=== PATIENT | female | born 2005 | race Caucasian/White ===

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

== ENCOUNTER 2023-09-15 21:55 | Outpatient (CLI) | payer OTHER, SELFPAY ==
--- OUTSIDE RECORDS SUMMARY | 2023-09-15 22:15 | XMS RPT_ITS | CCD ---
Author Name Unknown Address [address] [place] [address] Organization [facility] Care Team Providers Care Sap Portal Developer Name Role Phone CHRISTIAN QUIJANO Admitting Unavailable CHRISTIAN QUIJANO Attending Unavailable CHRISTIAN QUIJANO Primary Care Unavailable BART, DR CHRIS Hopper Attending Unavaila manuel ARRIAGA, DR CHRIS Hopper Primary Care Unavaila manuel ARRIAGA, DR CHRIS Hopper Admitting Unavaila EDWIGE Cueto MD Attending Unavail able PHYSICIAN, NONE Primary Care Unavailable Unavailable Primary Care Provider UnavailKRYSTA Martinez Referring Unavailable KRYSTA RIVAS Attending Unavailable ROBBI SIMMONS Attending Unavailable KRYSTA RIVAS Referring Unavailable KRYSTA RIVAS Referring Unavailable MARIA ISABEL BENAVIDEZ Attending Unavailable Medications Current Medications Medication Drug Class(es) Dates Sig (Normalized) Sig (Original) azithromycin 500 mg oral tablet (1 source) Macrolide Antimicrobial Start: 09-13-2023 End: 09-13-2023 take 2 tablets by mouth once azithromycin (ZITHROMAX) 500 mg tablet Take 2 tablets by mouth one time only for 1 dose. 2 tablet 0 09/13/2023 09/13/2023 Active Completed/Discontinued Medications Medication Drug Class(es) Dates Sig (Normalized) Sig (Original) vit/iron fum/folic ac (-FOLIC ACID ORAL) (5 sources) take 1 tablet by hakeem th once daily before mealtime vit/iron fum/folic ac (-FOLIC ACID ORAL) Take 1 tablet by mouth once daily. 0 Active Problems Problem Classification Problem Date Documented Da te Episodic/Chronic Anxiety disorders (6 sources) Anxiety; Translations: [Anxiety disorder, unspecified] Onset: 07-20-2023 08-14-2023 Chronic Other complications of (6 sources) Maternal obesity complicating , childbirth and the puerperium, antepartum; Translations: [Obesity complicating , second trimester] Onset: 07-20-2023 08-14-2023 Chronic Other complications of (1 source) Obesity complicating , second trimester; Translations: [Obesity affecting in second trimester, unspecified obesity type] Onset: 07-20-2023 Chronic Other complications of (7 sources) Late entry into care; Translations: [Supervision of with insufficient care, second trimester] Onset: 07-20-2023 08-14-2023 Episodic Other complications of (6 sources) Nausea and vomiting; Translations: [Vomiting of , unspecified] Onset: 07-20-2023 08-14-2023 Episodic Other complications of (6 sources) Vaginal discharge; Translations: [Other specified related conditions, second trimester] Onset: 07-20-2023 07-20-2023 Episodic Other complications of (5 sources) Infectious disease in mother complicating , childbirth AND/OR puerperium; Translations: [Other maternal infectious and parasitic diseases complicating , first trimester] Onset: 07-21-2023 07-21-2023 Episodic Other hematologic conditions (3 sources) Microcytosis; Translations: [Other abnormality of red blood cells] Onset: 08-16-2023 08-16-2023 Episodic Other non-traumatic joint disorders (5 sources) Hip pain; Translations: [Pain in right hip] Onset: 07-20-2023 07-20-2023 Episodic Other and delivery including normal (9 sources) with uncertain dates; Translations: [Encounter for supervision of normal , unspecified, first trimester] Onset: 07-20-2023 07-20-2023 Episodic Other screening for suspected conditions (not mental disorders or infectious disease) (1 source) Patient encounter status; Translations: [Encounter for other screening follow-up] 08-30-2023 Episodic Other skin disorders (5 sources) Hidradenitis suppurativa; Translations: [Hidradenitis suppurativa] Onset: 07-20-2023 07-20-2023 Episodic Residual codes; unclassified (2 sources) Gestation period, 18 weeks; Translations: [18 weeks gestation of ] 08-14-2023 Episodic Residual codes; unclassified (5 sources) Gestation period, 15 weeks; Translations: [15 weeks gestation of ] Onset: 07-20-2023 07-20-2023 Episodic Residual codes; unclassified (5 sources) FH: Chromosomal anomaly; Translations: [Family history of other congenital malformations, deformations and chromosomal abnormalities] Onset: 07-20-2023 07-20-2023 Episodic Residual codes; unclassified (5 sources) Insomnia; Translations: [Insomnia, unspecified] Onset: 07-20-2023 07-20-2023 Episodic Residual codes; unclassified (1 source) Gestation period, 21 weeks; Translations: [21 weeks gestation of ] 08-31-2023 Episodic Residual codes; unclassified (1 source) Gestation period, 22 weeks; Translations: [22 weeks gestation of ] 09-11-2023 Episodic Residual codes; unclassified (1 source) 18 weeks gestation of ; Translations: [18 weeks gestation of ] Onset: 08-30-2023 Episodic Residual codes; unclassified (1 source) 15 weeks gestation of ; Translations: [15 weeks gestation of ] Onset: 07-20-2023 Episodic Screening and history of mental health and substance abuse codes (5 sources) History of post-traumatic stress disorder; Translations: [Personal history of other mental and behavioral disorders] Onset: 07-20-2023 07-20-2023 Episodic Results Test Name Value Interpretation Reference Range Facil ity Vital Signs Date Time Vital Sign Value Performing Clinician Lubna mayers 09-11-2023 14:31-0500 Body weight 123.29 kg Robbi Simmons MD Work Phone: [facility] 09-11-2023 14:31-0500 Diastolic blood pressure 70 mm[Hg] Robbi Simmons MD Work Phone: [facility] 09-11-2023 14:31-0500 Systolic blood pressure 120 mm[Hg] Robbi Simmons MD Work Phone: [facility] 08-14-2023 14:34-0500 Body weight 121.11 kg Maria Isabel Benavidez APRN.BASSEM Work Phone: [facility] 08-14-2023 14:34-0500 Diastolic blood pressure 60 mm[Hg] Maria Isabel Benavidez APRN.CNM Work Phone: [facility] 08-14-2023 14:34-0500 Systolic blood pressure 106 mm[Hg] Maria Isabel Benavidez APRN.CNM Work Phone: [facility] Encounters Encounter Date Encounter Type Care Provider Facility Start: 09-13-2023 Telephone encounter Maria Isabel melchor COMMUNICATIONS PROGRAMMER.CNM Work Phone: OB/Gynecology Procedures Date Procedure Procedure Detail Performing Clinician Start: 08-30-2023 Us preg uterus after 1st trimest 07/10 gestation Krysta Rivas COMMUNICATIONS PROGRAMMER.TUGBOAT OPERATOR Work Phone: Start: 08-14-2023 Antibody screen KRYSTA H ABRAM Plan of Treatment Date Care Activity Detail Author Start: 02-19-2025 Urine microalbumin profile DTaP,Tdap,Td Vaccine (7 - Td or Tdap) [facility] Start: 09-10-2024 GC (Gonorrhea) Screening (18-24) GC (Gonorrhea) Screening (18-24) [facility] Start: 09-10-2024 Screening for Chlamydia trachomatis Chlamydia Screening (18-24) [facility] Start: 07-20-2024 GC (Gonorrhea) Screening (18-24) GC (Gonorrhea) Screening (18-24) [facility] Start: 07-20-2024 Screening for Chlamydia trachomatis Chlamydia Screening (18-24) [facility] Start: 10-12-2023 End: 01-11-2024 CBC W Auto Differential panel - Blood CBC + DIFF Lab Routine 22 weeks gestation of Late care affecting in second trimester Encounter for supervision of normal first in second trimester Expected: 10/12/2023 (Approximate), Expires: 01/11/2024 [facility] Work Phone: Immunizations Immunization Date Immunization Notes Care Provider Amando orourke 04-03-2017 influenza virus vacc ine, unspecified formulation Maria Isabel Benavidez APRN.CNM Work Phone: [facility] Payers Date Payer Category Payer Medicaid [id number] 2023 Medicaid [id number] 2023 Unknown [id number] 2022 Unknown 2022 Unknown [id number] 2003 Unknown [id number] 1980 Unknown [id number] 1980 Unknown [id number] Unknown [id number] Social History Date Type Detail Facility Start: 07-20-2023 Tobacco smoking stat [facility] Never smoked tobacco [facility] Start: 07-20-2023 Tobacco use and exposure Smokeless tobacco non-user [facility] Start: 08-14-2023 End: 09-11-2023 Alcohol intake Ex-drinker (finding) [facility] Start: 07-20-2023 End: 08-14-2023 History of Social function [facility] Start: 07-20-2023 End: 08-14-2023 Tobacco use panel [facility] National Score (1-10 0), lower number is lower risk [address] [facility] Start: 07-20-2023 Alcohol Comment occasionally p rior to [facility] Start: 04-20-[address] [facility] Start: 2005 Sex Assigned At Not on file [facility] Goals Date Patient Goal Desired Activity /State Personal health goal Clinical Notes 06-26-2023 to 09-13-2023 Addendum Note - Maria Isabel Benavidez APRN.CNM - 09/13/2023 10:29 AM ESTTelephone Encounter - Maria Isabel Benavidez APRN.CNM - 09/13/2023 10:29 AM ESTPatient InstructionsPatient Instructions Note Date & Type Note Facility 09-13-2023 Miscellaneous Notes Addended by: MARIA ISABEL BENAVIDEZ on: 09/13/2023 10:29 AM Modules accepted: Orders Rx sent. Maria Isabel Benavidez APRN.CNM Addended by: JACQUELINE SOLORIO on: 09/13/2023 09:21 AM Modules accepted: Orders Patient notified and voiced understanding. Health department form filled out and faxed. Patient testing also positive for BV. Discussed results with patient. Please order medication for BV. Thank you. Jacqueline Solorio RN Rx sent for Azithromycin 1000 mg PO X1 dose. This is recommended treatment in . Patient's partner will need treated. Maria Isabel Benavidez APRN.CNM Patient 22w6d, positive for Chlamydia. Please review and order medication in SW's absence. Jacqueline Solorio RN documented in this encounter [facility] 09-11-2023 Miscellaneous Notes Formattin g of this note might be different from the original. SW- Pt doing well. No pain, vb, lof. No FM yet. PE: Gen- NAD, well appearing Abd- Soft, gravid, NT Ext- No edema - White-lugo vaginal discharge present See flowsheet A/p 22 wk gestation - DHRUV for chlamydia completed today - She feels mood stable and declines counseling - 28 wk labs ordered - BV, yeast for discharge - RTO 2 wks Robbi Simmons DO documented in this encounter [facility] 09-11-2023 Instructions Raquel Newman MA - 09/11/2023 2:30 PM EST SEQUENTIAL SCREENINGS The [facility] offers sequential screenings for women who are interested in screenings for chromosomal abnormalities and certain defects during a . The sequential screen combines ultrasound and blood tests to determine the risk of chromosomal abnormalities, including Down's Syndrome (Trisomy 21) and Trisomy 18, as well as open neural tube defects including spina bifida. Ultrasound examination is performed between 11 weeks and 13 weeks gestational age. Blood tests are drawn after the ultrasound and again later in the between 15 and 21 weeks gestational age. Please let your physician know if you are interested in this testing. It will require an appointment with our medical instrument technician. This is not an ultrasound performed by a physician in our office during a routine visit. SIGNS AND SYMPTOMS OF LABOR 1. Contractions every 10 minutes or more often 2. Clear, pink, or brownish fluid (water) leaking from vagina 3. Feeling that baby is pushing down, pressure 4. Low, dull backache 5. Cramps that feel like a period 6. Cramps with or without diarrhea If you notice any of the above symptoms, contact our office at [phone] and ask to speak with a nurse. After hours, you can call doctors registry at [phone] OR call [facility] at [phone] and ask to have the doctor infusion therapy nurse paged. If you consider this an emergency, dial 9-1-6 or go to your nearest emergency department. NEED HELP? Are you dealing with a violent or abusive relationship? Are you a victim of rape or sexual assult? Call [facility] ([place]) 24 hour Crisis Hotline: 373.776.1342 or 493-831-9355. MANUAL Your Guide to a Healthy manual is now on-line. Visit [email or web address] to download your free copy documented in this encounter [facility] 08-14-2023 Miscellaneous Notes Formattin g of this note might be different from the original. Wahandat message sent regarding suboptimal views of anatomy and need of follow up. Krysta Rivas APRN.RAN documented in this encounter [facility] 08-14-2023 Miscellaneous Notes Formattin g of this note might be different from the original. S: Adilene Thurman is a 17 year old female who presents at 18.4 weeks gestation for a routine visit. Just completed anatomy US - needs repeat views in 2 weeks. Thinks she may have started feeling flutters. Continues to have random emesis. Denies any acid reflux. Denies headache, visual changes, chest pain, shortness of breath, vaginal bleeding, leakage of fluid, or dysuria. Feeling well, no complaints. O: See flow sheet Gen: No apparent distress Abd: Gravid, non tender ASSESSMENT/PLAN: 1. 18 weeks gestation of - ICD9: V22.2, ICD10: Z3A.18 (primary diagnosis) 2. Obesity affecting in second trimester, unspecified obesity type - ICD9: 649.13, ICD10: O99.212 3. Late care affecting in second trimester - ICD9: V23.7, ICD10: O09.3 4. Nausea/vomiting in - ICD9: 643.90, ICD10: O21.9 5. Anxiety - ICD9: 300.00, ICD10: F41.9 - Chlamydia- needs DHRUV next visit - Reviewed if unable to keep food or liquids down >24 hours to notify office - RTO- 2 weeks for repeat anatomy and 4 weeks for LINDSEY Benavidez APRN.CNM documented in this encounter [facility] 08-14-2023 Instructions Vida Hill Ma - 08/14/2023 2:34 PM EST SEQUENTIAL SCREENINGS The [facility] offers sequential screenings for women who are interested in screenings for chromosomal abnormalities and certain defects during a . The sequential screen combines ultrasound and blood tests to determine the risk of chromosomal abnormalities, including Down's Syndrome (Trisomy 21) and Trisomy 18, as well as open neural tube defects including spina bifida. Ultrasound examination is performed between 11 weeks and 13 weeks gestational age. Blood tests are drawn after the ultrasound and again later in the between 15 and 21 weeks gestational age. Please let your physician know if you are interested in this testing. It will require an appointment with our medical instrument technician. This is not an ultrasound performed by a physician in our office during a routine visit. SIGNS AND SYMPTOMS OF LABOR 1. Contractions every 10 minutes or more often 2. Clear, pink, or brownish fluid (water) leaking from vagina 3. Feeling that baby is pushing down, pressure 4. Low, dull backache 5. Cramps that feel like a period 6. Cramps with or without diarrhea If you notice any of the above symptoms, contact our office at [phone] and ask to speak with a nurse. After hours, you can call doctors registry at [phone] OR call [facility] at [phone] and ask to have the doctor infusion therapy nurse paged. If you consider this an emergency, dial [phone] or go to your nearest emergency department. NEED HELP? Are you dealing with a violent or abusive relationship? Are you a victim of rape or sexual assult? Call [facility] ([place]) 24 hour Crisis Hotline: 261.411.9750 or 997-009-2218. MANUAL Your Guide to a Healthy manual is now on-line. Visit [email or web address] to download your free copy documented in this encounter [facility] 07-20-2023 Note HNO ID: [id number] Author: KRYSTA RIVAS APRN.TUGBOAT OPERATOR Service: ? Author Type: Nurse Practitioner Type: Progress Notes Filed: 07/20/2023 13:34 Note Text: INITIAL OB ASSESSMENT HPI: Adilene is a 17 year old No obstetric history on file. White here to establish Obstetrical Care. Patient's last menstrual period was 04/06/2023 (exact date). from OB Dating Form. Do you have regular periods/menstrual cycles? Yes was unplanned but accepted Complaints: No-vomiting every few days OB History T0 L0 SAB0 IAB0 Ectopic0 Multiple0 Live Births0 How many pregnancies have you had before? none Have you had a prior olivo between 20w and 36w6d? No Did you present in active spontaneous labor or have ruptured membranes, or advanced cervical dilation (greater than or equal to 4 cm) or effacement? No Did you have a previous baby with a GBS Infection? No Please select all that apply for any prior : N/A Did you have a partner with Herpes? No Prior : never History of 4th degree laceration: N/A Patient's Risk Screening for delivery: MEDICAL/PSYCHOSOCIAL HISTORY: History of hemorrhage or bleeding concerns: No Thyroid Disease: No History of chronic hypertension: No History of pre-existing diabetes: No BMI 45.13 kg/(m2) History of abnormal pap: No Prior treatment for cervical dysplasia: none. History of STDs: None Tobacco use: No E-Cigarette/Vaping Use: No Caffeine use: No Drug use: No Alcohol use: No Multivitamin with Folic acid: Yes Religion or heritage: No Would refuse blood transfusion if medically necessary: No No results found for: ABORHD Social Needs: How often does this describe you? I don't have enough money to pay my bills: Often Within the past 12 months, have you worried that your food would run out before you had money to buy more? Never In the past 12 months, has lack of reliable transportation kept you from going to medical appointments or work, or from getting things needed for daily living? Never In the past 12 months, have you had any concerns about having a place to live, or about the condition or quality of your housing? Never Would you like more information on any of the following (please check all that apply)? No Social History: Do you have any history of depression, anxiety, PTSD, or other mood problems? Yes -PTSD in 2020-feels it has resolved. Do you have a history of abuse or trauma that may impact your experience? No Are you currently employed? Yes Depression/Anxiety Screening: denies symptoms of depression. OB Depression and Anxiety Screening- This Encounter (since 07/19/2023) Over the past 2 weeks have you felt down, depressed, or hopeless? Negative Over the past two weeks, have you felt little interest or pleasure in doing things?? Negative Feeling nervous, anxious or on edge 3-Nearly every day Not being able to stop or control worrying 0-Not al all Anxiety Pre-Screening Total (If >/= 3 additional questions will be reviewed) 3 Worrying too much about different things 0-Not al all Trouble relaxing 0-Not al all Being so restless that it is hard to sit still 0-Not al all Becoming easily annoyed or irritable 1-Several days Feeling afraid, as if something awful might happen 0-Not al all Anxiety (LILY) Full Screening Total 4 ACOG Recommended Screening: Screening for early gestational diabetes testing: Criteria for early testing requires elevated BMI plus one other risk factor: BMI 45.13 kg/(m2) (risk factor if > than 25 or 23 in Americans) Additional risk factors: None She does meet ACOG criteria for early gestational DM screening. Screening for low dose aspirin use for the prevention of pre-eclampsia: Low dose aspirin should be considered if the patient has one high or two moderate risk factors: High risk factors: None Moderate risk ractors: Nulliparity and Obesity (body mass index greater than 30) She does meet criteria for low dose ASA Marital Status:Co-habitating Partner: Name: Doug Gamble Age: 24 Occupation: [employer] Gender: Male History of STDs: None History reviewed. No pertinent past medical history. History reviewed. No pertinent surgical history. Current Outpatient Medications Medication Sig Dispense Refill vit/iron fum/folic ac (-FOLIC ACID ORAL) Take 1 tablet by mouth once daily. No current facility-administered medications for this visit. Allergies As of Date: 07/20/2023 (No Known Allergies) Fully Assessed 07/20/2023 Does patient have penicillin allergy: No REVIEW OF SYSTEMS: GENERAL: Negative for: Fever or Chills HEENT: Negative for: Headache, Impaired Vision, Ringing in Ears, Nosebleeds NECK: Negative for: Swelling, Pain, Stiffness RESPIRATORY: Negative for: Shortness of breath, Wheezing + cough GASTROINTESTINAL: Negative for: Heartburn, Constipation, Diarrhea (more content not included)... [facility] 06-26-2023 Note HNO ID: [id number] Author: Isabel Marte APRN.TUGBOAT OPERATOR Service: ? Author Type: Nurse Practitioner Type: Progress Notes Filed: 06/26/2023 7:08 PM Note Text: Subjective The history is provided by the patient. No languages and literature instructor was used. HPI Adilene Thurman is a 17 year old female who presents today for CC of sore throat, fever for 4 days. She is also having cough, congestion and runny nose. She has used no treatment or medication. No known exposure to strep or covid. BP 126/82 Pulse 106 Temp 36.9 ?C (98.5 ?F) Resp 16 Wt 125.6 kg (277 lb) SpO2 97% No past medical history on file. I have confirmed and edited as necessary, the [facility] Review of Systems Constitutional: Positive for fever (ist day) and malaise/fatigue. Negative for chills. HENT: Positive for congestion, sinus pain and sore throat. Negative for ear pain. Respiratory: Positive for cough. Negative for sputum production, shortness of breath and wheezing. Cardiovascular: Negative for chest pain. Gastrointestinal: Negative for abdominal pain, diarrhea, nausea and vomiting. Musculoskeletal: Positive for myalgias. Neurological: Positive for headaches. Objective Physical Exam Vitals and nursing note reviewed. HENT: Head: Normocephalic and atraumatic. Right Ear: Tympanic membrane, ear canal and external ear normal. Left Ear: Tympanic membrane, ear canal and external ear normal. Nose: Mucosal edema, congestion and rhinorrhea present. Right Sinus: No maxillary sinus tenderness or frontal sinus tenderness. Left Sinus: No maxillary sinus tenderness or frontal sinus tenderness. Mouth/Throat: Pharynx: Uvula midline. Posterior oropharyngeal erythema present. No oropharyngeal exudate. Cardiovascular: Rate and Rhythm: Normal rate and regular rhythm. Heart sounds: Normal heart sounds. Pulmonary: Effort: Pulmonary effort is normal. Breath sounds: Normal breath sounds. Lymphadenopathy: Head: Right side of head: No submental, submandibular or tonsillar adenopathy. Left side of head: No submental, submandibular or tonsillar adenopathy. Cervical: No cervical adenopathy. Skin: General: Skin is warm and dry. Neurological: Mental Status: She is alert. Psychiatric: Mood and Affect: Affect normal. ASSESSMENT/PLAN: 1. Sore throat - ICD9: 462, ICD10: J02.9 (primary diagnosis) - suspect viral - Group A strep molecular testing negative - Discussed supportive care treatment with fluids, rest and analgesia. - The patient may also use warm salt water gargles, throat lozenges and/or OTC throat spray as needed. - The patient should follow up in one week if symptoms persist or worsen - Call back if drooling, increased temperature, symptoms of dehydration and/or still sick in one week 2. URI with cough and congestion - ICD9: 465.9, ICD10: J06.9 - Discussed viral etiology and rationale for treatment. - Symptomatic treatment with prn analgesia - Supportive care with fluids and rest Testing ordered Comfort measures discussed - see patient instructions. When to seek higher level of care Notified in 12-24 hours with results, available on mychart - COVID AND INFLUENZA A/B AND RSV NAAT, ROUTINE Diagnosis and treatment plan were discussed and questions were answered to the patient's satisfaction. Pt acknowledged understanding of concepts and follow up plan. Specific signs and symptoms that would indicate the need for higher level of care were discussed in detail warranting prompt ER evaluation. Isabel Marte APRN.CNP [facility] Diagnosis 18 weeks gestation of - Primary state, incidental [facility] Diagnosis Encounter for follow-up ultrasound of anatomy- Primary 21 weeks gestation of state, incidental [facility] Diagnosis 22 weeks gestation of - Primary state, incidental Late care affecting in second trimester Encounter for supervision of normal first in second trimester Supervision of normal first Vaginal discharge Leukorrhea, not specified as infective documented in this encounter [facility] for referral (narrative)* Diagnostic Procedure Only (Routine) - Pending Review Specialty Diagnoses / Procedures Referred By Miguelangel banks Referred To Contact [facility] Diagnoses 18 weeks gestation of Procedures OBSTETRIC ULTRASOUND WHI US PREG UTERUS AFTER 1ST TRIMEST GESTATION Krysta Rivas APRN.CNP [address] [place] [address] [address] Referral ID Status Reason Start Date Expiration Date Visits Requested Visits Authorized [id number] Pending Review Auto-Generat ed Referral 08/14/2023 08/13/2024 1 1 [facility] Summary Purpose Family History No Family History Records FoundNo Family History Records FoundNo Family History Records Found Advance Directives No Advanced Directives Records FoundNo Advanced Directives Records FoundNo Advanced Directives Records Found Health Concerns Problem Noted Date Diagnosed Date [facility] - [facility] 07/20/2023 [place] - [place] 07/20/2023 Problem Noted Date Diagnosed Date [facility] Education - [facility] 07/20/2023 Education - [place] 07/20/2023 Problem Noted Date Diagnosed Date [facility] Education - [facility] 07/20/2023 Education - [place] 07/20/2023 Problem Noted Date Diagnosed Date [facility] Education - [facility] 07/20/2023 Education - [place] 07/20/2023 Problem Noted Date Diagnosed Date [facility] Education - [facility] 07/20/2023 [place] - [place] 07/20/2023 Additional Source Comments INFORMATION SOURCE (unrecogn ized section and content) DATE CREATED AUTHOR AUTHOR'S ORGANIZ ATION 04/16/2023 [facility] ([place]) DATE CREATED AUTHOR AUTHOR'S ORGANIZ ATION 09/14/2023 [facility] Source Comments (unrecognize d section and content) In the event this informatio n is protected by the Federal Confidentiality of Alcohol and Drug Abuse Patient Records regulations: The Federal rules restrict any use of the information to criminally investigate or prosecute any alcohol or drug abuse patient.[facility] HospitalIn the event this information is protected by the Federal Confidentiality of Alcohol and Drug Abuse Patient Records regulations: The Federal rules restrict any use of the information to criminally investigate or prosecute any alcohol or drug abuse patient.[facility] HospitalIn the event this information is protected by the Federal Confidentiality of Alcohol and Drug Abuse Patient Records regulations: The Federal rules restrict any use of the information to criminally investigate or prosecute any alcohol or drug abuse patient.[facility] HospitalIn the event this information is protected by the Federal Confidentiality of Alcohol and Drug Abuse Patient Records regulations: The Federal rules restrict any use of the information to criminally investigate or prosecute any alcohol or drug abuse patient.[facility] HospitalIn the event this information is protected by the Federal Confidentiality of Alcohol and Drug Abuse Patient Records regulations: The Federal rules restrict any use of the information to criminally investigate or prosecute any alcohol or drug abuse patient.[facility] Reason for Visit (unrecogniz ed section and content) Reason Comments Results Orders Reason Comments US Specialty Diagnoses / Procedures Referred By Contac t Referred To Contact [facility] Diagnoses 18 weeks gestation of Procedures OBSTETRIC ULTRASOUND WHI US PREG UTERUS AFTER 1ST TRIMEST GESTATION Krysta Rivas, MAURILIO.TUGBOAT OPERATOR [address] [place] [address] [facility] [address] [place] [address] Referral ID Status Reason Start Date Expiration Date V isits Requested Visits Authorized [id number] Closed Auto-Generate d Referral 08/14/2023 08/13/2024 1 1 Reason Onset Date Comments Care 09/11/2023 Reason Comments STD FOR RECORDS PERTAINING TO PATIENTS WHO ARE OR HAVE BEEN ENROLLED IN A CHEMICAL DEPENDENCY/SUBSTANCEABUSE PROGRAM, SOME INFORMATION MAY BE OMITTED. This clinical summary was aggregated from multiple sources. Caution should be exercised in using it in the provision of clinical care. This summary normalizes information from multiple sources, and as a consequence, information in this document may materially change the coding, format and clinical context of patient data. In addition, data may be omitted in some cases. CLINICAL DECISIONS SHOULD BE BASED ON THE PRIMARY CLINICAL RECORDS. [facility] [employer] [facility]. provides no warranty or guarantee of the accuracy or completeness of information in this document.
[2023-09-15 22:17] VITALS: BMI 47.6
[2023-09-15 22:21] VITALS: BP 116/57; PULSE 110; RESP 16; TEMP 36.7
[2023-09-15 22:29] LABS: Color, Urine Yellow (Yellow); Glucose, Dipstick Normal (Normal); Ketone-Dipstick 5 mg/dl (Negative); Leukocyte Esterase-Dipstick 500 /ul (Negative); Nitrite-Dipstick Positive (Negative); Occult Blood-Urine 25 /ul (Negative); Protein-Dipstick 30 mg/dl (Negative); Specific Gravity, Urine 1.025 (1.002-1.030); Urine Bilirubin Dipstick Negative (Negative); Urine Clarity Sl. Cloudy (Clear); Urine Urobilinogen 1 mg/dl (Normal)
[2023-09-15] MEDS: Nitrofurantoin Macrocrystals 100 MG Capsule PO (23:01)
--- NOTE | 2023-09-16 11:53 | OB.TRI.NOTE ---
HPI - General General Date of Service: 09/15/23 HPI Narrative JOSE L VALENTE, is a 18 F who presents with pelvic cramping Maternal Data Information Final DELANEY: 01/11/24 Gestational age: 23&1 PFSH PFSH Allergy/AdvReac Type Severity Reaction Status Date / Time No Known Allergies Allergy Verified 09/15/23 22:41 Assessment & Plan (1) Urinary tract infection affecting care of mother in second trimester, antepartum: PLAN: Plan Macrobid given for UTI in
== END 2023-09-15 23:04 | disposition home or self-care (01) ==
LOC: WPOUT 22:00 → WP 22:01
PROVIDERS: Visit Provider Obstetrics & Gynecology
DX: O23.42 Unspecified infection of urinary tract in pregnancy, second trimester (principal); Z3A.23 23 weeks gestation of pregnancy
CPT/HCPCS: 59025; 59050; 81002; 87077; 87086; 87088; 87186; 99221; G0378

== ENCOUNTER 2023-09-21 19:46 | Outpatient (CLI) | payer OTHER, SELFPAY ==
[2023-09-21 20:02] VITALS: PULSE 127; O2SAT 96
[2023-09-21 20:07] VITALS: BP 120/63; PULSE 116; O2SAT 96
[2023-09-21 20:17] VITALS: BMI 47.5
--- NOTE | 2023-09-22 06:42 | OB.TRI.NOTE ---
HPI - General General Date of Admission: 09/21/23 Date of Service: 09/21/23 Chief Complaint: spotting HPI Narrative JOSE L VALENTE, is a 18 F who presents at 24 week gestation with 1 episode of spotting with wiping. No further bleeding and not having to wear a pad. Some cramping that she has had since being treated for UTI. Still on antibiotic for UTI. Just completed treatment for chlamydia and BV. No lof. No ctx's. Good FM. No abdominal pain other than cramping. PFSH PFSH Allergy/AdvReac Type Severity Reaction Status Date / Time No Known Allergies Allergy Verified 09/21/23 20:19 NST FHR Rate Baby A Baseline: 120 Variability:: Moderate NST Reactive:: Appropriate for gestational age Uterine Activity:: quiet Assessment & Plan (1) 24 weeks gestation of : (2) Spotting affecting : PLAN: Had 1 episode of spotting with wiping. Rh positive. Cervix c/t/h per RN. No ctx's on toco. To finish course of antibiotics for UTI. Will need DHRUV for chlamydia in office, and spotting could be secondary to cervicitis. Bleeding precautions.
== END 2023-09-21 21:20 | disposition home or self-care (01) ==
LOC: WPOUT 19:53 → WP 19:53
PROVIDERS: Visit Provider Obstetrics & Gynecology
DX: O26.852 Spotting complicating pregnancy, second trimester (principal); O26.92 Pregnancy related conditions, unspecified, second trimester; O23.42 Unspecified infection of urinary tract in pregnancy, second trimester; Z3A.24 24 weeks gestation of pregnancy
CPT/HCPCS: 59025; 59050; 99221; G0378

== ENCOUNTER 2023-11-16 16:50 | Outpatient (CLI) | payer OTHER, SELFPAY ==
[2023-11-16] VITALS (18 sets, daily range): BP systolic 102–136; BP diastolic 55–87; PULSE 85–191; RESP 14–18; TEMP 36.4–36.6; O2SAT 86–98; BMI 47.0
[2023-11-16] MEDS: Lactated Ringers 1,000 ML 125 ML IV (17:25)
[2023-11-16] MEDS: Ondansetron 4 MG/2 ML Vial IV (17:35)
--- NOTE | 2023-11-16 17:58 | OB.TRI.NOTE ---
HPI - General General Date of Service: 11/16/23 Chief Complaint: epigastric pain HPI Narrative JOSE L VALENTE, is a 18 F who presents with epigastric pain that radiates into RUQ. She states her pain started early this morning. She then went to work and her pain continued to worsen at work. She thought the pain was because she was hungry, so she ate a sandwich which did not change her pain. She presents to OB triage after her work shift given the pain. She has nausea and vomiting with the pain. No fevers or chills. She denies having RUQ or epigastric pain previously. She denies headache or vision changes. She denies ctx's, cramping, lower abdominal pain, vb, lof. Good FM. PFSH PFSH Allergy/AdvReac Type Severity Reaction Status Date / Time No Known Allergies Allergy Verified 09/21/23 20:19 Physical Exam Const alert and no apparent distress Constitutional Narrative: Upon entering the room the patient was in the restroom to give a urine sample. She walked back to the bed without difficulty and is comfortable appearing General Appearance: comfortable HEENT normocephalic Resp normal respiratory effort GI soft to palpation and non-distended GI Narrative: +Tenderness in epigastric and RUQ area. No rebounding, no guarding, no rigidity. No lower abdominal tenderness Extremity Extremity Narrative: No hyper reflexia on patellar reflexes NST FHR Rate Baby A Baseline: 130 Variability:: Moderate Accelerations:: None Decelerations:: None Uterine Activity:: None Assessment & Plan (1) 32 weeks gestation of : PLAN: CEFM with reassuring FHT at this time. She offers no obstetric complaints. (2) Epigastric pain: PLAN: Tenderness on exam in epigastric and RUQ areas with N/V: - She denies symptoms of pre e, no hyper reflexia on exam, BP's are normal. Check p/c ratio and labs as noted below. Low suspicion for pre eclampsia at this time - IVF hydration started and Zofran x 1 given for nausea - CBC with diff, CMP, amylase, lipase ordered - RUQ US ordered (3) RUQ pain:
[2023-11-16 18:02] LABS: Absolute Lymphocyte Count 1.99 X10^3/uL (0.83-4.51); Absolute Neutrophil Count 12.7 X10^3/uL (2.0-7.7); Basophil# 0.05 X10^3/uL; Basophil% 0.3 % (0-1); Eosinophil# 0.12 X10^3/uL; Eosinophils% 0.8 % (0-5); Hematocrit 35.1 % (37-47); Hemoglobin 11.3 g/dL (12.0-15.0); Lymphocyte # 1.99 X10^3/ul (0.83-4.51); Lymphocyte % 12.9 % (19-41); Mean Corp Hgb Conc 32.2 g/dL (32-36); Mean Corpuscular Hgb 25.8 pg (27.0-32.0); Mean Corpuscular Volume 80.1 fL (81-99); Mean Platelet Vol. 9.4 fl (6.2-12.0); Monocyte# 0.53 X10^3/uL; Monocyte% 3.4 % (0-10); NRBC Flagged by Analyzer 0 % (0-5); Neutrophil # 12.71 X10^3/uL (2.7-7.7); Neutrophil % 82.1 % (47-70); Platelet Count 311 K/mm3 (150-450); RBC Distribution Width CV 15.7 % (11.6-14.6); RBC Distribution Width SD 44.6 fl (35.1-43.9); Red Blood Count 4.38 M/mm3 (4.2-5.4); White Blood Count 15.5 K/mm3 (4.4-11.0)
--- NOTE | 2023-11-16 18:09 | US_ITS ---
INDICATION: RUQ pain EXAMINATION: Ultrasound US Abdomen Limited (quadrant) TECHNIQUE: Mujica scale and color doppler imaging was performed of the right upper quadrant. COMPARISON: No relevant prior comparison study available FINDINGS: LIVER: 1. The liver has normal configuration although is enlarged at 20.3 cm out. Mild fatty infiltration noted. No hepatic masses or ductal dilatation. Normal directional flow within the portal vein. 2. No focal hepatic lesion. There is no free fluid. GALLBLADDER AND BILIARY TREE: Gallbladder is mildly distended and contains a multiple dependent stones. Gallbladder wall estimated 2.1 mm. The proximal common bile duct measures 2.9 mm, which is within normal limits for the patient''s age. Sonographic Zhou''s sign: Negative. PANCREAS: No focal abnormality is demonstrated in the pancreas. No pancreatic ductal dilatation. Tail is suboptimally visualized obscured by bowel gas. RIGHT kidney: RIGHT kidney has normal configuration, no solid or cystic masses or hydronephrosis. RIGHT kidney dimension: 11.1 x 5.8 x 4.3 cm. US/Gallbladder IMPRESSION: 1. Cholelithiasis without evidence of biliary ductal dilatation, sonographic Zhou''s sign or pericholecystic fluid. 2. Hepatomegaly, mild hepatic steatosis without hepatic masses or ductal dilatation. 3. Normal appearance of the RIGHT kidney. Electronically Signed: Grady Feng MD at 20:42 EDT ,
[2023-11-16 18:13] LABS: Partial Thromboplast Time 28.3 Seconds (24.1-36.2); Prothrombin Time (Protime)PT. 13.5 SECONDS (11.7-14.9)
[2023-11-16 18:32] LABS: ALB/GLOB Ratio 0.7 RATIO (0.9-2.4); AST(SGOT) 30 U/L (15-37); Alanine Aminotransfer ALT/SGPT 28 U/L (13-56); Albumin, Serum 2.8 g/dL (3.2-5.0); Alkaline Phosphatase 156 U/L (45-117); Amylase 842 U/L (25-115); Anion Gap 8 (5-15); BUN 5 mg/dL (7-18); BUN/Creat Ratio 8.1 RATIO (10-20); Calcium,Total 8.7 mg/dL (8.5-10.1); Chloride 107 mmol/L (98-107); Creatinine, Serum 0.61 mg/dL (0.55-1.02); EST Glomerular Filtration Rate 132 mL/min (>60); Est Glom Filt Rate - Afr Amer 159 mL/min (>60); Globulin 4.2 g/dL (2.2-4.2); Glucose 91 mg/dL (74-106); Lipase 2520 U/L (13-75); Potassium 3.7 mmol/L (3.5-5.1); Sodium Level 138 mmol/L (136-145)
--- NOTE | 2023-11-16 18:54 | CON.PCM.HO_ITS ---
HPI Consult Data Date of Consult: 11/16/23 HPI Narrative HPI Narrative: JOSE L VALENTE, is a 18 F who presents [facility] Allergy/AdvReac Type Severity Reaction Status Date / Time No Known Allergies Allergy Verified 09/21/23 20:19 Lab / Micro Data 11/16/23 17:25 11/16/23 17:25 Labs: Laboratory Results - last 24 hr 11/16/23 17:25: WBC 15.5 H, RBC 4.38, Hgb 11.3 L, Hct 35.1 L, MCV 80.1 L, MCH 25.8 L, MCHC 32.2, RDW Std Deviation 44.6 H, RDW Coeff of Adam 15.7 H, Plt Count 311, MPV 9.4, Immature Gran % (Auto) 0.500, Neut % (Auto) 82.1 H, Lymph % (Auto) 12.9 L, Burnett % (Auto) 3.4, Eos % (Auto) 0.8, Baso % (Auto) 0.3, Absolute Neuts (auto) 12.7 H, Absolute Lymphs (auto) 1.99, Nucleated RBC % 0, PT 13.5, INR 1.0, APTT 28.3, Sodium 138, Potassium 3.7, Chloride 107, Carbon Dioxide 23.0, Anion Gap 8, BUN 5 L, Creatinine 0.61, Est GFR (MDRD) Af Amer 159, Est GFR (MDRD) Non- Af 132, BUN/Creatinine Ratio 8.1 L, Glucose 91, Calcium 8.7, Total Bilirubin 1.00, AST 30, ALT 28, Alkaline Phosphatase 156 H, Total Protein 7.0, Albumin 2.8 L, Globulin 4.2, Albumin/Globulin Ratio 0.7 L, Amylase 842 H, Lipase 2520 H
--- NOTE | 2023-11-16 19:12 | PN_ITS ---
Progress Note At bedside to check on pt after labs returned. She states she is currently not having pain if she lays on her left side. Assessment & Plan Assessment/Plan (1) 32 weeks gestation of : (2) Epigastric pain: PLAN: Reviewed patient labs with hospitalist carton waxing machine operator who agrees with JUAN RUQ US given concern for pancreatitis. Cont IVF hydration. Called MFM carton waxing machine operator at [facility] as well who recommends transport of patient to a tertiary care center given 32 weeks gestation and acute pancreatitis. Discussed results with patient and questions answered. Will transport patient to tertiary care center. (3) RUQ pain:
[2023-11-16 20:14] LABS: Bacteria 0 SEEN /hpf (None Seen); Red Blood Cells-Urine 0 SEEN /hpf (0-5)
[2023-11-16 20:17] LABS: Color, Urine Amber (Yellow); Glucose, Dipstick Normal (Normal); Ketone-Dipstick 50 mg/dl (Negative); Leukocyte Esterase-Dipstick 25 /ul (Negative); Nitrite-Dipstick Negative (Negative); Occult Blood-Urine Negative /ul (Negative); Protein-Dipstick 30 mg/dl (Negative); Specific Gravity, Urine 1.015 (1.002-1.030); Urine Clarity Clear (Clear); Urine Urobilinogen 8 mg/dl (Normal); Urine pH 6.5 (5.0 - 8.0)
[2023-11-16 20:24] LABS: Urine Bilirubin Dipstick 3 mg/dL (Negative)
[2023-11-16 20:25] LABS: Mucous, Urine 1+ /hpf (<or=2+); Squamous Epithelial Cells - UA 5-10 SEEN /hpf (5-10); White Blood Cells 0-5 SEEN /hpf (0-5)
[2023-11-16 20:49] LABS: Cholesterol 219 mg/dL (200); High Density Lipoprotein 76 mg/dL; Triglycerides 183 mg/dL; Very Low Density Lipoprotein 37 mg/dL (5-40)
[2023-11-16 21:08] LABS: Protein, Urine (Random) 33.8 mg/dL (<11.9); Protein:Creat Ratio 103 mg/g CRE (0-200)
[2023-11-17] MEDS: Lactated Ringers 1,000 ML 125 ML IV (00:52)
== END 2023-11-17 01:35 | disposition short-term general hospital (02) ==
LOC: OBT 16:56 → WP 16:57
PROVIDERS: Hospitalist; Visit Provider Obstetrics & Gynecology
DX: O99.891 Other specified diseases and conditions complicating pregnancy (principal); R10.13 Epigastric pain; R10.11 Right upper quadrant pain; Z3A.32 32 weeks gestation of pregnancy
CPT/HCPCS: 96374; 96375; 96361 ×2; 36415; 59025; 59050; 76705; 80053; 80061; 81001; 82150; 82570; 83690; 84156; 85025; 85610; 85730; 87086; 87088; 99221; J7120; G0378; J2405

== ENCOUNTER 2024-01-04 19:14 | Inpatient (IN) | payer OTHER, MEDICAID, SELFPAY ==
--- NOTE | 2024-01-04 19:07 | PCM.HP.OB ---
HPI - General General Date of Admission: 01/04/24 HPI Narrative JOSE L VALENTE, is a 18 F at 39 weeks gestation who presents for scheduled induction of labor for obesity. Pregravid BMI 45. complicated by late care, anemia, positive chlamydia, anxiety, and acute gallstone pancreatitis. Maternal Data Information DELANEY Calculator Estimated Delivery Date Method Current WG Current Estimate 01/11/24 Manual 39w 0d Gestational age: 39.0 weeks gestation PFSH PFSH Home Medications ?Medication ?Instructions ?Recorded ?Last Taken ?Type vit no.95-ferrous 1 tab PO DAILY 11/16/23 11/16/23 History fumarate 28 mg-folic acid 800 mcg tablet () Allergy/AdvReac Type Severity Reaction Status Date / Time No Known Allergies Allergy Verified 09/21/23 20:19 ROS Eyes Eyes: Denies blurry vision, change in vision or spots in vision ENT HEENT: Denies dizziness or headache(s) Cardiovascular Cardiovascular: Denies abdominal pain, chest pain or dyspnea Respiratory/Chest Respiratory/Chest: Denies cough, dyspnea, shortness of breath at rest or shortness of breath with exertion Gastrointestinal Gastrointestinal: Denies abdominal pain, diarrhea or vomiting Genitourinary Genitourinary: Denies change in urinary stream, difficulty urinating or dysuria Musculoskeletal Musculoskeletal: Reports none Integumentary Integumentary: Denies rash Neurologic Neurologic: Denies dizziness, headache(s), memory loss or weakness Psychiatric Psychiatric: Reports none Physical Exam Const alert, oriented x3 and no apparent distress General Appearance: cooperative Orientation / Consciousness: awake Exam Limitations: no limitations HEENT normocephalic Head and Scalp: normal to inspection Eyes General Eye: normal appearance of both eyes Neck full ROM and no lymphadenopathy Lymph Lymphatic: no lymphadenopathy noted Chest inspection of chest normal Resp normal respiratory effort, normal air movement and clear to auscultation bilaterally Effort and Inspection: able to speak in complete sentences and symmetric chest movement Cardio regular rate and regular rhythm GI normal to inspection, nondistended, normoactive bowel sounds Back/Spine normal ROM Extremity full ROM and no calf tenderness Skin no rashes or lesions noted General Skin Exam: no breakdown Neuro oriented x3 and CN's II-XII intact bilaterally Psych mental status grossly normal and thought process normal Labs Labs Labs: Hct 35.1 % (37-47) L Hgb 11.3 g/dL (12.0-15.0) L Syphilis Total Ab Non-reactive Hep Bs Antigen Non-Reactive (Nonreactive) Hepatitis C Antibody Non-Reactive (Nonreactive) Chlamydia DNA (LOVELY) Negative (Negative) N.gonorrhoeae DNA (LOVELY) Negative (Negative) HIV 1&2 Antibody Non-Reactive (Nonreactive) GBS negative Assessment & Plan (1) 39 weeks gestation of : (2) Encounter for induction of labor: (3) Obesity affecting : (4) Anemia affecting , antepartum: (5) Late care affecting : (6) Gallstone pancreatitis: COMMENT: Patient scheduled for surgery 3 weeks post (7) Chlamydia infection affecting : (8) Anxiety: PLAN: Plan Admit to labor and delivery Routine labs GBS negative Cytotec 25 mcg PO every 4 hours x 6 doses total Will attempt placement of berman bulb Dr. Bosch notified of admission and is collaborating physician
[2024-01-04 19:39] VITALS: RESP 16; TEMP 36.8
[2024-01-04 19:40] VITALS: BP 128/76; PULSE 99; O2SAT 97
[2024-01-04 20:01] VITALS: BMI 56.3
[2024-01-04 20:20] LABS: Absolute Neutrophil Count 10.9 X10^3/uL (2.0-7.7); Basophil# 0.03 X10^3/uL; Basophil% 0.2 % (0-1); Eosinophil# 0.07 X10^3/uL; Eosinophils% 0.5 % (0-5); Hematocrit 33.4 % (37-47); Hemoglobin 10.5 g/dL (12.0-15.0); Lymphocyte % 17.8 % (19-41); Mean Corp Hgb Conc 31.4 g/dL (32-36); Mean Corpuscular Hgb 24.8 pg (27.0-32.0); Mean Corpuscular Volume 78.8 fL (81-99); Mean Platelet Vol. 9.4 fl (6.2-12.0); Monocyte# 0.48 X10^3/uL; Monocyte% 3.4 % (0-10); NRBC Flagged by Analyzer 0 % (0-5); Neutrophil # 10.93 X10^3/uL (2.7-7.7); Neutrophil % 77.7 % (47-70); Platelet Count 287 K/mm3 (150-450); RBC Distribution Width CV 16.5 % (11.6-14.6); RBC Distribution Width SD 45.8 fl (35.1-43.9); Red Blood Count 4.24 M/mm3 (4.2-5.4); White Blood Count 14.1 K/mm3 (4.4-11.0)
[2024-01-04] MEDS: miSOPROStol 25 MCG TABLET PO (20:54)
[2024-01-04] MEDS: Lactated Ringers 1,000 ML 50 ML IV (20:56)
[2024-01-04 20:59] LABS: Syphilis Antibodies Non-reactive
[2024-01-05] VITALS (67 sets, daily range): BP systolic 112–177; BP diastolic 58–100; PULSE 78–214; RESP 16–20; TEMP 35.6–37.1; O2SAT 80–100; BMI 48.0
[2024-01-05] MEDS: miSOPROStol 25 MCG TABLET PO ×2 (00:53→05:03)
[2024-01-05] MEDS: 0.9% Normal Saline Single 100 ML IV.SOLN. INTRA-UTER (07:24)
--- NOTE | 2024-01-05 08:36 | PCM.PN.BLA ---
Progress Note Pt resting s/p 3 doses Cytotec. Offers no complaints. Plans epidural. Assessment & Plan Assessment/Plan (1) Encounter for induction of labor: PLAN: Cvx /-2, vertex. Intracervical berman placed in usual fashion and filled with 30 cc saline. Start Pitocin per protocol 4 hours after Cytotec.
[2024-01-05] MEDS: Oxytocin 15 Units/NS 250ml 15 UNITS/250 ML IV.SOLN 2 UNITS IV (09:30)
--- NOTE | 2024-01-05 11:29 | PCM.PN.BLA ---
Progress Note At bedside. Ctx pain rate 5/10. She offers no new complaints Assessment & Plan Assessment/Plan (1) Anxiety: (2) Chlamydia infection affecting : (3) Gallstone pancreatitis: (4) Late care affecting : (5) Anemia affecting , antepartum: (6) Obesity affecting : (7) Encounter for induction of labor: PLAN: Cvx 60/-2, head well applied. AROM performed in usual fashion with return of scant clear fluid. Category 1 tracing. Pt planning for epidural. Cont pitocin per protocol. (8) 39 weeks gestation of :
[2024-01-05] MEDS: Lactated Ringers 1,000 ML 999 ML IV (11:48)
[2024-01-05] MEDS: fentaNYL-bupivacaine (epidural) 100 ML BAG EPIDURAL ×3 (13:34→23:45)
[2024-01-05] MEDS: Lactated Ringers 1,000 ML 200 ML IV ×2 (14:10→19:24)
--- NOTE | 2024-01-05 23:50 | PCM.PN.BLA ---
Progress Note Pt resting comfortably with epidural. She is tired of waiting. Otherwise offers no complaints. Assessment & Plan Assessment/Plan (1) Encounter for induction of labor: PLAN: Cvx /-2, vertex, caput developing. Category 1 tracing. Continuing to titrate Pitocin with IUPC in place. Continue position changes. She has been ruptured now for about 12 hours. Has been 4 cm for about 9 hours. Patient is exhausted and tired of waiting. Discussed waiting 24 hours after rupture as long as heart tracing reassuring to see if she makes cervical change. Discussed r/b/a with a section.
[2024-01-06] VITALS (19 sets, daily range): BP systolic 105–139; BP diastolic 57–89; PULSE 81–106; RESP 14–19; TEMP 36.6–37.1; O2SAT 94–99
[2024-01-06] MEDS: Lactated Ringers 1,000 ML 200 ML IV (00:13)
[2024-01-06] MEDS: Acetaminophen 500 MG Tablet PO (01:11)
[2024-01-06] MEDS: Sodium Citrate/Citric Acid 30 ML UDC PO (01:32)
[2024-01-06] MEDS: Cefazolin 3 GM in 0.9% Normal Saline (100mL Bag) 100 ML IV (01:38)
--- NOTE | 2024-01-06 02:53 | PCM.PN.BLA ---
Progress Note Delayed entry. Patient requesting a primary section. Assessment & Plan Assessment/Plan (1) Encounter for induction of labor: PLAN: Patient requesting a primary section. Discussed r/b/a and consent obtained. Ancef and Azithromycin ordered.
--- NOTE | 2024-01-06 02:54 | PCM.OPRPT ---
Problems Associated Problem List Diagnoses (1) Anxiety: (2) Chlamydia infection affecting : (3) Gallstone pancreatitis: (4) Late care affecting : (5) Anemia affecting , antepartum: (6) Obesity affecting : (7) Encounter for induction of labor: (8) 39 weeks gestation of : Report of Operation Date of Procedure: 01/06/24 Pre-Operative Diagnosis: 39 week gestation, obesity in , planned induction of labor, request for a primary section Post-Operative Diagnosis: As above, CPD Surgery/Procedure Performed:: PLTCS via pfannenstiel incision Description of Surgical Findings:: VFI in OP position with loose nuchal cord x 1. Apgars 9, 9. Clear fluid. Normal appearing placenta. Normal appearing uterus and bilateral adnexa. Narrow pelvis and with caput present. Surgeon: Sofia Simmons dynamics ax solution architect: Merrill CLAIRE Type of Anesthesia: Epidural Special Medications: None Specimen's removed: Placenta Drains: Berman Estimated Blood Loss (mL): 800 Fluids Replaced: 1500 mL Description of Procedure: Indications: The patient presented for scheduled IOL at 39 weeks given obesity. She received 3 doses of Cytotec. An intracervical berman catheter was placed after the cytotec. At time of rupture cervix was at least 3 cm, but difficult exam given patient intolerance with exam and pain. Pitocin was started. She progressed to 4 cm. She was 4 cm for about 10 hours. She was on Pitocin for about 15 hours. She was ruptured for over 12 hours. She requested a primary section given exhaustion. Procedure: The patient was taken to the operating room where epidural anesthesia was found be adequate. She was prepped and draped in the dorsal supine position with leftward tilt. A Pfannenstiel skin incision was made with a scalpel and carried down to the underlying layer of fascia. The fascia was incised in midline. The fascial incision was extended laterally using Olmedo scissors. The fascia was dissected off the rectus muscles both cephalad and caudad using sharp dissection. The rectus muscles were in the midline. The peritoneum was entered bluntly with good visualization of the bladder. The peritoneal incision was extended with traction laterally. A bladder blade was inserted. A low transverse incision was made on the uterus with a scalpel. The uterine incision was extended with cephalad and caudad traction. Clear fluid was present upon entry into the uterus. A vigorous viable female was delivered in cephalic and OP presentation with caput present, and a loose nuchal cord x 1 that was reduced. The pelvis was felt to be narrow at time of delivery. The was delivered without traction, force, or delay and the head was flexed during delivery. The cord was clamped and cut after a slight delay. The placenta was removed with manual extraction. The uterus was cleared of all clot debris. The uterus was exteriorized. The hysterotomy was closed with 1-0 Vicryl in a running locked fashion. Several additional [id number] sutures were placed for hemostasis. The uterus was placed back into the abdomen. Bro was placed over the hysterotomy. Hemostasis was noted. The peritoneum was closed with 3-0 Vicryl. The subfascial space was noted to be hemostatic. The fascia was closed with STRATAFIX in a running fashion. The subcutaneous space was irrigated and made hemostatic with the Bovie cautery. The subcutaneous space was reapproximated with 3-0 Vicryl. The skin was closed with 4 Monocryl in a subcuticular fashion. A silver dressing was placed. Instrument, sponge, sharp counts were correct. The patient was taken to the recovery in stable condition. Batting Machine Operator Insulation Merrill CLAIRE was present for draping patient, delivery of infant, and closure. Grafts/Implants Used: None Procedure Start Time: 01:58 Procedure Stop Time: 02:45 Complications None Admit VTE Documentation VTE Present on Admission: No VTE Mechan Device Prophylaxis: SCD's
[2024-01-06] MEDS: Azithromycin 500 MG in Dextrose 5%-Water (250mL Bag) 250 ML 250 MG IV (03:00)
[2024-01-06] MEDS: Oxytocin 15 Units/NS 250ml 15 UNITS/250 ML IV.SOLN 83 UNITS IV (03:10)
[2024-01-06] MEDS: HYDROmorphone 1 MG/ML Syringe IV ×3 (03:33→20:34)
[2024-01-06] MEDS: Ketorolac 30 MG/ML Syringe IV ×3 (04:05→18:34)
[2024-01-06] MEDS: Lactated Ringers 1,000 ML 100 ML IV ×2 (06:22→15:31)
[2024-01-06] MEDS: Acetaminophen 500 MG Tablet 1000 MG PO ×3 (07:20→18:34)
--- NOTE | 2024-01-06 13:43 | NURSING ---
phone call placed to for decrease urine output. orders received
[2024-01-06] MEDS: Lactated Ringers 1,000 ML 999 ML IV (14:15)
--- NOTE | 2024-01-06 15:14 | CASEMGMT ---
Social Work Assessment Labor and Delivery Unit Date of Referral: 01/06/24 Referred by: Dr. Simmons Date/Time of intervention: 01/06/24,2:30pm Reason for referral: history of anxiety History obtained from: MOB and FOB, YO is Doug Gamble Household composition: TITI lives with her parents, she will return to her home with baby Erika. YO Camacho lives nearby. They have been together for two years. Parent/Guardian Status: MOB is guardian of this baby Medical History: MOB: anemia, late care, Chlamydia, obesity, anxiety, pancreatitis. Baby: Born 01/[birth year], 2:05am via . Weight 3.62 kg. Apgars are 9 and 9 at one and five minutes Financial status: No concerns. 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 Education: MOB graduated HS. FOB completed the 11th grade supplies: They have all needed supplies including diapers, wipes, crib, car seat, clothing, access to bottles and formula. Childcare/Caregivers: MOB, FOB, grandparents on both sides will help. Transportation: They have 2 vehicles Children's Services/Legal Issues/Programs/Agencies involved: None Behavioral Health Issues: Substance abuse--none reported by FOB or MOB, no tox screens completed on this admission. Mental Health--FOB reports no history. SW asked FOB to leave, asked MOB about MH. MOB reports anxiety. She states has had it for a while, has never felt she needed meds or been in counseling for it. She reports some increased anxiety as she got closer to her due date. She explains had more anxiety around the actual than caring for the child. MOB reports she has no safety concerns. Family/Social Stressors: None reported Support Systems: MOB and FOB's parents, MOB's sister, FOAlly's brother. Depression and Anxiety/Shaken Baby/Help Me Grow/[facility] Resources/MH hotlines: SW gave MOB and FOB information on all of these topics and reviewed the information w/them. SW pointed out in particular signs of PPD and if MOB experiencing symptoms, SW encouraged her to to reach out to PCP or [facility], and consider counseling. MOB states understanding. Assessment: MOB and FOB both appropriate w/SW, answered all questions. MOB quiet but appropriate. Baby is asleep in the room in the bassinet. She is currently getting IV fluids in the hope of being able to urinate and then get the berman out. This is frustrating as she wants to get up and shower. Otherwise she reports to be doing okay. SW did ask about the late care, MOB states she did not know she was until her second trimester. Plan: Baby to return home w/MOB and MOB's family.. SW remains available should any social service needs arise. JUDY Delacruz
[2024-01-06] MEDS: Enoxaparin 40 MG/0.4 ML Syringe SC (15:33)
[2024-01-06] MEDS: 0.9% Saline Lock 10 ML Syringe IV ×2 (16:30→20:34)
--- NOTE | 2024-01-06 16:40 | NURSING ---
pt assisted with a shower then returned to bed
--- NOTE | 2024-01-06 16:41 | NURSING ---
dr lawrence on unit made aware that urine output has not yet improved from the fluid bolus- will continue to monitor and encourage po fluids- pt remains on ivf
[2024-01-07] MEDS: Acetaminophen 500 MG Tablet 1000 MG PO ×3 (00:34→13:24)
[2024-01-07] MEDS: Ketorolac 30 MG/ML Syringe IV (00:35)
[2024-01-07] MEDS: 0.9% Saline Lock 10 ML Syringe IV ×2 (00:35→12:03)
[2024-01-07] MEDS: Enoxaparin 40 MG/0.4 ML Syringe SC (03:01)
[2024-01-07 03:07] VITALS: BP 115/84; PULSE 106; RESP 16; TEMP 36.2; O2SAT 97
[2024-01-07] MEDS: Ibuprofen 600 MG Tablet PO ×2 (06:10→12:02)
[2024-01-07 07:01] LABS: Hematocrit 28.5 % (37-47); Hemoglobin 8.7 g/dL (12.0-15.0); Mean Corp Hgb Conc 30.5 g/dL (32-36); Mean Corpuscular Hgb 25.1 pg (27.0-32.0); Mean Corpuscular Volume 82.4 fL (81-99); Mean Platelet Vol. 9.2 fl (6.2-12.0); Platelet Count 253 K/mm3 (150-450); RBC Distribution Width CV 17.1 % (11.6-14.6); RBC Distribution Width SD 49.9 fl (35.1-43.9); Red Blood Count 3.46 M/mm3 (4.2-5.4); White Blood Count 12.3 K/mm3 (4.4-11.0)
[2024-01-07 07:59] VITALS: BP 116/81; PULSE 113; RESP 17; TEMP 36.6; O2SAT 97
[2024-01-07] MEDS: Etonogestrel 68 MG IMPLANT SC (10:42)
--- NOTE | 2024-01-07 11:14 | PCM.PN.OB ---
Subjective Subjective Patient is doing well and desires discharge today. Requests Nexplanon to be placed prior to discharge. Pain is well controlled. She is ambulating and voiding without difficulty. She denies CP, SOB, palpitations, lightheadedness, dizziness. Lochia normal. Tolerating a regular diet without nausea or vomiting. Objective Data Objective Data Vital Signs: Vital Signs Temp Pulse Resp BP Pulse Ox O2 Del Method O2 Flow Rate 97.9 F 113 H 17 116/81 H 97 Room Air 2 01/07/24 07:59 01/07/24 07:59 01/07/24 07:59 01/07/24 07:59 01/07/24 07:59 01/07/24 07:59 01/06/24 05:05 Oxygen Flow Rate (L/min) 2 Oxygen Delivery Method Room Air Weight: 288 lb 9.361 oz Body Mass Index (BMI) 48.0 Intake & Output: Intake and Output for Last 24 Hours 01/05/24 01/06/24 01/07/24 23:59 23:59 23:59 Intake Total 3115.50 / 3115.50 4414.06 / 4414.06 Output Total 1125 / 1125 2105 / 2105 200 / 200 Balance 1990.50 / 1990.50 2309.06 / 2309.06 -200 / -200 Lab / Micro Data 01/07/24 06:00 Labs: Laboratory Results - last 24 hr 01/07/24 06:00: WBC 12.3 H, RBC 3.46 L, Hgb 8.7 L, Hct 28.5 L, MCV 82.4, MCH 25.1 L, MCHC 30.5 L, RDW Std Deviation 49.9 H, RDW Coeff of Adam 17.1 H, Plt Count 253, MPV 9.2 Physical Exam Const alert and no apparent distress General Appearance: comfortable HEENT normocephalic Resp normal respiratory effort GI soft to palpation and non-distended GI Narrative: ATTP, non acute, dressing c/d/i Extremity no calf tenderness Extremity Narrative: 1+ pitting edema bilaterally Assessment & Plan (1) Delivery by section: PLAN: POD#1 s/p section and doing well. Pain well controlled. Desires discharge today and discharge instructions reviewed. Follow up 1-2 weeks for incision check. (2) CPD (cephalo-pelvic disproportion): PLAN: Recommend scheduled repeat section with next . (3) Acute on chronic blood loss anemia: PLAN: Appropriate for surgery. Patient has no symptoms of anemia. Will give dose of IV iron and continue oral iron at home. (4) Obesity affecting : (5) Gallstone pancreatitis: COMMENT: Patient scheduled for surgery 3 weeks post
[2024-01-07] MEDS: Iron Sucrose Complex 200 MG in 0.9% Normal Saline (100mL Bag) 100 ML 220 MG IV (11:16)
--- NOTE | 2024-01-07 11:17 | PCM.OPRPT ---
Problems Associated Problem List Diagnoses (1) Nexplanon insertion: Report of Operation Date of Procedure: 01/07/24 Pre-Operative Diagnosis: Request for Nexplanon Post-Operative Diagnosis: As above Surgery/Procedure Performed:: Nexplanon insertion Description of Surgical Findings:: Scar noted from prior Nexplanon insertion Surgeon: Sofia Simmons Type of Anesthesia: Local Special Medications: Nexplanon Specimen's removed: None Drains: None Estimated Blood Loss (mL): 0 Fluids Replaced: N/A Description of Procedure: Procedure area was prepped and draped in usual sterile fashion. 3 cc of 1% lidocaine was injected for anesthesia at prior insertion site. Nexplanon trocar was inserted subcutaneously and the Nexplanon capsule delivered subcutaneously. The trocar was removed from the insertion site. The Nexplanon capsule was palpated easily by provider and the patient to assure satisfactory placement. Steri strips and a dressing were placed. The patient tolerated the procedure well. Grafts/Implants Used: Nexplanon Complications None
--- NOTE | 2024-01-07 11:24 | DCINST_ITS ---
Discharge Instructions Diet Discharge Diet: No restrictions Activity Discharge Activity: May Drive (once you are strong enough to slam on a brake or turn steering wheel sharply) and May Shower May resume sexual activity in: 6 weeks (no soaking in water and nothing in vagina) Ice area for (Minutes): 15 Weight Bearing Status: Weight bearing as tolerated Lifting Restrictions: nothing heavier than baby Dressing / Incision Call your doctor if your incision/area has: Continuous Slow Oozing, Sudden Increased Bleeding, Increased Pain/ Swelling, Increased Redness, Foul Smelling Discharge and Swelling at the incision site Call your doctor if you observe: Fever of 101 or Higher, Coldness, Increased Pain, Numbness or Tingling, Change in Color, Inability to urinate, Inability to have a bowel movement, Using more than 1 pad per hour, Shortness of breath, Dizziness, Fainting spells, Swelling in the ankles, Chest pain, Prolonged hiccupping, Increased palpitations (irregular heartbeat), Calf discomfort and Uncontrolled pain Suture Line Care: Avoid Pulling/Pushing and Avoid Pinching/Bending Remove Dressing in: 1 week (remove dressing 5-7 days after surgery) Cleanse incision/area with: Soap & Water Follow Up Care Please Follow Up With: Sofia Simmons DO When: 1-2 weeks incision check 6 weeks for visit Test Results: Test results from this visit will be discussed in further detail at your follow- up appointment, if applicable. Discharge Plan Admission Admit Date/Time: 01/04/24 19:14 Primary Reason for Your Visit: Delivery Attending Provider: Sofia Simmons Primary Care Provider: Care PhysicianIta Primary Instructions Patient Instructions: After a Discharge Orders/Prescriptions Prescriptions: New oxycodone 5 mg tablet 5 mg PO Q6H PRN (Reason: pain) 7 Days Qty: 5 0RF ibuprofen 600 mg tablet 600 mg PO Q6H PRN (Reason: pain) Qty: 30 0RF docusate sodium [Colace] 100 mg capsule 100 mg PO BID PRN (Reason: constipation) Qty: 30 0RF ferrous sulfate 325 mg (65 mg iron) tablet 325 mg PO QODAY Qty: 30 0RF Continued PNV cmb#95-ferrous fumarate-FA [] 28 mg iron- 800 mcg tablet 1 tab PO DAILY Referrals / Follow Up: Care Physician,No Primary [Primary Care Provider] - Disposition Disposition (needs filled in before D/C Order can be placed): Home, Self Care
--- NOTE | 2024-01-07 11:25 | PCM.DC.BLA ---
Discharge Summary Date of Admission: 01/04/24 Date of Discharge: 01/07/24 Summary: Patient presented for IOL for obesity at 39 week gestation. She progressed to 4 cm and remained at 4 cm after rupture and Pitocin, and she requested a primary section. See operative report for details. Caput and OP presentation noted at time of delivery, as well as a narrow pelvis. Her pain was controlled and she was eating and voiding without difficulty on discharge. She was given 1 dose of IV iron for acute on chronic blood loss anemia. Discharged to home in stable condition. Meaningful Use Info Meaningful Use Meaningful Use Diagnoses (Choose all that apply): None applicable Ischemic Stroke Statin Dosing Therapy Reference: STATIN DOSE THERAPY REFERENCE: * Patients > 75 years receive moderate or high dose statin therapy. * Patients 75 years or YOUNGER should receive HIGH intensity statin dose unless contraindicated. You will be required to document reason for non-treatment if statin daily dose does not meet guidelines. HIGH DOSE STATIN THERAPY DAILY Atorvastatin > than or = to 40 mg Rosuvastatin > than or = to 20 mg Amlodipine + Atorvastatin > than or = to 2.5/40 mg Ezetimibe + Simvastatin 10/80 mg Simvastatin 80mg Discharge Plan Admission Admit Date/Time: 01/04/24 19:14 Primary Reason for Your Visit: Delivery Attending Provider: Sofia Simmons Primary Care Provider: Care PhysicianIta Primary Instructions Patient Instructions: After a Discharge Orders/Prescriptions Prescriptions: New oxycodone 5 mg tablet 5 mg PO Q6H PRN (Reason: pain) 7 Days Qty: 5 0RF ibuprofen 600 mg tablet 600 mg PO Q6H PRN (Reason: pain) Qty: 30 0RF docusate sodium [Colace] 100 mg capsule 100 mg PO BID PRN (Reason: constipation) Qty: 30 0RF ferrous sulfate 325 mg (65 mg iron) tablet 325 mg PO QODAY Qty: 30 0RF Continued PNV cmb#95-ferrous fumarate-FA [] 28 mg iron- 800 mcg tablet 1 tab PO DAILY Referrals / Follow Up: Care Physician,No Primary [Primary Care Provider] - Disposition Disposition (needs filled in before D/C Order can be placed): Home, Self Care
--- NOTE | 2024-01-12 16:47 | NURSING ---
F/up phone call performed by this IBCLC RN. Pt. did not answer. Voicemail left with unit phone number if patient has questions or concerns.
== END 2024-01-07 14:25 | disposition home or self-care (01) | DRG 787 ==
PROVIDERS: Advanced Practice Midwife; Admitting Provider Obstetrics & Gynecology; Visit Provider Obstetrics & Gynecology
DX: O99.214 Obesity complicating childbirth (principal); D62 Acute posthemorrhagic anemia; E66.9 Obesity, unspecified; O33.9 Maternal care for disproportion, unspecified; O75.81 Maternal exhaustion complicating labor and delivery; Z3A.39 39 weeks gestation of pregnancy; Z37.0 Single live birth; O90.81 Anemia of the puerperium; O69.81X0 Labor and delivery complicated by cord around neck, without compression, not applicable or unspecified
CPT/HCPCS: 59025; 59050; 85025; 85027; 86780; 86850; 86900; 86901; 99221; J1756; J7120; A4216; G0378; J2405

== ENCOUNTER 2025-06-02 09:59 | Emergency (ER) | payer MEDICAID, OTHER, SELFPAY ==
[2025-06-02 09:59] VITALS: BP 165/97; PULSE 104; RESP 18; TEMP 36.4; O2SAT 100; BMI 45.7
--- NOTE | 2025-06-02 10:26 | EKG12_ITS ---
Test Reason : CP Blood Pressure : */* mmHG Vent. Rate : 88 BPM Atrial Rate : 88 BPM P-R Int : 166 ms QRS Dur : 88 ms QT Int : 354 ms P-R-T Axes : 12 45 7 degrees QTcB Int : 428 ms Normal sinus rhythm Normal ECG Confirmed by JANUSZ ROUSSEAU, MARVEL ([id number]), assignment desk editor NAIF LANDEROS ([id number]) on 06/04/2025 9:09:09 AM Referred By: ELVIRA Confirmed By: MARVEL BOUDREAUX MD
--- NOTE | 2025-06-02 10:28 | ED.VIS.CHEST ---
HPI History of Present Illness Chief Complaint: Chest Pain Informant: patient Onset/Context/Timing Onset: Yesterday Activity at onset: sudden Timing: Continuous and Waxes and wanes Quality: Positive for Pressure and Tightness Location: Substernal and Left Chest Worsened By: Nothing Relieved By: Nothing Associated Symptoms: Positive for Nausea, Dyspnea and Acid Reflux; Negative for Vomiting, Diaphoresis, Cough, Fever, Lightheadedness or Palpitations Narrative Narrative: Patient presents with chest pain that began yesterday. Patient states it began rather suddenly. Patient states it has been constant but waxes and wanes. Patient describes it as a tightness and pressure. Patient states it is over the substernal area and epigastric area. Patient states occasionally radiates into the left side of her chest. Patient states nothing makes it worse and nothing makes it better. Patient admits to some nausea but denies any vomiting. Patient admits to some shortness of breath but denies any cough. Patient admits to some heartburn and reflux symptoms. Patient denies any palpitations or diaphoresis. Patient denies any lightheadedness or dizziness. CVD Risk Factors: Positive for Family History 1' </=55; Negative for Hypertension, Diabetes, Hypercholesterolemia or Smoking PE Risk Factors: Positive for Recent Travel/Surgery; Negative for Recent Immobilization, Prior DVT or PE, Cancer or OCP + Smoking + >/=35 PFSH PFSH Medical History CPD (cephalo-pelvic disproportion) Chlamydia infection affecting Gallstone pancreatitis Home Medications ?Medication ?Instructions ?Recorded ?Last Taken ?Type cyclobenzaprine 5 mg tablet 5 mg PO TID 06/02/25 06/01/25 History meloxicam 15 mg tablet 15 mg PO DAILY 06/02/25 06/01/25 History omeprazole 20 mg capsule,delayed 20 mg PO DAILY #30 CAPSULES 06/02/25 Unknown Rx release Allergy/AdvReac Type Severity Reaction Status Date / Time No Known Allergies Allergy Verified 06/02/25 10:00 Surgical History Delivery by section Social History (Updated 06/02/25 @ 11:[address] Brian Worley DO) Smoking Status: Never smoker Electronic Cigarette Use: with nicotine ROS ROS ED Constitutional Constitutional ED: Denies chills or fever(s) Eyes Eyes: Denies blurry vision or change in vision ENT ENT ED: Denies rhinorrhea or sore throat Cardiovascular Cardiovascular: Reports chest pain; Denies palpitations Respiratory/Chest Respiratory/Chest: Reports dyspnea; Denies cough Gastrointestinal Gastrointestinal: Reports nausea; Denies vomiting Genitourinary Genitourinary ED: Denies dysuria or hematuria Musculoskeletal Musculoskeletal: Reports back pain; Denies neck pain Integumentary Denies abscess or rash Neurologic Neurologic: Denies headache(s) or weakness Allergic/Immunologic Allergic/Immunologic ED: Denies mouth swelling or urticaria EXAM Physical Exam Const Vital Signs: 06/02/25 09:59 06/02/25 11:15 06/02/25 12:00 Temperature 97.5 F L Temperature Source Oral Pulse Rate 104 H 92 Respiratory Rate 18 14 Blood Pressure 165/97 H Blood Pressure Mean 119 Pulse Ox 100 98 Oxygen Delivery Method Room Air Room Air Room Air Positive well nourished and well developed General Appearance ED: well developed and NAD HEENT Reports moist mucous membranes normocephalic and atraumatic Neck supple and no JVD Chest Wall palpation of chest normal Resp normal respiratory effort and clear to auscultation bilaterally Cardio regular rate and regular rhythm GI soft to palpation, non-tender and non-distended Extremity normal to inspection General Extremety ED: Negative for edema or tenderness General Extremity: Negative for edema Neuro oriented x3, CN's II-XII intact bilaterally and no sensory deficits noted Sensorium / Orientation: awake and alert Motor Exam: strength 5/5 throughout Psych mental status grossly normal MDM MDM MDM Narrative Medical decision making narrative: Differential diagnosis includes cardiac dysrhythmia, cardiac ischemia, pneumonia, bronchitis, gastroesophageal reflux disease, pancreatitis, and anxiety. EKG will be obtained to assess for cardiac dysrhythmia and cardiac ischemia. Chest x-ray will be obtained to assess for pneumonia or bronchitis. CBC will be obtained to assess for leukocytosis and anemia. Basic metabolic profile will be obtained to assess for electrolyte abnormality and renal function. High-sensitivity troponin will be obtained to assess for cardiac ischemia. 2-hour repeat high-sensitivity troponin will be obtained to assess for ongoing cardiac ischemia. Lipase will be obtained to assess for pancreatitis. History & Record Review Additional record(s) reviewed:: Prior labs Lab Data Attestation: I reviewed the patient's lab results. Lab results narrative: CBC was reviewed and was within normal limits. Basic metabolic profile was reviewed and was within normal limits. Initial high-sensitivity troponin was reviewed and was less than 6. Labs: Laboratory Results - last 24 hr 06/02/25 10:12 WBC 8.9 RBC 4.99 Hgb 13.0 Hct 39.7 MCV 79.6 L MCH 26.1 L MCHC 32.7 RDW Std Deviation 40.9 RDW Coeff of Adam 14.1 Plt Count 279 MPV 9.7 Immature Gran % (Auto) 0.400 Neut % (Auto) 65.8 Lymph % (Auto) 26.5 [place] % (Auto) 5.3 Eos % (Auto) 1.7 Baso % (Auto) 0.3 Absolute Neuts (auto) 5.9 Absolute Lymphs (auto) 2.37 Nucleated RBC % 0 Sodium 138 Potassium 4.2 Chloride 105 Carbon Dioxide 22.6 Anion Gap 11 BUN 8 Creatinine 0.69 L Estim Creat Clear Calc 171.22 Est GFR (MDRD) Non-Af 127 BUN/Creatinine Ratio 11.0 Glucose 120 H Calcium 8.9 Troponin T High Sens < 6 Radiography Chest X-Ray - ED: 2 View, Read by ED Physician, Read by Radiologist and No Acute Disease Diagnostic Testing: Clinical Impression(s) from Imaging Studies Chest X-Ray 06/02/25 10:45 IMPRESSION: Mild degree of increased markings along the medial aspect of the right middle lobe. Follow-up recommended. Reading Location: [place] [id number] PA and lateral chest x-ray was obtained. There are 2 views. On my independent interpretation, lung roe are clear. There is normal cardiac silhouette. Bony thorax is normal. There is no acute process noted. Radiologist also interpreted the x-ray and noted some increased markings along the medial aspect of the right middle lobe. EKG Initial EKG: Attestation: I personally reviewed and interpreted this EKG as follows: Interpretation: Sinus Rhythm (88) and No Acute Injury Pattern Comments: EKG was obtained. On my independent interpretation, it showed a normal sinus rhythm with a rate of 88. SC interval, QRS interval, and QTc intervals were all normal. [place] was normal. There are no acute ST or T wave changes. Prior EKG tracings: not available for review Prior: No Prior Treatment and Re-Evaluation :: Patient is currently GI cocktail. Patient was given aspirin. Patient felt better after GI cocktail. Patient was advised that this is most likely gastritis or gastroesophageal reflux disease. Patient was given a prescription for omeprazole. Patient was instructed to follow-up with her primary care physician in 5 to 7 days. Patient understood and was agreeable with the plan. All questions were answered. Discharge Plan Triage Chief Complaint: Chest Pain ED Provider: Brian Worley Dx/Rx/DC Orders Clinical Impression: Chest pain, GERD (gastroesophageal reflux disease) Instructions: ED GERD (Adult) Prescriptions: New omeprazole 20 mg capsule,delayed release(DR/EC) 20 mg PO DAILY Qty: 30 0RF No Action meloxicam 15 mg tablet 15 mg PO DAILY cyclobenzaprine 5 mg tablet 5 mg PO TID Primary Care Provider: Jacqueline Epperson NP Referrals: Care Physician,No Primary [Non-Staff, Medical] Jacqueline Epperson NP, [employer] [Primary Care Provider, Family Practice] - 5-7 Days Print Language: Tamazight Disposition Disposition: Home, Self Care
[2025-06-02 10:43] LABS: Hematocrit 39.7 % (37-47); Hemoglobin 13.0 g/dL (12.0-15.0); Immature Granulocytes Count 0.040 X10^3/uL (0.0-0.0); Mean Corp Hgb Conc 32.7 g/dL (32-36); Mean Corpuscular Volume 79.6 fL (81-99); Mean Platelet Vol. 9.7 fl (6.2-12.0); NRBC Flagged by Analyzer 0 % (0-5); Platelet Count 279 K/mm3 (150-450); RBC Distribution Width CV 14.1 % (11.6-14.6); RBC Distribution Width SD 40.9 fl (35.1-43.9); Red Blood Count 4.99 M/mm3 (4.2-5.4); White Blood Count 8.9 K/mm3 (4.4-11.0)
--- NOTE | 2025-06-02 10:45 | RAD_ITS ---
PROCEDURE: CHEST PA AND LATERAL 06/02/2025 REASON FOR EXAM: CHEST PAIN TECHNIQUE: Procedure Code: RADCXR Modality: DX Procedure: CHEST PA AND LATERAL COMPARISON: None FINDINGS: Hardware: None Heart: The heart is nonenlarged. Mediastinum: The mediastinal contour is unremarkable. Lungs: Elevation of the right hemidiaphragm. Mild degree of increased markings in the medial aspect of the right middle lobe suggestive of either atelectasis and/or early infiltrate. Follow-up recommended. Bones: The bones are unremarkable. RAD/Chest PA and Lateral IMPRESSION: Mild degree of increased markings along the medial aspect of the right middle l obe. Follow-up recommended. Reading Location: [place] [id number]
[2025-06-02] MEDS: Lidocaine 2% Viscous15 ML UDC 15 ML PO (11:03)
[2025-06-02 11:06] LABS: Anion Gap 11 (5-15); BUN 8 mg/dL (4-19); BUN/Creat Ratio 11.0 RATIO (10-20); Calcium,Total 8.9 mg/dL (7.6-11.0); Carbon Dioxide 22.6 mmol/L (21.0-32.0); Chloride 105 mmol/L (98-108); Estimated Creatinine Clearance 171.22 ml/min (50-250); Glucose 120 mg/dL (70-99); Potassium 4.2 mmol/L (3.3-5.1); Troponin T High Sensitivity < 6 ng/L (<=14)
--- NOTE | 2025-06-02 11:32 | CM.ED ---
Social work Reason for referral: no PCP Referral source: case find SW entered patient's room, introducing self and role at [facility]. Patient accepted SW visit and patient's father and daughter were bedside. Patient stated recently becoming established with a PCP at [facility]. Patient denied further needs at this time. Shellie Clemons, RESEARCH [employer]OD TECHNOLOGIST, [employer]ER
[2025-06-02 12:00] VITALS: PULSE 92; RESP 14; O2SAT 98
[2025-06-02 12:56] VITALS: BP 126/69; PULSE 91; RESP 18; TEMP 36.7; O2SAT 99
[2025-06-02 13:16] LABS: Troponin T High Sens 2 HR < 6 ng/L (<=14)
== END 2025-06-02 12:57 | disposition home or self-care (01) ==
PROVIDERS: Emergency Provider Emergency Medicine; PCP Nurse Practitioner Family; Visit Provider Emergency Medicine
DX: R07.9 Chest pain, unspecified (principal); F17.210 Nicotine dependence, cigarettes, uncomplicated; R06.02 Shortness of breath; K21.9 Gastro-esophageal reflux disease without esophagitis; Z79.899 Other long term (current) drug therapy; M54.9 Dorsalgia, unspecified
CPT/HCPCS: 71046; 80048; 84484; 85025; 93005; 99285; A4216

== ENCOUNTER 2025-07-06 03:46 | Emergency (ER) | payer OTHER, MEDICAID, SELFPAY ==
[2025-07-06 03:46] VITALS: BP 124/87; PULSE 126; RESP 16; TEMP 37.2; O2SAT 98; BMI 44.8
--- NOTE | 2025-07-06 04:09 | CT_ITS ---
PROCEDURE: ABDOMEN/PELVIS W IV CONT ONLY 07/06/2025 REASON FOR EXAM: RIGHT-SIDED ABDOMINAL PAIN TECHNIQUE: Procedure Code: [id number] Modality: CT Procedure: ABDOMEN/PELVIS W IV CONT ONLY Coronal and Sagittal reconstruction series were provided. CONTRAST: 100 cc of Isovue 370. One or more dose reduction techniques were used (e.g., Automated exposure control, adjustment of the mA and/or kV according to patient size, use of iterative reconstruction technique. COMPARISON: Abdominal ultrasound 11/16/2023 FINDINGS: Lung bases: Mild dependent atelectasis Liver: Enlarged measuring 21.1 cm craniocaudally. Focal fatty infiltration along the falciform ligament. No obvious hepatic mass. Gallbladder: Surgically absent. No biliary ductal dilatation. Spleen: Enlarged measuring 14.8 cm in long axis. Pancreas: Normal size without evidence of mass surrounding inflammation or ductal dilation. Adrenals: No adrenal masses. Kidneys: Normal renal sizes. No hydronephrosis. Bladder: Unremarkable. Reproductive Organs: Normal uterine size and contour. Bilateral adnexal cysts measuring 3.3 x 3.8 x 3.2 cm on the right and 5.4 x 3.6 x 4.8 cm on the left. Bowel: No bowel obstruction. No inflammatory changes. Appendix: Normal. Lymph nodes: Unremarkable. Vasculature: The abdominal aorta and IVC are normal. Peritoneum / Retroperitoneum: No free fluid or air. Bones: Unremarkable. No acute fractures. CT/Abdomen/Pelvis W IV Cont ONLY IMPRESSION: 1. No acute findings in the abdomen or pelvis. 2. Hepatosplenomegaly. 3. Focal fatty infiltration along the falciform ligament. 4. Bilateral adnexal cysts. Reading [facility]
--- OUTSIDE RECORDS SUMMARY | 2025-07-06 04:17 | XMS RPT_ITS | CCD ---
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 Date(s) Administered COVID-19 original vaccine, full dose, monovalent (MODERNA) 04/18/2022 05/16/2022 Haemophilus influenzae b (Hib PRP-T) vaccine, 4-dose series (ACTHIB, HIBERIX) 01/05/2004 12/22/2004 Haemophilus influenzae b-hepatitis B (Hib-HepB) vaccine (COMVAX) 2003 06/23/2004 diphtheria tetanus pertussis (DTaP) vaccine, pediatric (INFANRIX) 2003 01/05/2004 06/23/2004 12/22/2004 02/25/2008 hepatitis A (HepA) vaccine, 2-dose series, ped/adol (HAVRIX-PEDS, VAQTA-PEDS) 01/24/2007 01/25/2013 hepatitis B (HepB) vaccine, 3-dose series, age 0 yr - 19 yr (ENGERIX B-PEDS, RECOMBIVAX HB-PEDS) 2003 03/01/2004 human papillomavirus (HPV4) vaccine, quadrivalent (GARDASIL) 02/19/2015 04/23/2015 influenza (IIV3) vaccine, trivalent, PF (AFLURIA, FLUARIX, FLULAVAL, FLUVIRIN, FLUZONE) 04/22/2009 influenza (IIV4) vaccine, age 6 mo - 64 yr, quadrivalent, PF (AFLURIA, FLUARIX, FLULAVAL, FLUZONE) 04/12/2019 05/05/2020 influenza (IIV4) vaccine, quadrivalent (AFLURIA, FLULAVAL, FLUZONE) 06/21/2018 influenza (LAIV3) vaccine, trivalent, live, intranasal (FLUMIST) 04/14/2010 05/03/2011 06/26/2012 influenza (LAIV4) vaccine, quadrivalent, live, intranasal (FLUMIST) 04/23/2015 influenza (ccIIV4) vaccine, age 6+ mo, quadrivalent, PF (FLUCELVAX) 04/03/2017 04/18/2022 influenza vaccine, whole virus 04/30/2004 06/23/2004 05/18/2005 05/29/2008 measles mumps rubella (MMR) vaccine (M-M-R II, PRIORIX) 09/21/2004 02/25/2008 meningococcal (MenACWY-CRM) vaccine, quadrivalent (MENVEO) 02/19/2015 pneumococcal conjugate (PCV13) vaccine, 13 valent (PREVNAR 13) 2003 01/05/2004 06/23/2004 09/21/2004 poliovirus (IPV) vaccine, inactivated (IPOL) 2003 01/05/2004 09/21/2004 02/25/2008 tetanus diphtheria pertussis (Tdap) vaccine, age 7+ yr (ADACEL, BOOSTRIX) 02/19/2015 10/23/2023 varicella (FAITH) vaccine (VARIVAX) 09/21/2004 02/25/2008 Current Medications ferrous sulfate 325 mg (65 mg iron) tablet Take 1 tablet by mouth every other day. acetaminophen 325 mg cap Take 625 mg by mouth as needed for pain. Review of Systems Constitutional: Negative for fever. Skin: Positive for rash. Neurological: Negative. Vital Signs BP 88/66 Pulse 88 Temp (Src) 98 (Oral) Resp 14 Wt 273 lb 2.4 oz (123.9kg) SpO2 98% LMP 01/06/2025 Physical Exam Vitals reviewed. Constitutional: General: She is not in acute distress. Appearance: Normal appearance. She is not ill-appearing, toxic-appearing or diaphoretic. HENT: Head: Normocephalic and atraumatic. Skin: General: Skin is warm and dry. Capillary Refill: Capillary refill takes less than 2 seconds. Neurological: Mental Status: She is alert and oriented to person, place, and time. Psychiatric: Mood and Affect: Mood normal. B (more content not included)... [facility] 07-25-[address] [facility] Telephone (JEANIE) -------- ADILENE THURMAN ([id number]) 1 F Date Time Provider Department 07/25/24 LIA WU During your visit today, we recorded the following information about you: Lia Wu APRN.[facility] 07/25/2024 4:52 PM Signed Actionable Finding Details: Exam: chest xray Date: 01/31/24 Finding: opacity left lung base Recommendation: chest xray Glocalhart: Activated. RONY Outreach Attempt? Yes via Pace[employer] Message with no response. Routed to [facility] scheduling for phone call outreach attempt (1) and final notification per current protocol If any questions/concerns, please re-route to [facility] provider for review. Lia Wu APRN.MAINTENANCE REPAIRER Actionable Findings [facility] [phone] Allergies As of Date: 07/25/2024 (No Known Allergies) Date Reviewed: 03/05/2024 Reviewed by: Alyce Fernandez RN - Fully Assessed Prescriptions as of 12/12/2024 - ferrous sulfate 325 mg (65 mg iron) tablet Take 1 tablet by mouth every other day. - acetaminophen 325 mg cap Take 625 mg by mouth as needed for pain. Problem List As Of Date 07/25/2024 Noted Resolved Hidradenitis suppurativa [L73.2] 07/20/2023 15 weeks gestation of [Z3A.15] 07/20/2023 11/17/2023 with uncertain dates in third trimest*07/20/2023 Obesity affecting in second trimester*07/20/2023 11/17/2023 Vaginal discharge during in second tr*07/20/2023 11/17/2023 History of posttraumatic stress disorder (PTSD)*07/20/2023 Nausea/vomiting in [O21.9] 07/20/2023 11/17/2023 Anxiety [F41.9] 07/20/2023 Family history of Down syndrome [Z82.79] 07/20/2023 Insomnia [G47.00] 07/20/2023 Late care affecting in secon*07/20/2023 11/17/2023 Bilateral hip pain [M25.551, M25.552] 07/20/2023 11/17/2023 Chlamydia infection affecting in firs*07/21/2023 Microcytosis [R71.8] 08/16/2023 11/17/2023 Obesity affecting in third trimester *11/06/2023 Decreased movements in third trimester [O*11/10/2023 11/17/2023 31 weeks gestation of [Z3A.31] 11/10/2023 11/17/2023 Acute gallstone pancreatitis [K85.10] 11/17/2023 32 weeks gestation of [Z3A.32] 11/17/2023 11/17/2023 Prematurity of fetus [P07.30] 11/17/2023 12/11/2023 Allergic rhinitis [J30.9] 09/18/2014 Adenoid hypertrophy [J35.2] 08/22/2014 01/01/2024 Unspecified sinusitis (chronic) [J32.9] 09/18/2014 01/01/2024 Urinary tract infection in mother during pregna*09/18/2023 01/01/2024 BMI (body mass index), pediatric, > 99% for age*02/19/2015 12/11/2023 PTSD (post-traumatic stress disorder) [F43.10] 12/06/2023 Acute gallstone pancreatitis [K85.10] 12/07/2023 12/07/2023 Contraceptive management [Z30.9] 12/07/2023 , GI problems, third trimester [O26.89*12/07/2023 Supervision of high risk in third tri*12/11/2023 35 weeks gestation of [Z3A.35] 12/11/2023 01/01/2024 Iron deficiency anemia [D50.9] Obesity, Class III, BMI >= 40 [E66.813] 01/22/2024 Postoperative abdominal pain [R10.9, G89.18] 01/29/2024 Other ascites [R18.8] 01/29/2024 Intractable generalized abdominal pain [R10.84] 01/29/2024 02/02/2024 Bile leak [K83.9] 01/31/2024 02/02/2024 Encounter Status:Closed by LIA WU on 12/12/24 [facility]NP[facility] Telephone (JEANIE) -------- ADILENE THURMAN ([id number]) 1 F Date Time Provider Department 07/25/24 LIA WU RAAFVC During your visit today, we recorded the following information about you: Lia Wu APRN.CNP 07/25/2024 10:33 AM Signed Actionable Finding Details: Exam: CT Abdomen/pelvis, Chest x-ray Date: 01/28/24, 01/31/24 Finding: nodularity near colon, possible fluid behind uterus, and lung nodule Recommendation: CT Abdomen/pelvis, US Pelvis, Chest x-ray MyChart: Activated. RONY Outreach Attempt? Yes via Glocalhart Message with no response. Routed to [facility] scheduling for phone call outreach attempt (1) and final notification per current protocol MyChart: Not Activated. Routed to [facility] scheduling for phone call outreach attempts (2) and final notification per current protocol If any questions/concerns, please re-route to [facility] provider for review. Lia Wu APRN.CNP Actionable Findings [facility] [phone] Allergies As of Date: 07/25/2024 (No Known Allergies) Date Reviewed: 03/05/2024 Reviewed by: Alyce Fernandez, RN - Fully Assessed Prescriptions as of 12/12/2024 - ferrous sulfate 325 mg (65 mg iron) tablet Take 1 tablet by mouth every other day. - acetaminophen 325 mg cap Take 625 mg by mouth as needed for pain. Problem List As Of Date 07/25/2024 Noted Resolved Hidradenitis suppurativa [L73.2] 07/20/2023 15 weeks gestation of [Z3A.15] 07/20/2023 11/17/2023 with uncertain dates in third trimest*07/20/2023 Obesity affecting in second trimester*07/20/2023 11/17/2023 Vaginal discharge during in second tr*07/20/2023 11/17/2023 History of posttraumatic stress disorder (PTSD)*07/20/2023 Nausea/vomiting in [O21.9] 07/20/2023 11/17/2023 Anxiety [F41.9] 07/20/2023 Family history of Down syndrome [Z82.79] 07/20/2023 Insomnia [G47.00] 07/20/2023 Late care affecting in secon*07/20/2023 11/17/2023 Bilateral hip pain [M25.551, M25.552] 07/20/2023 11/17/2023 Chlamydia infection affecting in firs*07/21/2023 Microcytosis [R71.8] 08/16/2023 11/17/2023 Obesity affecting in third trimester *11/06/2023 Decreased movements in third trimester [O*11/10/2023 11/17/2023 31 weeks gestation of [Z3A.31] 11/10/2023 11/17/2023 Acute gallstone pancreatitis [K85.10] 11/17/2023 32 weeks gestation of [Z3A.32] 11/17/2023 11/17/2023 Prematurity of fetus [P07.30] 11/17/2023 12/11/2023 Allergic rhinitis [J30.9] 09/18/2014 Adenoid hypertrophy [J35.2] 08/22/2014 01/01/2024 Unspecified sinusitis (chronic) [J32.9] 09/18/2014 01/01/2024 Urinary tract infection in mother during pregna*09/18/2023 01/01/2024 BMI (body mass index), pediatric, > 99% for age*02/19/2015 12/11/2023 PTSD (post-traumatic stress disorder) [F43.10] 12/06/2023 Acute gallstone pancreatitis [K85.10] 12/07/2023 12/07/2023 Contraceptive management [Z30.9] 12/07/2023 , GI problems, third trimester [O26.89*12/07/2023 Supervision of high risk in third tri*12/11/2023 35 weeks gestation of [Z3A.35] 12/11/2023 01/01/2024 Iron deficiency anemia [D50.9] Obesity, Class III, BMI >= 40 [E66.813] 01/22/2024 Postoperative abdominal pain [R10.9, G89.18] 01/29/2024 Other ascites [R18.8] 01/29/2024 Intractable generalized abdominal pain [R10.84] 01/29/2024 02/02/2024 Bile leak [K83.9] 01/31/2024 02/02/2024 Encounter Status:Closed by LIA WU on 12/12/24 [facility] ANES POSTPROC EVALon 024 ANES POSTPROC EVAL HNO ID: [id number] Author: DOREEN SANTOS MD Service: Critical Care Author Type: Anesthesiologist Type: Anesthesia Postprocedure Evaluation Filed: 03/05/2024 09:46 Note Text: POST ANESTHESIA EVALUATION NOTE : 2005 Procedure Summary Date: 03/05/24 Room / Location: [facility] - ENDO Anesthesia Start: 858 Anesthesia Stop: 918 Procedure: ERCP Diagnosis: History of biliary duct stent placement Encounter for removal of biliary stent (Biliary stent removal) Scheduled Providers: Kaylyn Ramirez MD; Junior Restrepo APRN.EQUIPMENT MONITOR PHOTOTYPESETTING; Doreen Santos MD Responsible Provider: Doreen Santos MD Anesthesia Type: MAC ASA Status: 2 Anesthesia Type: MAC Last Vitals Vitals Value Taken Time BP 120/60 03/05/24 0930 Temp 36.1 ?C (97 ?F) 03/05/24 0917 HR SpO2 85 03/05/24 0945 Resp 21 03/05/24 0945 SpO2 98 % 03/05/24 0945 Vitals shown include unfiled device data. Post Anesthesia Patient Status Patient Evaluation: PACU. PACU/ICU Patient Condition: stable. Anticipated Disposition: phase 2 then home. Neurological Status: aware and responsive. Pulmonary Status: breathing comfortably on room air Airway Control: returned to baseline unsupported. Cardiovascular Status: stable. Pain Management: clinically adequate Postoperative Hydration: acceptable. Intraoperative Events: no significant anesthesia events Recommendation: continue current plan of care. Anesthesia Observations No Documentation SIGNATURE: Doreen Santos MD PATIENT NAME: Adilene Thurman DATE: March 05, 2024 TIME: 9:45 AM CSN: [id number] [facility] ANES PRE-OPon 03-05-2024 ANES PRE-OP HNO ID: [id number] Author: DOREEN SANTOS MD Service: Critical Care Author Type: Anesthesiologist Type: Anesthesia Preprocedure Evaluation Filed: 03/05/2024 08:29 Note Text: ANESTHESIOLOGY DAY OF SURGERY NOTE : 2005 Procedure Information Date/Time: 03/05/24829 Scheduled providers: Kaylyn Ramirez MD; Junior Restrepo APRN.EQUIPMENT MONITOR PHOTOTYPESETTING; Doreen Santos MD Procedure: ERCP Location: [facility] - ENDO Estimated body mass index is 41.27 kg/m? as calculated from the following: Height as of 02/10/24: 165.1 cm (5' 5). Weight as of 02/12/24: 112.5 kg (248 lb). Most recent hematocrit and potassium results: Hematocrit 29.4 02/01/2024 Potassium 4.5 02/01/2024 Relevant Problems No relevant active problems I - PHYSICAL EVALUATION AIRWAY Patient intubated: No. Tracheostomy tube not present Mallampati: II. TM distance: >3 FB. Neck ROM: full ROM without neurological symptoms. Mouth opening: adequate. Short neck: no. Thick neck: no DENTAL Dental findings: teeth intact. Additional exam findings: yes. CARDIOVASCULAR Normal cardiovascular observations. Rhythm: regular Rate: normal PULMONARY Normal pulmonary observations. Breath sounds clear to auscultation. II - ANESTHESIA PLAN ASA Score: 2 Anesthetic Plan: MAC NPO Status: adequate Beta Soumya Monitoring Plan Monitoring plan: standard ASA. Post Procedure Analgesic Plan Postoperative analgesic plan: parenteral or oral opioids. Informed Consent Anesthetic risks, benefits, alternatives, personnel and consent discussed: yes. Patient / Responsible Alliance Party agrees to proceed: yes Patient / Surrogate agrees to blood products: Yes Significant changes in the patient condition since the History and Physical, not otherwise documented in primary service progress note: no. Potential Anesthesia issues that may suggest increased risk of complications or contraindication to planned procedure: none. Vitals Value Taken Time BP 125/80 03/05/24 0828 Pulse 111 03/05/24 0828 Resp 24 03/05/24827 Temp 36 ?C (96.8 ?F) 03/05/24827 SpO2 99 % 03/05/24827 Outpatient Medications as of 03/05/2024 Medication Sig ferrous sulfate 325 mg (65 mg iron) tablet Take 1 tablet by mouth every other day. acetaminophen 325 mg cap Take 625 mg by mouth as needed for pain. No current facility-administered medications on file as of 03/05/2024. I have interviewed and examined the patient. I have reviewed the medical record and/or the pre-anesthesia evaluation, pertinent labs, and test results. This contains updated information obtained within 48 hours of Surgery/Procedure. SIGNATURE: Doreen Santos MD PATIENT NAME: Adilene Thurman DATE: March 05, 2024 TIME: 8:29 AM CSN: [id number] Normal [facility] ERCPon 03-05-2024 ERCP [facility] Gastrointestinal Endoscopy Patient Name: Adilene Thurman Procedure Date: 03/05/2024 8:51 AM Date of : 2005 Admit Type: Outpatient Age: 18 Room: [place] [address] Gender: Female Note Status: Finalized Attending MD: Kaylyn Ramirez MD, [id number] Procedure: ERCP Indications: Biliary stent removal Providers: Kaylyn Ramirez MD, Jasmin San RN, Janine Shaw RN (Assisting Nurse) Patient Profile: This is a 18 year old female. Refer to note in patient chart for documentation of history and physical. Patient has symptoms of chronic right upper quadrant abdominal pain. Her most recent ERCP for sphincterotomy, ERCP for stent and ERCP for stone removal was within the past three months. She is status post laparoscopic cholecystectomy within the past three months. Referring Physician: Kaylyn Ramirez MD (Referring MD) Medicines: Monitored Anesthesia Care Complications: No immediate complications. Procedure: Pre-Anesthesia Assessment: - Prior to the procedure, a History and Physical was performed, and patient medications and allergies were reviewed. The patient is competent. The risks and benefits of the procedure and the sedation options and risks were discussed with the patient. All questions were answered and informed consent was obtained. Patient identification and proposed procedure were verified by the physician, the nurse, the anesthesiologist and the solar energy sales specialist in the procedure room at 08:59 AM. Mental Status Examination: alert and oriented. Airway Examination: normal oropharyngeal airway and neck mobility. Respiratory Examination: clear to auscultation. CV Examination: normal. Prophylactic Antibiotics: The patient does not require prophylactic antibiotics. Prior Anticoagulants: The patient has taken no anticoagulant or antiplatelet agents. ASA Grade Assessment: II - A patient with mild systemic disease. After reviewing the risks and benefits, the patient was deemed in satisfactory condition to undergo the procedure. The anesthesia plan was to use monitored anesthesia care (MAC). Immediately prior to administration of medications, the patient was re-assessed for adequacy to receive sedatives. The heart rate, respiratory rate, oxygen saturations, blood pressure, adequacy of pulmonary ventilation, and response to care were monitored throughout the procedure. The physical status of the patient was re-assessed after the procedure. After obtaining informed consent, the scope was passed under direct vision. Throughout the procedure, the patient's blood pressure, pulse, and oxygen saturations were monitored continuously. The Endoscope was introduced through the mouth, and advanced to the duodenum and used to inject contrast into the bile duct. The ERCP was accomplished without difficulty. The patient tolerated the procedure well. Moderate Sedation: MAC anesthesia was administered by the anesthesia team. Total Procedure Duration: 0 hours 5 minutes 4 seconds Findings: A production line worker film of the abdomen was obtained. Stent(s) and surgical clips consistent with a previous cholecystectomy were seen. The esophagus was successfully intubated under direct vision. The scope was advanced to a normal major papilla in the descending duodenum without detailed examination of the pharynx, larynx and associated structures, and upper GI tract. The upper GI tract was grossly normal. One stent was removed from the common bile duct using a snare. The stent was found to be patent via the water column test. The bile duct was deeply cannulated with the 15 mm balloon. Contrast was injected. I personally interpreted the bile duct images. Ductal flow of contrast was adequate. Image quality was adequate. Contrast extended to the entire biliary tree. A cholecystectomy had been performed. The main bile duct was normal. A 0.025 inch straight Glidewire was passed into the biliary tree. The biliary tree was swept with a 15 mm balloon starting at the bifurcation. Nothing was found. Impression: - The patient has had a cholecystectomy. - One stent was removed from the common bile duct. - The biliary tree was swept and nothing was found. Recommendation: - Avoid aspirin and nonsteroidal anti-inflammatory medicines for 1 week. - Observe patient's clinical course. - Resume regular diet today. - Discharge patient to home (ambulatory). Procedure Code(s): --- Professional --- 56074, Endoscopic retrograde cholangiopancreatography (ERCP); with removal of foreign body(s) or stent(s) from biliary/pancreatic duct(s) 85252, Endoscopic catheterization of the biliary ductal system, radiological supervision and interpretation Diagnosis Code(s): --- Professional --- Z90.49, Acquired absence of other specified parts of digestive tract Z46.59, Encounter for fitting and adjustment of other gastroin (more content not included)... Normal [facility] ERCP Study observation [facility] 03-05-2024 [facility] Gastrointestinal Endoscopy Patient Name: Adilene Thurman Procedure Date: 03/05/2024 8:51 AM Date of : 2005 Admit Type: Outpatient Age: 18 Room: [place] [address] Gender: Female Note Status: Finalized Attending MD: Kaylyn Ramirez MD, [id number] Procedure: ERCP Indications: Biliary stent removal Providers: Kaylyn Ramirez MD, Jasmin San RN, Janine Shaw RN (Assisting Nurse) Patient Profile: This is a 18 year old female. Refer to note in patient chart for documentation of history and physical. Patient has symptoms of chronic right upper quadrant abdominal pain. Her most recent ERCP for sphincterotomy, ERCP for stent and ERCP for stone removal was within the past three months. She is status post laparoscopic cholecystectomy within the past three months. Referring Physician: Kaylyn Ramirez MD (Referring MD) Medicines: Monitored Anesthesia Care Complications: No immediate complications. Procedure: Pre-Anesthesia Assessment: - Prior to the procedure, a History and Physical was performed, and patient medications and allergies were reviewed. The patient is competent. The risks and benefits of the procedure and the sedation options and risks were discussed with the patient. All questions were answered and informed consent was obtained. Patient identification and proposed procedure were verified by the physician, the nurse, the anesthesiologist and the solar energy sales specialist in the procedure room at 08:59 AM. Mental Status Examination: alert and oriented. Airway Examination: normal oropharyngeal airway and neck mobility. Respiratory Examination: clear to auscultation. CV Examination: normal. Prophylactic Antibiotics: The patient does not require prophylactic antibiotics. Prior Anticoagulants: The patient has taken no anticoagulant or antiplatelet agents. ASA Grade Assessment: II - A patient with mild systemic disease. After reviewing the risks and benefits, the patient was deemed in satisfactory condition to undergo the procedure. The anesthesia plan was to use monitored anesthesia care (MAC). Immediately prior to administration of medications, the patient was re-assessed for adequacy to receive sedatives. The heart rate, respiratory rate, oxygen saturations, blood pressure, adequacy of pulmonary ventilation, and response to care were monitored throughout the procedure. The physical status of the patient was re-assessed after the procedure. After obtaining informed consent, the scope was passed under direct vision. Throughout the procedure, the patient's blood pressure, pulse, and oxygen saturations were monitored continuously. The Endoscope was introduced through the mouth, and advanced to the duodenum and used to inject contrast into the bile duct. The ERCP was accomplished without difficulty. The patient tolerated the procedure well. Moderate Sedation: MAC anesthesia was administered by the anesthesia team. Total Procedure Duration: 0 hours 5 minutes 4 seconds Findings: A production line worker film of the abdomen was obtained. Stent(s) and surgical clips consistent with a previous cholecystectomy were seen. The esophagus was successfully intubated under direct vision. The scope was advanced to a normal major papilla in the descending duodenum without detailed examination of the pharynx, larynx and associated structures, and upper GI tract. The upper GI tract was grossly normal. One stent was removed from the common bile duct using a snare. The stent was found to be patent via the water (more content not included)... [employer] [facility] Radiology Study observation (narrative) [facility] HISTORY PHYSICALon HISTORY PHYSICAL HNO ID: [id number] Author: KAYLYN RAMIREZ MD Service: Gastroenterology Author Type: Physician Type: H&P Filed: 03/05/2024 08:47 Note Text: HISTORY AND PHYSICAL Adilene Thurman, 18 year old female Current history and physical on file: Yes Is a new History and Physical required for today's visit? Yes Indication for procedure: Abdominal pain PROCEDURE(S) SCHEDULED FOR: ERCP (Endoscopic Retrograde CholangioPancreatography with or without biopsy, stenting, dilation, cholangioscopy and/or treatment, based on clinical findings. BASELINE BEHAVIOR: Calm BASELINE ORIENTATION: A AND O x3 All medications and allergies reviewed: Yes Skin Assessment: Warm dry mucus membranes pink Airway/Respiratory Assessment: Airway: visualization of the uvula- Yes Mouth: opening greater than 2 fingerbreadths- Yes Neck: full range of motion- Yes Breath sounds clear/equal- Yes Cardiac Assessment: Regular rate and rhythm without murmur Abdominal Assessment: Abdomen soft, non-tender, no masses or organomegaly. Sedation Plan: MAC Additional Comments: None Kaylyn Ramirez MD [facility] NURSING PROGon 03-05-2024 NURSING PROG HNO ID: [id number] Author: MARCELO LARA RN Service: Nursing Author Type: Registered Nurse Type: Nursing Progress Note Filed: 03/05/2024 09:54 Note Text: 0933 Received report on pt in Endo RR Pt denies c/o pain/discomfort 0943 Discharge instructions given to Patient All questions/concerns addressed 0933 Pt sitting up and drinking fluids without incident 0954 Left Endo in satisfactory condition Marcelo Lara RN [facility] NURSING PROG HNO ID: [id number] Author: HANNAH MEDINA RN Service: Nursing Author Type: Registered Nurse Type: Nursing Progress Note Filed: 03/05/2024 08:32 Note Text: PATIENT EDUCATION TOPIC: PROCEDURE / SURGERY: Procedure/Surgery: ERCP PATIENT NAME: Adilene Thurman PATIENT LOCATION: Room/bed info not found READINESS TO LEARN COGNITIVE ABILITY: Alert and oriented MOTIVATION TO LEARN: Interested FAMILY SUPPORT: None - Unavailable/disintereste d INSTRUCTION PROVIDED TO: Patient PATIENT LEARNS BEST BY: Individual Instruction FACTORS AFFECTING LEARNING: None PHYSICAL LIMITATIONS AFFECTING LEARNING: None LEARNING RESPONSE DIAGNOSIS: ADULT: ERCP PATIENT/FAMILY RESPONSE: Verbalizes understanding of: PRE-PROCEDURE INSTRUCTIONS-Correct action to take to follow pre-procedure instructions METHOD OF INSTRUCTION: Individual instruction FOLLOW-UP PLAN: Complete - No need for follow-up INSTRUCTIONAL AIDS USED: NA SUPPLEMENTAL MATERIAL PROVIDED TO PATIENT: None REFERRAL (RECOMMENDATION): None Electronically Signed By: Hannah Medina [facility] XR ERCP READ ONLYon 03-05-20 XR ERCP READ ONLY * * *Final Report* * * DATE OF EXAM: Mar 05 2024 9:15AM O [id number] - XR ERCP READ ONLY / PROCEDURE REASON: ABDOMEN PAIN/ERCP * * * * Physician Interpretation * * * * CLINICAL INDICATION: ABDOMEN PAIN/ERCP Fluoroscopic Radiation Summary: Plane A, Air Kerma: 21.3 mGy Dose Area Product (DAP): Fluoro time: 1:03 min:sec RESULT: Fluoroscopic provided for endoscopic retrograde cholangiopancreatogram. Please see operative report for further detail. IMPRESSION: Procedural guidance. Channel Marketing Specialist: NEGRO Transcribe Date/Time: Mar 06 2024 1:09P Dictated by : ADAL LARIOS MD This examination was interpreted and the report reviewed and electronically signed by: ADAL LARIOS MD on Mar 06 2024 1:09PM EST [id number]) [facility] ADILENE THURMAN ([id number]) 1 F Date Time Provider Department 03/04/24 KAYLYN RAMIREZ FVENDO During your visit today, we recorded the following information about you: Allergies As of Date: 03/04/2024 (No Known Allergies) Date Reviewed: 02/13/2024 Reviewed by: Joana Hernandez MD - Fully Assessed Reason for Visit: Appointment [186] Cmt: Spoke with patient and confirmed procedure arrival time 0730 for 0830 appointment. When you arrive please go to admitting/registration first, then you will be directed to the Endoscopy Dept.on the 2nd floor. If you have any questions about your appointment or your prep instructions please call [phone]. If you need to reschedule call [phone]. CECILIA Denton Prescriptions as of 03/04/2024 - ferrous sulfate 325 mg (65 mg iron) tablet Take 1 tablet by mouth every other day. - acetaminophen 325 mg cap Take 625 mg by mouth as needed for pain. Problem List As Of Date 03/04/2024 Noted Resolved Hidradenitis suppurativa [L73.2] 07/20/2023 15 weeks gestation of [Z3A.15] 07/20/2023 11/17/2023 with uncertain dates in third trimest*07/20/2023 Obesity affecting in second trimester*07/20/2023 11/17/2023 Vaginal discharge during in second tr*07/20/2023 11/17/2023 History of posttraumatic stress disorder (PTSD)*07/20/2023 Nausea/vomiting in [O21.9] 07/20/2023 11/17/2023 Anxiety [F41.9] 07/20/2023 Family history of Down syndrome [Z82.79] 07/20/2023 Insomnia [G47.00] 07/20/2023 Late care affecting in secon*07/20/2023 11/17/2023 Bilateral hip pain [M25.551, M25.552] 07/20/2023 11/17/2023 Chlamydia infection affecting in firs*07/21/2023 Microcytosis [R71.8] 08/16/2023 11/17/2023 Obesity affecting in third trimester *11/06/2023 Decreased movements in third trimester [O*11/10/2023 11/17/2023 31 weeks gestation of [Z3A.31] 11/10/2023 11/17/2023 Acute gallstone pancreatitis [K85.10] 11/17/2023 32 weeks gestation of [Z3A.32] 11/17/2023 11/17/2023 Prematurity of fetus [P07.30] 11/17/2023 12/11/2023 Allergic rhinitis [J30.9] 09/18/2014 Adenoid hypertrophy [J35.2] 08/22/2014 01/01/2024 Unspecified sinusitis (chronic) [J32.9] 09/18/2014 01/01/2024 Urinary tract infection in mother during pregna*09/18/2023 01/01/2024 BMI (body mass index), pediatric, > 99% for age*02/19/2015 12/11/2023 PTSD (post-traumatic stress disorder) [F43.10] 12/06/2023 Acute gallstone pancreatitis [K85.10] 12/07/2023 12/07/2023 Contraceptive management [Z30.9] 12/07/2023 , GI problems, third trimester [O26.89*12/07/2023 Supervision of high risk in third tri*12/11/2023 35 weeks gestation of [Z3A.35] 12/11/2023 01/01/2024 Iron deficiency anemia [D50.9] Obesity, Class III, BMI >= 40 [E66.01] 01/22/2024 Postoperative abdominal pain [R10.9, G89.18] 01/29/2024 Other ascites [R18.8] 01/29/2024 Intractable generalized abdominal pain [R10.84] 01/29/2024 02/02/2024 Bile leak [K83.9] 01/31/2024 02/02/2024 Encounter Status:Closed by AMBER MÑUOZ on 03/04/24 Normal [facility] CNCOon 02-15-2024 CNCO Letter Text Normal [facility] CNPNon 02-14-2024 CNPN Telephone (GASTNO) -------- ADILENE THURMAN ([id number]) 1 F Date Time Provider Department 02/14/24 KAYLYN RAMIREZ During your visit today, we recorded the following information about you: Poly Lima RN 02/14/2024 10:[address] Ramirez, Please review and sign pending order for ERCP and KUB. Thanks! SHERRI Chen Nicole A 02/15/2024 2:14 PM Signed LVM for patient per message below Arlette Rivera 02/28/2024 2:15 PM Signed My chart messages have seen read by patient LVM again with patient to confirm procedure ERCP stent removal scheduled next Monday at Arlette Rivera 03/06/2024 9:45 AM Signed Stent removed. No further follow up needed Allergies As of Date: 02/14/2024 (No Known Allergies) Date Reviewed: 02/13/2024 Reviewed by: Joana Hernandez MD - Fully Assessed Primary Visit Diagnosis:History of biliary duct stent placement [Z98.890] Other Visit Diagnosis:Encounter for removal of biliary stent [Z46.89] Order(s):ERCP [GI18] Order #: [id number] FUTURE XR ABDOMEN 2V ROUTINE SUPINE W UPRIGHT/DECUB/CTL [[id number]] Order #: [id number] FUTURE Prescriptions as of 03/06/2024 - ferrous sulfate 325 mg (65 mg iron) tablet Take 1 tablet by mouth every other day. - acetaminophen 325 mg cap Take 625 mg by mouth as needed for pain. Problem List As Of Date 02/14/2024 Noted Resolved Hidradenitis suppurativa [L73.2] 07/20/2023 15 weeks gestation of [Z3A.15] 07/20/2023 11/17/2023 with uncertain dates in third trimest*07/20/2023 Obesity affecting in second trimester*07/20/2023 11/17/2023 Vaginal discharge during in second tr*07/20/2023 11/17/2023 History of posttraumatic stress disorder (PTSD)*07/20/2023 Nausea/vomiting in [O21.9] 07/20/2023 11/17/2023 Anxiety [F41.9] 07/20/2023 Family history of Down syndrome [Z82.79] 07/20/2023 Insomnia [G47.00] 07/20/2023 Late care affecting in secon*07/20/2023 11/17/2023 Bilateral hip pain [M25.551, M25.552] 07/20/2023 11/17/2023 Chlamydia infection affecting in firs*07/21/2023 Microcytosis [R71.8] 08/16/2023 11/17/2023 Obesity affecting in third trimester *11/06/2023 Decreased movements in third trimester [O*11/10/2023 11/17/2023 31 weeks gestation of [Z3A.31] 11/10/2023 11/17/2023 Acute gallstone pancreatitis [K85.10] 11/17/2023 32 weeks gestation of [Z3A.32] 11/17/2023 11/17/2023 Prematurity of fetus [P07.30] 11/17/2023 12/11/2023 Allergic rhinitis [J30.9] 09/18/2014 Adenoid hypertrophy [J35.2] 08/22/2014 01/01/2024 Unspecified sinusitis (chronic) [J32.9] 09/18/2014 01/01/2024 Urinary tract infection in mother during pregna*09/18/2023 01/01/2024 BMI (body mass index), pediatric, > 99% for age*02/19/2015 12/11/2023 PTSD (post-traumatic stress disorder) [F43.10] 12/06/2023 Acute gallstone pancreatitis [K85.10] 12/07/2023 12/07/2023 Contraceptive management [Z30.9] 12/07/2023 , GI problems, third trimester [O26.89*12/07/2023 Supervision of high risk in third tri*12/11/2023 35 weeks gestation of [Z3A.35] 12/11/2023 01/01/2024 Iron deficiency anemia [D50.9] Obesity, Class III, BMI >= 40 [E66.01] 01/22/2024 Postoperative abdominal pain [R10.9, G89.18] 01/29/2024 Other ascites [R18.8] 01/29/2024 Intractable generalized abdominal pain [R10.84] 01/29/2024 02/02/2024 Bile leak [K83.9] 01/31/2024 02/02/2024 Encounter Status:Closed by KAYLYN RAMIREZ on 02/15/[address] [facility] CNOVon 02-13-2024 CNOV Office Visit (GENSWS ) -------- ADILENE THURMAN ([id number]) 1 F Date Time Provider Department 02/13/24 1:00 PM JOANA HERNANDEZ During your visit today, we recorded the following information about you: Joana Hernandez MD 02/13/2024 7:50 PM Signed FOLLOW UP VISIT - CHOLECYSTECTOMY NAME: Adilene Thurman CLINIC NO.: [id number] DATE OF SERVICE: 02/13/2024 : 2005 REFERRING PHYSICIAN: Zander Young AND Dr. Simmons Adilene is a patient I am following for a complaint of right upper quadrant pain. Adilene is a 18 year old female with a complaint of upper abdominal pain. Patient noted upper abdominal complaints episodically throughout the later stages of her . On November 15, the patient noted upper abdominal complaints and presented to [facility] with nausea and vomiting. At that time she was noted to have a lipase of 2520 and amylase of 842. Total bilirubin was normal white blood cell count was 15,000. Ultrasound was obtained which demonstrated cholelithiasis and no biliary duct dilatation. Due to the patient's gestational age at 32 weeks the patient was transferred to [facility]. There she was evaluated by both surgery and GI and had rapid improvement in her pancreatic enzymes and improvement in her clinical exam. The patient was discharged on November 17, 2023 with instructions to follow-up with general surgery. Currently the patient's estimated date of delivery was early January but due to multiple factors the patient's planning for induction at the end of December. She still notes occasional left upper and right upper quadrant discomfort but no symptoms severe as previously noted. The patient is being seen by me at the request of Dr. Simmons for my opinion and advice regarding biliary pancreatitis at 32 weeks gestation. She was readmitted a few days after I saw her in November with what was felt to be recurrent pancreatitis. She delivered on January 04, 2024. I performed a laparoscopic cholecystectomy with intraoperative choleangiogram on January 22, 2024. The patient was found of a small stone in the common bile duct. This was flushed with pressure after giving the patient glucagon. Surgery otherwise seemed uneventful. The patient returned to the ER on January 28 and was found to have significant intra-abdominal fluid. She was transferred to [facility]. She underwent ERCP on January 30, 2024. They noted: Impression: - Biliary papillary stenosis, benign. - The entire main bile duct was mildly dilated, acquired. - A bile leak was found. - The patient has had a cholecystectomy. - Choledocholithiasis was found. Complete removal was accomplished by biliary sphincterotomy and balloon extraction. - A biliary sphincterotomy was performed. - The biliary tree was swept. - One plastic stent was placed into the common bile duct. The patient was noted to have one 4 mm stone and was felt to be a stenotic ampulla of Vater. Contrast was noted to be leaking from the cystic duct and an apparent duct of the scope was noted. It was felt there were 2 separate leaks. A sphincterotomy was performed. Due to a large volume of intra-abdominal bowel the patient was taken for diagnostic laparoscopy on January 31, 2024. The clips were noted to be present in the cystic duct and there was noted to be leakage from the cystic duct with a duct of Luschka. The abdominal cavity is irrigated with copious months of saline and aspirated. The patient was discharged on February 01. . The patient currently noted approximately 60 to 100 cc of fluid from her George-Vance drain per day when she was seen last week.. her appetite has been good. she denies fever, chills or abdominal pain. she does note some much improved incisional discomfort. She notes over the weekend that the drainage has decreased and appears more clear VITALS: Last menstrual period 01/08/2024, currently . On examination, the abdomen is benign. The incisions are healing well without signs of infection or inflammation. George-Vance drain has approximately 30cc and already today is nonbilious. The drain was removed Assessment IMPRESSION: status post laparoscopic cholecystectomy with intraoperative cholangiogram PLAN: Patient is doing well. She does not need to follow-up in our office. She should follow-up with gastroenterology for tube removal/exchange as needed. I reached out to Dr. Kaylyn Ramirez who recommended at least a 2-week time course for removal of her biliary stent after the George-Vance was removed. I will forward to him his letter letting him know that the drain was removed today.. Diagnoses: (K80.20) Gallstones (primary encounter diagnosis) (Z87.19) History of acute pancreatitis (R18.8) Other ascites Return to Clinic: The patient is instructed to follow-up with me as needed. ___ Joana (more content not included)... Normal [facility] CNOVon 02-10-2024 CNOV Office Visit (BEREKET ) -------- ADILENE THURMAN ([id number]) 1 F Date Time Provider Department 02/10/24 9:00 AM JOANA HERNANDEZ During your visit today, we recorded the following information about you: Pulse Blood pressure Height Last Period 104/minute 89/62 1.651 m 01/08/24 Joana Hernandez MD 02/11/2024 7:53 AM Signed FOLLOW UP VISIT - CHOLECYSTECTOMY NAME: Adilene Thurman CLINIC NO.: [id number] DATE OF SERVICE: 02/10/2024 : 2005 REFERRING PHYSICIAN: Zander Young AND Dr. Simmons Adilene is a patient I am following for a complaint of right upper quadrant pain. Adilene is a 18 year old female with a complaint of upper abdominal pain. Patient noted upper abdominal complaints episodically throughout the later stages of her . On November 15, the patient noted upper abdominal complaints and presented to [facility] with nausea and vomiting. At that time she was noted to have a lipase of 2520 and amylase of 842. Total bilirubin was normal white blood cell count was 15,000. Ultrasound was obtained which demonstrated cholelithiasis and no biliary duct dilatation. Due to the patient's gestational age at 32 weeks the patient was transferred to [facility]. There she was evaluated by both surgery and GI and had rapid improvement in her pancreatic enzymes and improvement in her clinical exam. The patient was discharged on November 17, 2023 with instructions to follow-up with general surgery. Currently the patient's estimated date of delivery was early January but due to multiple factors the patient's planning for induction at the end of December. She still notes occasional left upper and right upper quadrant discomfort but no symptoms severe as previously noted. The patient is being seen by me at the request of Dr. Simmons for my opinion and advice regarding biliary pancreatitis at 32 weeks gestation. She was readmitted a few days after I saw her in November with what was felt to be recurrent pancreatitis. She delivered on January 04, 2024. I performed a laparoscopic cholecystectomy with intraoperative choleangiogram on January 22, 2024. The patient was found of a small stone in the common bile duct. This was flushed with pressure after giving the patient glucagon. Surgery otherwise seemed uneventful. The patient returned to the ER on January 28 and was found to have significant intra-abdominal fluid. She was transferred to [facility]. She underwent ERCP on January 30, 2024. They noted: Impression: - Biliary papillary stenosis, benign. - The entire main bile duct was mildly dilated, acquired. - A bile leak was found. - The patient has had a cholecystectomy. - Choledocholithiasis was found. Complete removal was accomplished by biliary sphincterotomy and balloon extraction. - A biliary sphincterotomy was performed. - The biliary tree was swept. - One plastic stent was placed into the common bile duct. The patient was noted to have one 4 mm stone and was felt to be a stenotic ampulla of Vater. Contrast was noted to be leaking from the cystic duct and an apparent duct of the scope was noted. It was felt there were 2 separate leaks. A sphincterotomy was performed. Due to a large volume of intra-abdominal bowel the patient was taken for diagnostic laparoscopy on January 31, 2024. The clips were noted to be present in the cystic duct and there was noted to be leakage from the cystic duct with a duct of Luschka. The abdominal cavity is irrigated with copious months of saline and aspirated. The patient was discharged on February 01. . The patient currently notes approximately 60 to 100 cc of fluid from her George-Vance drain per day. her appetite has been good. she denies fever, chills or abdominal pain. she does note some much improved incisional discomfort. VITALS: Last menstrual period 04/06/2023, currently . On examination, the abdomen is benign. The incisions are healing well without signs of infection or inflammation. George-Vance drain has approximately 60 to 70 cc and already today is nonbilious. Assessment IMPRESSION: status post laparoscopic cholecystectomy with intraoperative cholangiogram PLAN: The patient is record her output from her ANTONIO. If it decreases promptly, we will have her follow-up in our [place] office in Monday for drain removal. I will reach out to Dr. Kaylyn Ramirez to plan the time course for removal of her biliary stent. Diagnoses: (K80.20) Gallstones (primary encounter diagnosis) (Z87.19) History of acute pancreatitis Return to Clinic: The patient is instructed to follow-up with me Monday or for drain removal. ___ MD Perfecto Vásquez Angela, MA 02/10/2024 9:12 AM Signed Is the patient having any pain? No 0 on a scale of 0 to 10 Referring Provider: ZANDER YOUNG [[id number]] Allergies As of Date: 0 (more content not included)... Normal [facility] CNDSon 02-02-2024 CNDS HNO ID: [id number] Author: LIANE SALES DO Service: Hospital Medicine Author Type: Physician Type: Discharge Summary Filed: 02/02/2024 19:47 Note Text: DISCHARGE SUMMARY PATIENT NAME: Adilene Thurman ADMISSION DATE: 01/29/2024 DISCHARGE DATE: 02/02/2024 ATTENDING PHYSICIAN: Liane Sales DO Code Status: Full Code PCP: No primary care provider on file. Highest Readmission Risk Score: 22 The 30 day readmissions risk score is derived from an internally validated risk model which evaluates patient level characteristics, utilization history, medication orders and lab results up until the day of discharge. Patients with a score of 40 or above are considered highest risk for readmission. Specific patient level drivers will be listed at the bottom of the summary. TRANSITIONS OF CARE CRITICAL ISSUES: RAMIREZ MEDICATION CHANGES: Patient being discharged on Augmentin 875 mg twice daily for 7 days for empiric treatment given intra-abdominal biliary leak. Patient to follow-up outpatient with general surgery for further management of ANTONIO drain Patient will need repeat ERCP in 3 months for stent removal (Dr Ramirez to arrange) LABS AND PROCEDURES PENDING AT DISCHARGE: Test Results Not Yet Available from This Hospitalization: Please Review at Your Follow Up Appointment Order Current Status ABSCESS AND WOUND CULTURE WITH GRAM STAIN Preliminary result INCIDENTAL OR ACTIONABLE FINDING (Last Refresh: 02/02/2024 7:46 PM) Test(s): XR CHEST 1V FRONTAL PORT REASON FOR HOSPITALIZATION/PRINCIPA L DIAGNOSES: Biliary leak HOSPITAL PROBLEMS: Principal Problem (Resolved): Intractable generalized abdominal pain (POA: Yes) Active Problems: History of posttraumatic stress disorder (PTSD) (POA: Yes) Anxiety (POA: Yes) Postoperative abdominal pain (POA: Yes) Other ascites (POA: Yes) Resolved Problems: Bile leak (POA: Unknown) HOSPITAL COURSE: Adilene Thurman is a 18 year old female with past medical history of gallstone pancreatitis s/p laparoscopic cholecystectomy (01/22/24), 3 weeks post ( delivery) who presented to [facility] on 01/27 for evaluation of RUQ abd pain. Pt transferred to [place] for further management. #Biliary leak # RUQ abdominal pain # Ascites -Pt with hx of gallstone pancreatitis s/p laparoscopic cholecystectomy (01/22/24) -Relevant labs on admission: Lipase normal at 30, T Bili slightly elevated at 1.7, AST 23, ALT 87. No leukocytosis -CT Ab/pelvis: 01/28/24: Moderate to large ascites, indeterminate etiology. Recommend pelvic with Doppler ultrasound to assess the ovaries and exclude the likelihood of loculation of fluid posterior to the uterus extending to cul-de-sac. There is subtle nodularity in the fat adjacent to the proximal descending colon likely due to edema. Short-term follow-up is recommended to exclude omental caking - Patient went for HIDA scan with evidence of biliary leak of relatively large volume. - Patient subsequently underwent ERCP on 01/29 with findings of dilated main bile duct, bile leak, choledocholithiasis. Complete removal was accomplished by biliary sphincterotomy and balloon extraction. Plastic stent placed in the common bile duct -On 01/30, patient underwent diagnostic laparoscopy with general surgery with findings of large volume intraperitoneal bile with placement of ANTONIO drain in gallbladder fossa. Fluid was sent for Gram stain which was negative for any organisms. -Patient cleared for discharge from general surgery perspective. Patient will follow-up outpatient with general surgery for further management of ANTONIO drain. Plan: -Follow-up with general surgery for further management of ANTONIO drain -Continue Augmentin 875 mg twice daily for 7 days for empiric treatment -Continue Tylenol as needed for pain. Small supply of oxycodone provided for breakthrough pain. -Avoid aspirin and NSAIDs for 2 weeks per GI recs -Patient will need repeat ERCP in 3 months for stent removal (Dr Ramirez to arrange) #DARLINE -Restart home iron #Lung nodule -Chest x-ray from 01/30: Finding: Indeterminant appearing incidentally detected nodular lung density on CXR - Recommendation: XR CHEST 2V FRONTAL/LAT Time Frame: 4-6 weeks OPERATIONS/PROCEDURE DURING THIS HOSPITALIZATION: Procedure(s) (LRB): LAPAROSCOPY DIAGNOSTIC (N/A) CONSULTS DURING HOSPITALIZATION: Treatment Team: Attending Provider: Liane Sales DO Primary Service: 5, [facility] PATIENT CONDITION AT DISCHARGE: Stable DISCHARGE DISPOSITION: Home with Self Care PHYSICAL EXAM: BP 124/65 Pulse 78 Temp 36.8 ?C (98.2 ?F) (Oral) Resp 16 Ht 165.1 cm (5' 5) Wt 120.8 kg (266 lb 5.1 oz) LMP 04/06/2023 (Exact Date) SpO2 98% BMI 44.32 kg/m? General: Well-appearing, no acute distress Lungs: Clear to auscultation Cardiac: Regular rate and rhythm, no murmurs appreciated Abdomen: ANTONIO drain in place in right upper quadrant. Recent laparoscop (more content not included)... Normal [facility] CONSULT PROGon 02-02-2024 CONSULT PROG HNO ID: [id number] Author: ZANDER YOUNG MD Service: General Surgery Author Type: Resident Type: Consult Progress Note Filed: 02/02/2024 11:56 Note Text: -------- Attestation signed by Zander Young MD at 02/02/2024 11:56 AM Attending Note I evaluated the patient and personally participated in the ramirez components. I agree with the resident's findings and plan as documented and have discussed the case and management of the patient's care with the resident. Adilene is 2 days s/p laparoscopic washout with drain placement and 3 days status post ERCP. She looks great with no belly pain. Her drain output has decreased some and is much more serous with maybe a little bile staining. I would plan to discharge her with the drain and anticipate removal in a week in the office. I currently have her scheduled for 02/07 in the office with me to assess for drain removal. If there is any concern for persistent bile leak at that time, I will send a drain bilirubin. Signature: Zander Young MD Date: 02/02/2024 Time: 11:52 AM -------- GENERAL SURGERY CONSULT PROGRESS NOTE Adilene Thurman [id number] ASSESSMENT AND PLAN Ms. Thurman is a 18 year old female with PMHx elevated BMI, gallstone pancreatitis during s/p interval cholecystectomy 01/21 who presents with continued abdominal pain, nausea and PO intolerance with CT scan concerning for intrabdominal fluid collection. Now s/p HIDA scan showing bile leak and ERCP with sphincterotomy and stent placement on 01/29. S/P washout and drain placement 01/31/2024 - Regular diet today - Pain control - Abx per primary Isacc Hendricks DO PGY1 General Surgery Patient Active Hospital Problem List: Intractable generalized abdominal pain (01/29/2024) History of posttraumatic stress disorder (PTSD) (07/20/2023) Anxiety (07/20/2023) Postoperative abdominal pain (01/29/2024) Other ascites (01/29/2024) Bile leak (01/31/2024) SUBJECTIVE: No acute events over night. Pain much improved. Mild pain at drain site. Passing gas No other complaints. OBJECTIVE: BP 109/55 Pulse 90 Temp 36.9 ?C (98.4 ?F) (Oral) Resp 17 Ht 165.1 cm (5' 5) Wt 120.8 kg (266 lb 5.1 oz) LMP 04/06/2023 (Exact Date) SpO2 94% BMI 44.32 kg/m? Body mass index is 44.32 kg/m?. GENERAL: Alert and oriented, no acute distress, cooperative. LUNGS: Non labored breathing ABDOMEN: soft, tender only at drain site, mild distension WOUND: steristrips in place clean, dry and intact, drain in place Labs: CBC, Coags, BMP, Mg, Phos Recent Labs 02/01/24 0416 01/31/24 0732 WBC 5.36 9.73 HB 9.2* 11.0* HCT 29.4* 34.7* PLT 333 380 NA 137 137 K 4.5 4.5 CHLOR 101 99 CO2 25 26 BUN 10 12 CREAT 0.63 0.82 GLUC 125* 112* CA 8.3* 8.9 Liver Function, Amylase, AND Lipase Recent Labs 02/01/24 0416 01/31/24 0732 TPROT 5.6* 6.2* ALB 2.9* 3.3* ALT 29 36 AST 21 12* ALKPHOS 203* 274* TBILI 1.0 1.9* I/O past 24h: Intake/Output Summary (Last 24 hours) at 02/02/2024 0652 Last data filed at 02/02/2024 0545 Gross per 24 hour Intake 0 ml Output 280 ml Net -280 ml LDA: Lines, Drains, and Airways Line Duration Peripheral 01/31/24 1653 Right Hand 20 Gauge 1 day Drain Duration Drain/Tube 01/31/24 1830 [facility] Right Upper Quadrant 1 day SURGERY/PROCEDURE: Procedure(s) and Anesthesia Type: * LAPAROSCOPY DIAGNOSTIC - General Normal [facility] CBC panel Auto (Bld)on 01-31 Erythrocyte distribution width (RBC) [Ratio] 15.2 % High 11.5-15.0 [facility] Comment on above: Order Comment: Speci men Type: BLOOD SPECIMENOrdering Facility: [facility] Address: [address] [place] [address] Performed By: #### 5 8410-2 ####[facility] LABORATORYCLIA [id number] [place] [address] [place] Hematocrit (Bld) [Volume fraction] 29.4 % Low 36.0-46.0 [facility] Comment on above: Order Comment: Speci men Type: BLOOD SPECIMENOrdering Facility: [facility] Address: [address] [place] [address] Performed By: #### 5 8410-2 ####[facility] LABORATORYCLIA [id number] [place] [address] [place] Hemoglobin (Bld) [Mass/Vol] 9.2 g/dL Low 11.5-15.5 [facility] Comment on above: Order Comment: Speci men Type: BLOOD SPECIMENOrdering Facility: [facility] Address: [address] [place] [address] Performed By: #### 5 8410-2 ####[facility] LABORATORYCLIA [id number] [place] [address] [place] MCH (RBC) [Entitic mass] 24.5 pg Low 26.0-34.0 [facility] Comment on above: Order Comment: Speci men Type: BLOOD SPECIMENOrdering Facility: [facility] Address: [address] [place] [address] Performed By: #### 5 8410-2 ####[facility] LABORATORYCLIA [id number] [place] [address] [place] MCHC (RBC) [Mass/Vol] 31.3 g/dL Normal 30.5-36.0 [facility] Comment on above: Order Comment: Speci men Type: BLOOD SPECIMENOrdering Facility: [facility] Address: [address] [place] [address] Performed By: #### 5 8410-2 ####[facility] LABORATORYCLIA [id number] [place] [address] [place] MCV (RBC) [Entitic vol] 78.4 fL Low 80.0-100.0 [facility] Comment on above: Order Comment: Speci men Type: BLOOD SPECIMENOrdering Facility: [facility] Address: [address] [place] [address] Performed By: #### 5 8410-2 ####[facility] LABORATORYCLIA [id number] [place] [address] [place] Nucleated RBC (Bld) [#/Vol] 10*3/uL Normal <0.01 [facility] Comment on above: Order Comment: Speci men Type: BLOOD SPECIMENOrdering Facility: [facility] Address: [address] [place] [address] Performed By: #### 5 8410-2 ####[facility] LABORATORYCLIA [id number] [place] [id number] [place] Platelet mean volume (Bld) [Entitic vol] 9.5 fL Normal 9.0-12.7 [facility] Comment on above: Order Comment: Speci men Type: BLOOD SPECIMENOrdering Facility: [facility] Address: [address] [place] [address] Performed By: #### 5 8410-2 ####[facility]ORATORYCLIA [id number] [place] [id number] [place] Platelets (Bld) [#/Vol] 333 10*3/uL Normal 150-400 [facility] Comment on above: Order Comment: Speci men Type: BLOOD SPECIMENOrdering Facility: [facility] Address: [address] [place] [address] Performed By: #### 5 8410-2 ####[facility]ORATORYCLIA [id number] [place] [address] [place] RBC (Bld) [#/Vol] 3.75 10*6/uL Low 3.90-5.20 [facility] Comment on above: Order Comment: Speci men Type: BLOOD SPECIMENOrdering Facility: [facility] Address: [address] [place] [address] Performed By: #### 5 8410-2 ####[facility] LABORATORYCLIA [id number] [place] [address] [place] WBC (Bld) [#/Vol] 5.36 10*3/uL Normal 3.70-11.00 [facility] Comment on above: Order Comment: Speci men Type: BLOOD SPECIMENOrdering Facility: [facility] Address: [address] [place] [address] Performed By: #### 5 8410-2 ####[facility] LABORATORYCLIA [id number] [place] [id number] [facility] CONSULT PROGon 02-01-2024 CONSULT PROG HNO ID: [id number] Author: ISACC HENDRICKS DO Service: General Surgery Author Type: Resident Type: Consult Progress Note Filed: 02/01/2024 13:55 Note Text: GENERAL SURGERY CONSULT PROGRESS NOTE Adilene Thurman [id number] ASSESSMENT AND PLAN Ms. Thurman is a 18 year old female with PMHx elevated BMI, gallstone pancreatitis during s/p interval cholecystectomy 01/21 who presents with continued abdominal pain, nausea and PO intolerance with CT scan concerning for intrabdominal fluid collection. Now s/p HIDA scan showing bile leak and ERCP with sphincterotomy and stent placement on 01/29. S/P washout and drain placement 01/31/2024 - Clears today - Pain control - Abx per primary Isacc Hendricks DO Patient Active Hospital Problem List: Intractable generalized abdominal pain (01/29/2024) History of posttraumatic stress disorder (PTSD) (07/20/2023) Anxiety (07/20/2023) Postoperative abdominal pain (01/29/2024) Other ascites (01/29/2024) Bile leak (01/31/2024) SUBJECTIVE: No acute events over night. Reports incision and diffuse abdominal pain. Pain is improved overall She has not passed gas. She endorses nausea OBJECTIVE: BP 122/64 Pulse 94 Temp 36.6 ?C (97.9 ?F) (Oral) Resp 16 Ht 165.1 cm (5' 5) Wt 120.7 kg (266 lb) LMP 04/06/2023 (Exact Date) SpO2 93% BMI 44.26 kg/m? Body mass index is 44.26 kg/m?. GENERAL: Alert and oriented, no acute distress, cooperative. LUNGS: Non labored breathing ABDOMEN: soft, mildly tender diffusely, and distended WOUND: steristrips in place clean, dry and intact Labs: CBC, Coags, BMP, Mg, Phos Recent Labs 02/01/24 0416 01/31/24 0732 01/30/24 0632 WBC 5.36 9.73 9.72 HB 9.2* 11.0* 11.1* HCT 29.4* 34.7* 35.7* PLT 333 380 406* INR -- -- 1.1 NA 137 137 138 K 4.5 4.5 4.4 CHLOR 101 99 100 CO2 25 26 22 BUN 10 12 13 CREAT 0.63 0.82 0.93 GLUC 125* 112* 105* CA 8.3* 8.9 9.2 MG -- -- 2.0 Liver Function, Amylase, AND Lipase Recent Labs 02/01/24 0416 01/31/24 0732 01/30/24 0632 TPROT 5.6* 6.2* 6.5 ALB 2.9* 3.3* 3.5* ALT 29 36 55* AST 21 12* 22 ALKPHOS 203* 274* 296* TBILI 1.0 1.9* 2.2* I/O past 24h: Intake/Output Summary (Last 24 hours) at 02/01/2024 0712 Last data filed at 02/01/2024 0456 Gross per 24 hour Intake 4000 ml Output 585 ml Net 3415 ml LDA: Lines, Drains, and Airways Line Duration Peripheral 01/29/24 2100 [facility] Short Right Forearm 22 Gauge 2 days Peripheral 01/31/24 1653 Left Wrist 22 Gauge <1 day Peripheral 01/31/24 1653 Right Hand 20 Gauge <1 day Drain Duration Drain/Tube 01/31/24 1830 [facility] Right Upper Quadrant <1 day SURGERY/PROCEDURE: Procedure(s) and Anesthesia Type: * LAPAROSCOPY DIAGNOSTIC - General Normal [facility] Comprehensive metabolic 2000 panelon 02-01-2024 Albumin [Mass/Vol] 2.9 g/dL Low 3.9-4.9 [facility] Comment on above: Order Comment: Speci men Type: BLOOD SPECIMENOrdering Facility: [facility] Address: [address] [place] [address] Performed By: #### 2 4323-8 ####[facility]ORATORYCLIA [id number] [place] [address] [place] ALP [Catalytic activity/Vol] 203 U/L High 34-123 [facility] Comment on above: Order Comment: Speci men Type: BLOOD SPECIMENOrdering Facility: [facility] Address: [address] [place] [address] Performed By: #### 2 4323-8 ####[facility] LABORATORYCLIA [id number] [place] [id number] [place] ALT [Catalytic activity/Vol] 29 U/L Normal 7-38 [facility] Comment on above: Order Comment: Speci men Type: BLOOD SPECIMENOrdering Facility: [facility] Address: [address] [place] [address] Performed By: #### 2 4323-8 ####[facility] LABORATORYCLIA [id number] [place] [id number] [place] Anion gap [Moles/Vol] 11 mmol/L Normal 8-15 [facility] Comment on above: Order Comment: Speci men Type: BLOOD SPECIMENOrdering Facility: [facility] Address: [address] [place] [address] Performed By: #### 2 4323-8 ####[facility] LABORATORYCLIA [id number] [place] [address] [place] AST [Catalytic activity/Vol] 21 U/L Normal 13-35 [facility] Comment on above: Order Comment: Speci men Type: BLOOD SPECIMENOrdering Facility: [facility] Address: [address] [place] [address] Performed By: #### 2 4323-8 ####[facility] LABORATORYCLIA [id number] [place] [address] [place] Bilirubin [Mass/Vol] 1.0 mg/dL Normal 0.2-1.3 [facility] Comment on above: Order Comment: Speci men Type: BLOOD SPECIMENOrdering Facility: [facility] Address: [address] [place] [address] Performed By: #### 2 4323-8 ####[facility] LABORATORYCLIA [id number] [place] [id number] [place] Calcium [Mass/Vol] 8.3 mg/dL Low 8.5-10.2 [facility] Comment on above: Order Comment: Speci men Type: BLOOD SPECIMENOrdering Facility: [facility] Address: [address] [place] [address] Performed By: #### 2 4323-8 ####[facility] LABORATORYCLIA [id number] [place] [id number] [place] Chloride [Moles/Vol] 101 mmol/L Normal 98-107 [facility] Comment on above: Order Comment: Speci men Type: BLOOD SPECIMENOrdering Facility: [facility] Address: [address] [place] [address] Performed By: #### 2 4323-8 ####[facility]ORATORYCLIA [id number] [place] [id number] [place] CO2 [Moles/Vol] 25 mmol/L Normal 22-30 [facility] Comment on above: Order Comment: Speci men Type: BLOOD SPECIMENOrdering Facility: [facility] Address: [address] [place] [address] Performed By: #### 2 4323-8 ####[facility] LABORATORYCLIA [id number] [place] [id number] [place] Creatinine [Mass/Vol] 0.63 mg/dL Normal 0.58-0.96 [facility] Comment on above: Order Comment: Speci men Type: BLOOD SPECIMENOrdering Facility: [facility] Address: [address] [place] [address] Performed By: #### 2 4323-8 ####[facility] LABORATORYCLIA [id number] [place] [id number] [place] Creatinine and Glomerular filtration rate.predicted panel (S/P/Bld) 130 mL/min/1.73m??? Normal >=60 [facility] Comment on above: Order Comment: Speci men Type: BLOOD SPECIMENOrdering Facility: [facility] Address: [address] [place] [address] Result Comment: Idalmis mated Glomerular Filtration Rate (eGFR) is calculated using the 2020 CKD-EPI creatinine equation. This equation utilizes serum creatinine, sex, and age as parameters. The creatinine assay has traceable calibration to isotope dilution-mass spectrometry. Refer to KDIGO guidelines for clinical interpretation. In patients with unstable renal function, e.g. those with acute kidney injury, the eGFR may not accurately reflect actual GFR. Performed By: #### 2 4323-8 ####[facility] LABORATORYCLIA [id number] [place] [id number] [place] Glucose [Mass/Vol] 125 mg/dL High 74-99 [facility] Comment on above: Order Comment: Speci men Type: BLOOD SPECIMENOrdering Facility: [facility] Address: [address] [place] [address] Result Comment: The [place] [employer] (ADA) provides guidance for cutoff values for fasting glucose and random glucose. The ADA defines fasting as no caloric intake for at least 8 hours. Fasting plasma glucose results between 100 to 125 mg/dL indicate increased risk for diabetes (prediabetes). Fasting plasma glucose results greater than or equal to 126 mg/dL meet the criteria for diagnosis of diabetes. In the absence of unequivocal hyperglycemia, results should be confirmed by repeat testing. In a patient with classic symptoms of hyperglycemia or hyperglycemic crisis, random plasma glucose results greater than or equal to 200 mg/dL meet the criteria for diagnosis of diabetes. Reference: Standards of Medical Care in Diabetes 2016, [place] [employer]. Diabetes Care. 2016.39(Suppl 1). Performed By: #### 2 4323-8 ####[facility]ORATORYCLIA [id number] [place] [id number] [place] Potassium [Moles/Vol] 4.5 mmol/L Normal 3.7-5.1 [facility] Comment on above: Order Comment: Speci men Type: BLOOD SPECIMENOrdering Facility: [facility] Address: [address] [place] [address] Performed By: #### 2 4323-8 ####[facility] LABORATORYCLIA [id number] [place] [id number] [place] Protein [Mass/Vol] 5.6 g/dL Low 6.3-8.0 [facility] Comment on above: Order Comment: Speci men Type: BLOOD SPECIMENOrdering Facility: [facility] Address: [address] [place] [address] Performed By: #### 2 4323-8 ####[facility]ORATORYCLIA [id number] [place] [id number] [place] Sodium [Moles/Vol] 137 mmol/L Normal 136-144 [facility] Comment on above: Order Comment: Speci men Type: BLOOD SPECIMENOrdering Facility: [facility] Address: [address] [place] [address] Performed By: #### 2 4323-8 ####[facility] LABORATORYCLIA [id number] [address] [place] [facility] Urea nitrogen [Mass/Vol] 10 mg/dL Normal 7-21 [facility] Comment on above: Order Comment: Speci men Type: BLOOD SPECIMENOrdering Facility: [facility] Address: [address] [place] [address] Performed By: #### 2 4323-8 ####[facility] LABORATORYCLIA [id number] [place] [id number] [facility] ANES POSTPROC EVALon 024 ANES POSTPROC EVAL HNO ID: [id number] Author: ILEANA MARTINO MD Service: Anesthesiology Author Type: Physician Type: Anesthesia Postprocedure Evaluation Filed: 01/31/2024 20:27 Note Text: POST ANESTHESIA EVALUATION NOTE : 2003 Procedure Summary Date: 01/31/24 Room / Location: OR / OR Anesthesia Start: 1638 Anesthesia Stop: 1906 Procedure: LAPAROSCOPY DIAGNOSTIC (Abdomen) Diagnosis: Bile leak (Bile leak [K83.9]) Surgeons: Zander Young MD Responsible Provider: Ileana Martino MD Anesthesia Type: general ASA Status: 2 - Emergent Anesthesia Type: general Airway Type: ETT Last Vitals Vitals Value Taken Time BP 125/75 01/31/242014 Temp 36.2 ?C (97.2 ?F) 01/31/242014 HR SpO2 102 01/31/242017 Resp 23 01/31/242017 SpO2 95 % 01/31/242017 Vitals shown include unfiled device data. Post Anesthesia Patient Status Patient Evaluation: PACU. PACU/ICU Patient Condition: stable. Anticipated Disposition: inpatient floor planned admission. Neurological Status: aware and responsive. Pulmonary Status: breathing comfortably on supplemental oxygen Airway Control: returned to baseline unsupported. Cardiovascular Status: stable. Pain Management: clinically adequate Postoperative Hydration: acceptable. Intraoperative Events: no significant anesthesia events Post Operative Nausea/Vomiting Status: no significant post operative nausea or vomiting Recommendation: continue current plan of care. Anesthesia Observations No Documentation SIGNATURE: Ileana Martino MD PATIENT NAME: Adilene Thurman DATE: January 31, 2024 TIME: 8:27 PM CSN: [id number] [facility] ANES PRE-OPon 01-31-2024 ANES PRE-OP HNO ID: [id number] Author: ILEANA MARTINO MD Service: Anesthesiology Author Type: Physician Type: Anesthesia Preprocedure Evaluation Filed: 01/31/2024 20:29 Note Text: ANESTHESIOLOGY DAY OF SURGERY NOTE : 2003 Procedure Information Date/Time: 01/31/24 1610 Procedure: LAPAROSCOPY DIAGNOSTIC (Abdomen) Location: OR10 / OR Surgeons: Zander Young MD Estimated body mass index is 41.27 kg/m? as calculated from the following: Height as of this encounter: 165.1 cm (5' 5). Weight as of this encounter: 112.5 kg (248 lb). Most recent hematocrit and potassium results: Hematocrit 34.7 01/31/2024 Potassium 4.5 01/31/2024 Relevant Problems NEURO-PSYCH (+) History of posttraumatic stress disorder (PTSD) HI: 18 y/o female with a PMH significant for PTSD, anxiety and acute cholecystitis s/p laparoscopic cholecystectomy at [place] with subsequent ERCP complicated by bilary leak with significant abdominal pain who is now here for diagnostic laparoscopy. At the time of examination, the patient is hyperventilating with diaphragmatic splinting due to severe abdominal pain and unable to lie flat. I - PHYSICAL EVALUATION AIRWAY Patient intubated: No. Tracheostomy tube not present Mallampati: II. TM distance: >3 FB. Neck ROM: full ROM without neurological symptoms. Mouth opening: adequate. Short neck: no. Thick neck: no DENTAL Dental findings: teeth intact. Additional exam findings: yes. CARDIOVASCULAR Rhythm: regular PULMONARY Breath sounds clear to auscultation. II - ANESTHESIA PLAN ASA Score: 2; emergent. Anesthetic Plan: general Airway type: ETT The patient is not a current smoker. NPO Status: adequate Anesthetic plan additional comments: Fentanyl given for abdominal pain in pre-op. Plan to induce the patient in the sitting position on hospital bed and use video-laryngoscopy for intubation. Beta Soumya Monitoring Plan Monitoring plan: standard ASA. Post Procedure Analgesic Plan Postoperative analgesic plan: parenteral or oral opioids. Informed Consent Anesthetic risks, benefits, alternatives, personnel and consent discussed: yes. Patient / Responsible Alliance Party agrees to proceed: yes Patient / Surrogate agrees to blood products: Yes Potential Anesthesia issues that may suggest increased risk of complications or contraindication to planned procedure: none. Vitals Value Taken Time BP 117/81 01/31/24 1618 Pulse 127 01/31/24 1618 Resp 22 01/31/24 1618 Temp 36.2 ?C (97.2 ?F) 01/31/24 1618 SpO2 97 % 01/31/24 1618 Facility-Administered Medications as of 01/31/2024 Medication Dose Route Frequency [COMPLETED] lactated ringers 500 mL iv bolus 500 mL INTRAVENOUS ONCE [COMPLETED] lactated ringers 1,000 mL iv bolus 1,000 mL INTRAVENOUS ONCE [COMPLETED] HYDROmorphone 0.5 mg injection (DILAUDID) 0.5 mg INTRAVENOUS ONCE [COMPLETED] indomethacin 100 mg suppository (INDOCIN) 100 mg RECTAL ONCE [Held on Transfer] acetaminophen 1,000 mg tab(s) (TYLENOL) 1,000 mg ORAL q 8 H PRN [Held on Transfer] oxyCODONE IR 5 mg tab(s) (ROXICODONE) 5 mg ORAL q 6 H PRN [Held on Transfer] HYDROmorphone 0.5 mg injection (DILAUDID) 0.5 mg INTRAVENOUS q 3 H PRN [COMPLETED] HYDROmorphone 1 mg injection (DILAUDID) 1 mg INTRAVENOUS ONCE [COMPLETED] piperacillin-tazobactam iv piggyback 3.375 g in dextrose (iso-osmotic) 50 mL (ZOSYN) 3.375 g INTRAVENOUS ONCE [Held on Transfer] NaCl 0.9% iv flush bag 20 mL INTRAVENOUS PRN [Held on Transfer] ondansetron 4 mg tab(s) (ZOFRAN) 4 mg ORAL q 6 H PRN Or [Held on Transfer] ondansetron (PF) 4 mg injection (ZOFRAN) 4 mg INTRAVENOUS q 6 H PRN [Held on Transfer] melatonin 3 mg tab(s) 3 mg ORAL DAILY (8 PM) [Held on Transfer] piperacillin-tazobactam iv piggyback 3.375 g in dextrose (iso-osmotic) 50 mL (ZOSYN) 3.375 g INTRAVENOUS q 6 H [COMPLETED] HYDROmorphone 0.5 mg injection (DILAUDID) 0.5 mg INTRAVENOUS ONCE Outpatient Medications as of 01/31/2024 Medication Sig Ibuprofen 200 mg cap Take by mouth every 6 hours as needed for pain. ferrous sulfate 325 mg (65 mg iron) tablet Take 1 tablet by mouth every other day. acetaminophen 325 mg cap Take 625 mg by mouth as needed for pain. vit/iron fum/folic ac (-FOLIC ACID ORAL) Take 1 tablet by mouth once daily. (Patient not taking: Reported on 01/12/2024) I have interviewed and examined the patient. I have reviewed the medical record and/or the pre-anesthesia evaluation, pertinent labs, and test results. This contains updated information obtained within 48 hours of Surgery/Procedure. SIGNATURE: Ileana Martino MD PATIENT NAME: Adilene Thurman DATE: January 31, 2024 TIME: 4:37 PM CSN: [id number] [facility] BRIEF OP NOTon 01-31-2024 BRIEF OP NOT HNO ID: [id number] Author: BELLE DIMAS MD Service: General Surgery Author Type: Resident Type: Brief Op Note Filed: 01/31/2024 18:52 Note Text: GENERAL SURGERY BRIEF OP NOTE LOG ID: [id number] Surgery/Procedure Date: 01/31/2024 Incision/Procedure Start Time: 5:13 PM Incision Close/Procedure End Time: 6:41 PM Surgeon(s) and Store Custodian(s): Surgeon(s) and Role: * Zander Young MD - Primary * Belle Dimas MD - Resident - Assisting No Additional Staff Procedure(s): Procedure(s): LAPAROSCOPY DIAGNOSTIC Anesthesia: General Findings: Large volume intraperitoneal bile (2.5L prior to saline washing), cystic stump with two hemolocks still attached secured with endoloop; posterior branch of cystic artery coursing along cystic plate hemostatic but two clips were placed. Tubes/Drains: Round ANTONIO drain placed in gallbladder fossa IV Fluids: see anesthesia Estimated Blood Loss: 10 mls Estimated Urine Output: Specimens: Bile fluid ID Type Source Tests Collected by Time Destination 1 : Aspirate/Fine Needle Aspirate Bile Fluid ABSCESS AND WOUND CULTURE WITH GRAM STAIN Zander Young MD 01/31/2024 5:23 PM Implants: * No implants in log * Wound Classification: Class 3 Complications: None Pre-Op/Pre-Procedure Diagnosis: Pre-Op Diagnosis Codes: * Bile leak [K83.9] Post-Op/Post-Procedure Diagnosis: Same SIGNATURE: Belle Dimas MD PATIENT NAME: Adilene Thurman DATE: January 31, 2024 TIME: 6:49 PM PAGER/CONTACT #: [phone] Normal [facility] Bacteria Wnd Culton 01-31-20 Bacteria identified Cx Nom (Wound) CULTURE, WOUND: No growth GRAM STAIN: No organisms seen Few Polymorphonuclear leukocytes Normal [facility] Comment on above: Performed By: #### 6 462-6 ####[facility] LABCLIA [id number] [address] [place] CBC panel Auto (Bld)on 01-30 Erythrocyte distribution width (RBC) [Ratio] 15.2 % High 11.5-15.0 [facility] Comment on above: Order Comment: Speci men Type: BLOOD SPECIMENOrdering Facility: [facility] Address: [address] [place] [address] Performed By: #### 5 8410-2 ####[facility]ORATORYCLIA [id number] [place] [address] [place] Hematocrit (Bld) [Volume fraction] 34.7 % Low 36.0-46.0 [facility] Comment on above: Order Comment: Speci men Type: BLOOD SPECIMENOrdering Facility: [facility] Address: [address] [place] [address] Performed By: #### 5 8410-2 ####[facility]ORATORYCLIA [id number] [place] [id number] [place] Hemoglobin (Bld) [Mass/Vol] 11.0 g/dL Low 11.5-15.5 [facility] Comment on above: Order Comment: Speci men Type: BLOOD SPECIMENOrdering Facility: [facility] Address: [address] [place] [address] Performed By: #### 5 8410-2 ####[facility] LABORATORYCLIA [id number] [place] [address] [place] MCH (RBC) [Entitic mass] 24.7 pg Low 26.0-34.0 [facility] Comment on above: Order Comment: Speci men Type: BLOOD SPECIMENOrdering Facility: [facility] Address: [address] [place] [address] Performed By: #### 5 8410-2 ####[facility] LABORATORYCLIA [id number] [place] [address] [place] MCHC (RBC) [Mass/Vol] 31.7 g/dL Normal 30.5-36.0 [facility] Comment on above: Order Comment: Speci men Type: BLOOD SPECIMENOrdering Facility: [facility] Address: [address] [place] [address] Performed By: #### 5 8410-2 ####[facility] LABORATORYCLIA [id number] [place] [address] [place] MCV (RBC) [Entitic vol] 78.0 fL Low 80.0-100.0 [facility] Comment on above: Order Comment: Speci men Type: BLOOD SPECIMENOrdering Facility: [facility] Address: [address] [place] [address] Performed By: #### 5 8410-2 ####[facility] LABORATORYCLIA [id number] [place] [address] [place] Nucleated RBC (Bld) [#/Vol] 10*3/uL Normal <0.01 [facility] Comment on above: Order Comment: Speci men Type: BLOOD SPECIMENOrdering Facility: [facility] Address: [address] [place] [address] Performed By: #### 5 8410-2 ####[facility] LABORATORYCLIA [id number] [place] [address] [place] Platelet mean volume (Bld) [Entitic vol] 9.3 fL Normal 9.0-12.7 [facility] Comment on above: Order Comment: Speci men Type: BLOOD SPECIMENOrdering Facility: [facility] Address: [address] [place] [address] Performed By: #### 5 8410-2 ####[facility] LABORATORYCLIA [id number] [place] [address] [place] Platelets (Bld) [#/Vol] 380 10*3/uL Normal 150-400 [facility] Comment on above: Order Comment: Speci men Type: BLOOD SPECIMENOrdering Facility: [facility] Address: [address] [place] [address] Performed By: #### 5 8410-2 ####[facility] LABORATORYCLIA [id number] [place] [address] [place] RBC (Bld) [#/Vol] 4.45 10*6/uL Normal 3.90-5.20 [facility] Comment on above: Order Comment: Speci men Type: BLOOD SPECIMENOrdering Facility: [facility] Address: [address] [place] [address] Performed By: #### 5 8410-2 ####[facility] LABORATORYCLIA [id number] [place] [address] [place] WBC (Bld) [#/Vol] 9.73 10*3/uL Normal 3.70-11.00 [facility] Comment on above: Order Comment: Speci men Type: BLOOD SPECIMENOrdering Facility: [facility] Address: [address] [place] [address] Performed By: #### 5 8410-2 ####C[facility] LABORATORYCLIA [id number] [place] [id number] [facility] CONSULT PROGon 01-31-2024 CONSULT PROG HNO ID: [id number] Author: JOSSUE SHERIFF PA-C Service: Gastroenterology Author Type: Physician Store Custodian Type: Consult Progress Note Filed: 01/31/2024 14:37 Note Text: GI progress note: January 31, 2024 Patient: Adilene Thurman Medical Record: [id number] GI following for ascites, recent GS pancreatitis, s/p lap pk. Chart reviewed. ERCP completed yesterday s/f biliary papillary stenosis, benign. The entire main bile duct was mildly dilated, acquired. A bile leak was found. The patient has had a cholecystectomy. Choledocholithiasis was found. Complete removal was accomplished by biliary sphincterotomy and balloon extraction. One plastic stent was placed into the common bile duct. Per general surgery, plan for diagnostic laparoscopy for washout and drain placement today Currently, HDS, afebrile, tachycardic (120s), 96% on RA. Labs today s/f no leukocytosis, Hgb stable 11.1>11.0, plts 380. T. Bili 2.2>1.9. Alk Phos stable 296>274. ALT/AST wnl. Lactate 0.8. Patient endorses ongoing abdominal pain, denies worsening overnight. Denies nausea/vomiting. Denies fevers/chills. No BM over past 24 hrs. O: Gen: alert, sitting up in bedside chair, in mild acute distress CVS: tachycardic, regular rhythm RS: respirations even and unlabored ABD: distended, +diffuse tenderness to palpation EXT: JONES NEURO: AANDO x 3 Recent Labs 01/31/24 0732 01/30/24 0632 01/29/24 0045 01/28/24 2152 WBC 9.73 9.72 -- 10.45 HB 11.0* 11.1* -- 10.9* HCT 34.7* 35.7* -- 36.2 PLT 380 406* -- 454* INR -- 1.1 1.4* -- NA 137 138 -- 136 K 4.5 4.4 -- 4.2 CHLOR 99 100 -- 101 CO2 26 22 -- 23 BUN 12 13 -- 14 CREAT 0.82 0.93 -- 0.75 GLUC 112* 105* -- 81 CA 8.9 9.2 -- 9.1 MG -- 2.0 -- -- Recent Labs 01/31/24 0732 01/30/24 0632 01/28/24 2152 TPROT 6.2* 6.5 7.3 ALB 3.3* 3.5* 4.0 ALT 36 55* 87* AST 12* 22 23 ALKPHOS 274* 296* 308* TBILI 1.9* 2.2* 1.7* LIPASE -- -- 30 LACT -- -- 0.8 Diagnostics Reviewed: Most recent labs and imaging results. Assessment/Recommendatio ns: Ms. Thurman is a 18 year old female with PMH BMI (41), LILY, PTSD, DARLINE, gallstone pancreatitis during s/p interval cholecystectomy 01/21, and 01/06/2024- , now 3 weeks who presented to [facility]SH ED 01/27 for post op abdominal pain, transferred to [facility] for further management. GI consulted for evaluation of ascites, recent GS pancreatitis, s/p lap pk. #Intractable generalized abdominal pain (POA: Yes) #Ascites #Elevated liver enzymes #S/p lap pk 01/21 #s/p 01/05 Admission labs: No leukocytosis, Hgb: 11.1, plt: 406; INR: 1.1; BUN/creat: 13/0.93; Tbili: 1.7->2.2, AP: 308->296, ALT: 87->55, AST: 23->22, Lipase: 90 -CT A/P (01/28/24): Liver: No mass. Biliary: No bile duct dilation. Status post cholecystectomy. Pancreas: No mass or duct dilation. GI tract: No dilation or wall thickening. The appendix is partially visualized and appears normal in caliber. No pneumatosis or intra-abdominal free air. Mesentery/Peritoneum: Moderate to large ascites in the abdomen/pelvis. There is subtle nodularity in the fat adjacent to the proximal descending colon likely due to edema. Recommend follow-up to exclude any likelihood of omental caking (example images 74-64/series 6). -HIDA (01/30/24) Scintigraphic evidence of biliary leak, relatively large volume. -ERCP (01/30/24) s/f biliary papillary stenosis, benign. The entire main bile duct was mildly dilated, acquired. A bile leak was found. The patient has had a cholecystectomy. Choledocholithiasis was found. Complete removal was accomplished by biliary sphincterotomy and balloon extraction. One plastic stent was placed into the common bile duct. 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 Thurman is a 18 year old female with PMHx elevated BMI, gallstone pancreatitis during s/p interval cholecystectomy 01/21 who presents with continued abdominal pain, nausea and PO intolerance with CT scan concerning for intrabdominal fluid collection. Now s/p HIDA scan showing bile leak and ERCP with sphincterotomy and stent placement on 01/29. - will plan for diagnostic laparoscopy for washout and drain placement today - will obtain consent - NPO for now Discussed with Dr. Raf Penny MD PGY5 Patient Active Hospital Problem List: Intractable generalized abdominal pain (01/29/2024) History of posttraumatic stress disorder (PTSD) (07/20/2023) Anxiety (07/20/2023) Postoperative abdominal pain (01/29/2024) Other ascites (01/29/2024) SUBJECTIVE: No acute events overnight. Underwent ERCP yesterday Pain improved. No nausea OBJECTIVE: BP 125/73 Pulse 95 Temp 36.8 ?C (98.2 ?F) (Oral) Resp 16 Ht 165.1 cm (5' 5) Wt 112.5 kg (248 lb) LMP 04/06/2023 (Exact Date) SpO2 96% BMI 41.27 kg/m? Body mass index is 41.27 kg/m?. GENERAL: Alert and oriented, no acute distress, cooperative. LUNGS: Non labored breathing ABDOMEN: soft, mildly tender diffusely, non distended. WOUND: steristrips in place clean, dry and intact Labs: CBC, Coags, BMP, Mg, Phos Recent Labs 01/31/24 0732 01/30/24 0632 01/29/24 0045 01/28/24 2152 WBC 9.73 9.72 -- 10.45 HB 11.0* 11.1* -- 10.9* HCT 34.7* 35.7* -- 36.2 PLT 380 406* -- 454* INR -- 1.1 1.4* -- NA -- 138 -- 136 K -- 4.4 -- 4.2 CHLOR -- 100 -- 101 CO2 -- 22 -- 23 BUN -- 13 -- 14 CREAT -- 0.93 -- 0.75 GLUC -- 105* -- 81 CA -- 9.2 -- 9.1 MG -- 2.0 -- -- Liver Function, Amylase, AND Lipase Recent Labs 01/30/24 0632 01/28/24 2152 TPROT 6.5 7.3 ALB 3.5* 4.0 ALT 55* 87* AST 22 23 ALKPHOS 296* 308* TBILI 2.2* 1.7* LIPASE -- 30 I/O past 24h: Intake/Output Summary (Last 24 hours) at 01/31/2024 0833 Last data filed at 01/31/2024 0350 Gross per 24 hour Intake 2358 ml Output 400 ml Net 1958 ml LDA: Lines, Drains, and Airways Line Duration Peripheral 01/29/24 2100 [facility] Short Right Forearm 20 Gauge 1 day SURGERY/PROCEDURE: Procedure(s) and Anesthesia Type: * ABDOMINAL PARACENTESIS W/ IMAGING GUIDANCE - Local Normal [facility] Comprehensive metabolic 2000 panelon 01-31-2024 Albumin [Mass/Vol] 3.3 g/dL Low 3.9-4.9 [facility] Comment on above: Order Comment: Speci men Type: BLOOD SPECIMENOrdering Facility: [facility] Address: [address] [place] [address] Performed By: #### 2 4323-8 ####[facility] LABORATORYCLIA [id number] [place] [address] [place] ALP [Catalytic activity/Vol] 274 U/L High 34-123 [facility] Comment on above: Order Comment: Speci men Type: BLOOD SPECIMENOrdering Facility: [facility] Address: [address] [place] [address] Performed By: #### 2 4323-8 ####[facility] LABORATORYCLIA [id number] [address] [place] ALT [Catalytic activity/Vol] 36 U/L Normal 7-38 [facility] Comment on above: Order Comment: Speci men Type: BLOOD SPECIMENOrdering Facility: [facility] Address: [address] [place] [address] Performed By: #### 2 4323-8 ####[facility] LABORATORYCLIA [id number] [place] [id number] [place] Anion gap [Moles/Vol] 12 mmol/L Normal 8-15 [facility] Comment on above: Order Comment: Speci men Type: BLOOD SPECIMENOrdering Facility: [facility] Address: [address] [place] [address] Performed By: #### 2 4323-8 ####[facility] LABORATORYCLIA [id number] [place] [id number] [place] AST [Catalytic activity/Vol] 12 U/L Low 13-35 [facility] Comment on above: Order Comment: Speci men Type: BLOOD SPECIMENOrdering Facility: [facility] Address: [address] [place] [address] Performed By: #### 2 4323-8 ####[facility] LABORATORYCLIA [id number] [place] [address] [place] Bilirubin [Mass/Vol] 1.9 mg/dL High 0.2-1.3 [facility] Comment on above: Order Comment: Speci men Type: BLOOD SPECIMENOrdering Facility: [facility] Address: [address] [place] [address] Performed By: #### 2 4323-8 ####[facility] LABORATORYCLIA [id number] [place] [id number] [place] Calcium [Mass/Vol] 8.9 mg/dL Normal 8.5-10.2 [facility] Comment on above: Order Comment: Speci men Type: BLOOD SPECIMENOrdering Facility: [facility] Address: [address] [place] [address] Performed By: #### 2 4323-8 ####[facility] LABORATORYCLIA [id number] [place] [id number] [place] Chloride [Moles/Vol] 99 mmol/L Normal 98-107 [facility] Comment on above: Order Comment: Speci men Type: BLOOD SPECIMENOrdering Facility: [facility] Address: [address] [place] [address] Performed By: #### 2 4323-8 ####[facility] LABORATORYCLIA [id number] [place] [id number] [place] CO2 [Moles/Vol] 26 mmol/L Normal 22-30 [facility] Comment on above: Order Comment: Speci men Type: BLOOD SPECIMENOrdering Facility: [facility] Address: [address] [place] [address] Performed By: #### 2 4323-8 ####[facility] LABORATORYCLIA [id number] [place] [id number] [place] Creatinine [Mass/Vol] 0.82 mg/dL Normal 0.58-0.96 [facility] Comment on above: Order Comment: Speci men Type: BLOOD SPECIMENOrdering Facility: [facility] Address: [address] [place] [address] Performed By: #### 2 4323-8 ####[facility] LABORATORYCLIA [id number] [address] [place] Creatinine and Glomerular filtration rate.predicted panel (S/P/Bld) 105 mL/min/1.73m??? Normal >=60 [facility] Comment on above: Order Comment: Speci men Type: BLOOD SPECIMENOrdering Facility: [facility] Address: [address] [place] [address] Result Comment: Idalmis mated Glomerular Filtration Rate (eGFR) is calculated using the 2020 CKD-EPI creatinine equation. This equation utilizes serum creatinine, sex, and age as parameters. The creatinine assay has traceable calibration to isotope dilution-mass spectrometry. Refer to KDIGO guidelines for clinical interpretation. In patients with unstable renal function, e.g. those with acute kidney injury, the eGFR may not accurately reflect actual GFR. Performed By: #### 2 4323-8 ####[facility] LABORATORYCLIA [id number] [place] [id number] [place] Glucose [Mass/Vol] 112 mg/dL High 74-99 [facility] Comment on above: Order Comment: Speci men Type: BLOOD SPECIMENOrdering Facility: [facility] Address: [address] [place] [address] Result Comment: The [place] Diabetes Association (ADA) provides guidance for cutoff values for fasting glucose and random glucose. The ADA defines fasting as no caloric intake for at least 8 hours. Fasting plasma glucose results between 100 to 125 mg/dL indicate increased risk for diabetes (prediabetes). Fasting plasma glucose results greater than or equal to 126 mg/dL meet the criteria for diagnosis of diabetes. In the absence of unequivocal hyperglycemia, results should be confirmed by repeat testing. In a patient with classic symptoms of hyperglycemia or hyperglycemic crisis, random plasma glucose results greater than or equal to 200 mg/dL meet the criteria for diagnosis of diabetes. Reference: Standards of Medical Care in Diabetes 2016, [place] [employer] Association. Diabetes Care. 2016.39(Suppl 1). Performed By: #### 2 4323-8 ####[facility] LABORATORYCLIA [id number] [place] [address] [place] Potassium [Moles/Vol] 4.5 mmol/L Normal 3.7-5.1 [facility] Comment on above: Order Comment: Speci men Type: BLOOD SPECIMENOrdering Facility: [facility] Address: [address] [place] [address] Performed By: #### 2 4323-8 ####[facility] LABORATORYCLIA [id number] [place] [address] [place] Protein [Mass/Vol] 6.2 g/dL Low 6.3-8.0 [facility] Comment on above: Order Comment: Speci men Type: BLOOD SPECIMENOrdering Facility: [facility] Address: [address] [place] [address] Performed By: #### 2 4323-8 ####[facility] LABORATORYCLIA [id number] [place] [address] [place] Sodium [Moles/Vol] 137 mmol/L Normal 136-144 [facility] Comment on above: Order Comment: Speci men Type: BLOOD SPECIMENOrdering Facility: [facility] Address: [address] [place] [address] Performed By: #### 2 4323-8 ####[facility] LABORATORYCLIA [id number] [address] [place] [facility] Urea nitrogen [Mass/Vol] 12 mg/dL Normal 7- [facility] Comment on above: Order Comment: Speci men Type: BLOOD SPECIMENOrdering Facility: [facility] Address: [address] [place] [address] Performed By: #### 2 4323-8 ####[facility] LABORATORYCLIA [id number] [address] NURSING PROGon 01-31-2024 NURSING PROG HNO ID: [id number] Author: LIBORIO AMEZQUITA RN Service: ? Author Type: Registered Nurse Type: Nursing Progress Note Filed: 02/01/2024 01:16 Note Text: Transfer Note: PATIENT NAME: Adilene Thurman Patient Location: [place] [address]/[facility] Room: [place] [address] Patient transferred into room T 02 in stable condition. Actions taken: Vitals were obtained. Skin assessed. Patient is expressing no pain. [facility] NURSING PROG HNO ID: [id number] Author: GONZALO GRIJALVA RN Service: Nursing Author Type: Registered Nurse Type: Nursing Progress Note Filed: 01/31/2024 16:13 Note Text: PATIENT EDUCATION TOPIC: PROCEDURE / SURGERY: Pre-op Teaching: Surgery PATIENT NAME: Adilene Thurman PATIENT LOCATION: [place] READINESS TO LEARN COGNITIVE ABILITY: Alert and oriented MOTIVATION TO LEARN: Eager FAMILY SUPPORT: Unable to assess - Family not present INSTRUCTION PROVIDED TO: Patient PATIENT LEARNS BEST BY: Individual Instruction Written Instruction - Hand-outs Verbal Instruction FACTORS AFFECTING LEARNING: None PHYSICAL LIMITATIONS AFFECTING LEARNING: None LEARNING RESPONSE DIAGNOSIS: ADULT: See HANDP PATIENT/FAMILY RESPONSE: Information received as demonstrated by interest and questions METHOD OF INSTRUCTION: Individual instruction Written instruction/Handouts Verbal instruction FOLLOW-UP PLAN: Patient instructed to call with any further issues INSTRUCTIONAL AIDS USED: NA SUPPLEMENTAL MATERIAL PROVIDED TO PATIENT: None REFERRAL (RECOMMENDATION): None Electronically Signed By: Gonzalo Grijalva [facility] OPERATIVE NOon 01-31-2024 OPERATIVE NO HNO ID: [id number] Author: ZANDER YONUG MD Service: General Surgery Author Type: Physician Type: Operative Report Filed: 02/01/2024 08:57 Note Text: LOG ID: [id number] Surgery/Procedure Date: 01/31/2024 Incision/Procedure Start Time: 5:13 PM Incision Close/Procedure End Time: 6:41 PM Surgeon(s)/Proceduralist (s) and Store Custodian(s): Surgeon(s) and Role: * Zander Young MD - Primary * Belle Dimas MD - Resident - Assisting No Additional Staff Procedure(s): Diagnostic laparoscopy Indication: Adilene Thurman is a 18 year old woman s/p laparoscopic cholecystectomy on 01/21 complicated by a retained stone which caused biliary obstruction and disruption of the cystic stump closure resulting in a bile leak with bile peritonitis. She was taken to the endoscopy suite on 01/29 where she underwent an ERCP with sphincterotomy and plastic stent placement (CBD too narrow to accommodate a covered stent to exclude the cystic duct). Given the diffuse distribution of the bile on CT imaging, we elected to proceed with diagnostic laparoscopy with washout and drain placement. Anesthesia: General Procedure Details: A safety huddle was performed in the preoperative area with the patient, anesthesia, OR team, and myself present. The patient's name, date of , and operation were confirmed as well as SCD use and the administration of IV antibiotics and subcutaneous heparin prior to incision. The patient was then taken to the operating room and placed in supine position with the left arm tucked and right arm out. General endotracheal anesthesia was achieved. The patient was prepped with chloraprep and draped in a sterile fashion. An audible time out was performed prior to incision. A stab incision in the LUQ at Perez's point was made. An optical entry was performed utilizing a 5 mm, 0 degree scope and 5 mm optical trocar. Each layer of the abdominal wall was identified and once we pierced the peritoneum, the abdomen was insufflated to 15 mmHg and a 5 mm, 30 degree scope was introduced into the abdomen. The LUQ was inspected and there was no evidence of injury from our entry. We noted bile present in the LUQ as well as the RUQ and pelvis. Next, a right mid abdomen 5 mm trocar was placed under direct visualization for use as a camera port. With the camera moved to the right mid abdomen, the patient was placed in reverse Trendelenburg and rotated slightly to the patient's left. Three 5 mm subcostal ports were placed beneath the right costal margins, utilizing the patient's prior lap sites. These were each placed under direction vision after infiltrating the skin and muscle with 0.5% bupivacaine local anaesthetic. We began by suctioning the bile - 2.5L of bile was suctioned before any irrigation was used. There was diffuse inflammation of the parietal peritoneum consistent with bile peritonitis. Next, I began to explore the RUQ. I gently elevated the liver and with blunt dissection took down the inflammatory adhesions between the omentum and duodenum to the cystic plate. I was able to mobilize everything down to the level of the cystic duct. I was able to identify the cystic duct and the 2 hemoclips on the cystic duct. These appear to be in adequate position. I did not identify any bile leaking from the cystic duct. Given that there appeared to be a bile leak from the cystic duct on the patient's ERCP, I did place an Endoloop just below the lowest clip on the cystic duct to try and ensure that this was completely closed. I then inspected the gallbladder fossa and found no evidence of bile leak or duct of Luschka. There was what appeared to be a posterior cystic branch of the artery running on the lateral aspect of the cystic plate that had been divided with electrocautery. The 2 cm proximal to the site of division appeared to be clotted off. Out of an abundance of caution, a window was made around this and two 5 mm clips were placed on the vessel. I had my partner Dr. Wu coming to the operating room to evaluate the gallbladder fossa with me. He did not see any source of active bile leak. Would suggest that the ERCP with sphincterotomy and stent had helped direct the flow into the intestines and limit the bile leak. Satisfied, I then set about suctioning and irrigating the remainder of the abdomen. In order to better facilitate access and exposure in the pelvis, I did place an additional 5 mm trocar in the left mid abdomen under direct visualization. Bile was present in all four quadrants. This was systematically suctioned, and then irrigated, and suctioned until clear. The distal ileum was exposed to bile and appeared quite inflamed while the more proximal bowel was relatively well protected by the omentum and unaffected. Used over 3 L of saline irrigation during the course of her washout. Once satisfied with our washout, a 19 [place] round drain was introduced into the abdomen, exiting the m (more content not included)... Normal [facility] TYPE + SCREENon 01-31-2024 ABO O [facility] Comment on above: Order Comment: Speci men Type: BLOOD SPECIMENOrdering Facility: [facility] Address: [address] [place] [address] Performed By: #### T SCR ####[facility] BLOOD BANKCLIA [id number] [place] [id number] [facility] HISTORICAL AB SCR STATUS Negative [facility] Comment on above: Order Comment: Speci men Type: BLOOD SPECIMENOrdering Facility: [facility] Address: [address] [place] [address] Performed By: #### T SCR ####[facility] BLOOD BANKCLIA [id number] [address] Rh Nom (Bld) Positive [facility] Comment on above: Order Comment: Speci men Type: BLOOD SPECIMENOrdering Facility: [facility] Address: [address] [place] [address] Performed By: #### T SCR ####[facility]CLIA [id number] [place] [id number] [place] TYPE AND SCREEN EXPIRATION 02/03/2024 23:59 [facility] Comment on above: Order Comment: Speci men Type: BLOOD SPECIMENOrdering Facility: [facility] Address: [address] [place] [address] Performed By: #### T SCR ####[facility] BANKCLIA [id number] [place] [id number] [place] XR CHEST 1V FRONTAL PORTon 0 01-31-2024 XR CHEST 1V FRONTAL PORT * * *Final Report* * * DATE OF EXAM: Jan 31 2024 8:42AM FVX [id number] - XR CHEST 1V FRONTAL PORT / PROCEDURE REASON: Shortness of breath * * * * Physician Interpretation * * * * EXAMINATION: CHEST RADIOGRAPH (PORTABLE SINGLE VIEW AP) Exam Date/Time: 01/31/2024 8:42 AM CLINICAL HISTORY: Shortness of breath MQ: XCPR_5 Comparison: None RESULT: Lines, tubes, and devices: None Lungs and pleura: No pneumothorax or pleural effusions. Mild patchy opacity in the left lung base. Somewhat nodular opacity in the left lung base. Cardiomediastinal silhouette: Stable cardiomediastinal silhouette. Other: . IMPRESSION: Mild patchy opacity in the left lung base, likely atelectasis although infiltrate not entirely excluded Somewhat nodular opacity in the left lung base is likely related to aforementioned process but recommend follow-up to document resolution. Incidental Finding: Follow-up Acuity: Incidental Finding: Indeterminant appearing incidentally detected nodular lung density on CXR Recommendation: XR CHEST 2V FRONTAL/LAT Time Frame: 4-6 weeks COMMUNICATION:? Results will be communicated with the ordering provider via [facility] staff message by [employer] within 2 business days of report finalization. Channel Marketing Specialist: NEGRO Transcribe Date/Time: Jan 31 2024 8:56A Dictated by : TAHIR ARRIETA MD This examination was interpreted and the report reviewed and electronically signed by: TAHIR ARRIETA MD on Jan 31 2024 8:58AM EST [id number] ACTIONABLE Invalid Interpretation Code [facility]30-2024 ALLIED [facility] HNO ID: [id number] Author: SAGAR LENZ RT(R) Service: ? Author Type: Technologist Type: Allied Health Filed: 01/30/2024 12:59 Note Text: RADIOLOGY SERVICE PROGRESS NOTE SERVICE DATE: 01/30/2024 SERVICE TIME: 12:59 PM PATIENT IDENTITY VERIFICATION COMPLETED USING TWO (2) STANDARD IDENTIFIERS: Name and Date of confirmed by patient verbally and Name and Date of confirmed by identification band FALL SCREENING: Has the patient had 2 falls in the last year or 1 fall with injury or currently using an Ambulatory Assistive Device (Walker, Cane, Wheelchair, Crutches, etc.)? Inpatient: Screened on floor PATIENT GENDER DATA: .female : No ALLERGIES: Reviewed and unchanged MEDICATIONS REVIEWED: No PATIENT RELEVANT IMPLANT DATA REVIEWED: Not Applicable PATIENT PRESENTS WITH AN IMPLANTABLE OR ATTACHED STEEL ROD BUSTER: No CREATININE: Creatinine Date Value Ref Range Status 01/30/2024 0.93 0.58 - 0.96 mg/dL Final 01/28/2024 0.75 0.58 - 0.96 mg/dL Final 12/07/2023 0.49 (L) 0.58 - 0.96 mg/dL Final Estimated Glomerular Filtration Rate Date Value Ref Range Status 01/30/2024 90 >=60 mL/min/1.73m? Final Comment: Estimated Glomerular Filtration Rate (eGFR) is calculated using the 2020 CKD-EPI creatinine equation. This equation utilizes serum creatinine, sex, and age as parameters. The creatinine assay has traceable calibration to isotope dilution-mass spectrometry. Refer to KDIGO guidelines for clinical interpretation. In patients with unstable renal function, e.g. those with acute kidney injury, the eGFR may not accurately reflect actual GFR. P.O.C.T. RESULTS: N/A January 30, [address] PERFORMED: No IV SITE: Inpatient - refer to LDA documentation POST EXAM PIV STATUS: Inpatient see LDA documentation PROCEDURE TYPE: NM INJECT: HIDA scan (bile leak). 5.7 mCi Tc99m CHOLETEC. No other medications given.. ADMINISTRATION TIME: 1248 PATIENT DISCHARGED TO: Patient taken to IP transport area for return to RNF/ICU/ED. A Diagnostic radioactive procedure has taken place, with no further precautions necessary other than routine body substance precautions. More information regarding radiation safety can be found using this link: [email or web address] [email or web address]%[email or web address] [email or web address] df SIGNATURE: RT Radha(R) PATIENT NAME: Adilene Thurman DATE: January 30, 2024 TIME: 12:59 PM PAGER/CONTACT #: [facility] ALLIED [facility]ALTH HNO ID: [id number] Author: ALLISON VALDIVIA RDMS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 Simmons DO CC: No Primary Care Physician Signed Normal [facility] Operative Reporton 4 Operative Report [facility] Medical Records Department [address] [place] [address] Operative Report 01/07/24 1117 MR#: [id number] Acct: [id number] Name: ADILENE THURMAN Rep #: [id number] : 2005 18 From: Robbi Simmons DO PCP: Care Physician,No Primary Status:ADM IN Location: [address] Problems Associated Problem List Diagnoses (1) Nexplanon insertion: Report of Operation Date of Procedure: 01/07/24 Pre-Operative Diagnosis: Request for Nexplanon Post-Operative Diagnosis: As above Surgery/Procedure Performed:: Nexplanon insertion Description of Surgical Findings:: Scar noted from prior Nexplanon insertion Surgeon: Robbi Simmons Type of Anesthesia: Local Special Medications: Nexplanon Specimen's removed: None Drains: None Estimated Blood Loss (mL): 0 Fluids Replaced: N/A Description of Procedure: Procedure area was prepped and draped in usual sterile fashion. 3 cc of 1% lidocaine was injected for anesthesia at prior insertion site. Nexplanon trocar was inserted subcutaneously and the Nexplanon capsule delivered subcutaneously. The trocar was removed from the insertion site. The Nexplanon capsule was palpated easily by provider and the patient to assure satisfactory placement. Steri strips and a dressing were placed. The patient tolerated the procedure well. Grafts/Implants Used: Nexplanon Complications None 01/07/24 1121 Cosigner Signature (if applicable): CC: Dr. Robbi Simmons, DO; No Primary Care Physician Signed Normal [facility] Operative Reporton 4 Operative Report [facility] Medical Records Department [address] [place] [address] Operative Report 01/06/24 0254 MR#: [id number] Acct: [id number] Name: ADILENE THURMAN Rep #: [id number] : 2005 18 From: Robbi Simmons DO PCP: Care Physician,No Primary Status:ADM IN [facility] Problems Associated Problem List Diagnoses (1) Anxiety: (2) Chlamydia infection affecting : (3) Gallstone pancreatitis: (4) Late care affecting : (5) Anemia affecting , antepartum: (6) Obesity affecting : (7) Encounter for induction of labor: (8) 39 weeks gestation of : Report of Operation Date of Procedure: 01/06/24 Pre-Operative Diagnosis: 39 week gestation, obesity in , planned induction of labor, request for a primary section Post-Operative Diagnosis: As above, CPD Surgery/Procedure Performed:: PLTCS via pfannenstiel incision Description of Surgical Findings:: VFI in OP position with loose nuchal cord x 1. Apgars 9, 9. Clear fluid. Normal appearing placenta. Normal appearing uterus and bilateral adnexa. Narrow pelvis and infant with caput present. Surgeon: Robbi Simmons weight control engineer: Merrill CLAIRE Type of Anesthesia: Epidural Special Medications: None Specimen's removed: Placenta Drains: Cooley Estimated Blood Loss (mL): 800 Fluids Replaced: 1500 mL Description of Procedure: Indications: The patient presented for scheduled IOL at 39 weeks given obesity. She received 3 doses of Cytotec. An intracervical cooley catheter was placed after the cytotec. At time of rupture cervix was at least 3 cm, but difficult exam given patient intolerance with exam and pain. Pitocin was started. She progressed to 4 cm. She was 4 cm for about 10 hours. She was on Pitocin for about 15 hours. She was ruptured for over 12 hours. She requested a primary section given exhaustion. Procedure: The patient was taken to the operating room where epidural anesthesia was found be adequate. She was prepped and draped in the dorsal supine position with leftward tilt. A Pfannenstiel skin incision was made with a scalpel and carried down to the underlying layer of fascia. The fascia was incised in midline. The fascial incision was extended laterally using Olmedo scissors. The fascia was dissected off the rectus muscles both cephalad and caudad using sharp dissection. The rectus muscles were in the midline. The peritoneum was entered bluntly with good visualization of the bladder. The peritoneal incision was extended with traction laterally. A bladder blade was inserted. A low transverse incision was made on the uterus with a scalpel. The uterine incision was extended with cephalad and caudad traction. Clear fluid was present upon entry into the uterus. A vigorous viable female infant was delivered in cephalic and OP presentation with caput present, and a loose nuchal cord x 1 that was reduced. The pelvis was felt to be narrow at time of delivery. The was delivered without traction, force, or delay and the head was flexed during delivery. The cord was clamped and cut after a slight delay. The placenta was removed with manual extraction. The uterus was cleared of all clot debris. The uterus was exteriorized. The hysterotomy was closed with 1-0 Vicryl in a running locked fashion. Several additional [id number] sutures were placed for hemostasis. The uterus was placed back into the abdomen. Bro was placed over the hysterotomy. Hemostasis was noted. The peritoneum was closed with 3-0 Vicryl. The subfascial space was noted to be hemostatic. The fascia was closed with STRATAFIX in a running fashion. The subcutaneous space was irrigated and made hemostatic with the Bovie cautery. The subcutaneous space was reapproximated with 3-0 Vicryl. The skin was closed with 4 Monocryl in a subcuticular fashion. A silver dressing was placed. Instrument, sponge, sharp counts were correct. The patient was taken to the recovery in stable condition. Store Custodian Merrill CLAIRE was present for draping patient, delivery of , and closure. Grafts/Implants Used: None Procedure Start Time: 01:58 Procedure Stop Time: 02:45 Complications None Admit VTE Documentation VTE Present on Admission: No VTE Mechan Device Prophylaxis: SCD's 01/06/24 0304 Cosigner Signature (if applicable): CC: Dr. Robbi Wiswell, DO; No Primary Care Physician Signed Normal [facility] CBC W/Diff, Automatedon 06-2 Absolute Lymph 2.50 X10 3/uL Normal 0.83-4.51 [facility] Comment on above: Performed By: #### L 100.0100, BTS #### [facility] [address] [place], [address] Absolute Neut 10.9 X10 3/uL High 2.0-7.7 [facility] Comment on above: Performed By: #### L 100.0100, BTS #### [facility] [address] [place], [address] Basophils/100 WBC (Bld) 0.2 % Normal 0-1 [facility] Comment on above: Performed By: #### L 100.0100, BTS #### [facility] [address] [place], [address] Eosinophils/100 WBC (Bld) 0.5 % Normal 0-5 [facility] Comment on above: Performed By: #### L 100.0100, BTS #### [facility] [address] [place], [address] Erythrocyte distribution width (RBC) [Ratio] 16.5 % High 11.6-14.6 [facility] Comment on above: Performed By: #### L 100.0100, BTS #### [facility] [address] [place], [address] Hematocrit (Bld) [Volume fraction] 33.4 % Low 37-47 [facility] Comment on above: Performed By: #### L 100.0100, BTS #### [facility] [address] [place], [address] Hemoglobin (Bld) [Mass/Vol] 10.5 g/dL Low 12.0-15.0 [facility] Comment on above: Performed By: #### L 100.0100, BTS #### [facility] [address] [place], [address] IG% 0.400 Normal 0.0-0.9 [facility] Comment on above: Result Comment: IG% - Immature Granulocytes (promyelocytes, myelocytes and metamyelocytes) > 1% indicates that a LEFT SHIFT is Present. Performed By: #### L 100.0100, BTS #### [facility] [address] [place], [address] Lymphocytes/100 WBC (Bld) 17.8 % Low 19-41 [facility] Comment on above: Performed By: #### L 100.0100, BTS #### [facility] [address] [place], [address] MCH (RBC) [Entitic mass] 24.8 pg Low 27.0-32.0 [facility] Comment on above: Performed By: #### L 100.0100, BTS #### [facility] [address] [place], [address] MCHC (RBC) [Mass/Vol] 31.4 g/dL Low 32-36 [facility] Comment on above: Performed By: #### L 100.0100, BTS #### [facility] [address] [place], [address] MCV (RBC) [Entitic vol] 78.8 fL Low 81-99 [facility] Comment on above: Performed By: #### L 100.0100, BTS #### [facility] [address] [place], [address] Monocytes/100 WBC (Bld) 3.4 % Normal 0-10 [facility] Comment on above: Performed By: #### L 100.0100, BTS #### [facility] [address] [place], [address] Neutrophils/100 WBC (Bld) 77.7 % High 47-70 [facility] Comment on above: Performed By: #### L 100.0100, BTS #### [facility] [address] [place], [address] Nucleated RBC (Bld) [#/Vol] 0 10*3/uL Normal 0-5 [facility] Comment on above: Performed By: #### L 100.0100, BTS #### [facility] [address] [place], [address] Platelet mean volume (Bld) [Entitic vol] 9.4 fL Normal 6.2-12.0 [facility] Comment on above: Performed By: #### L 100.0100, BTS #### [facility] [address] [place], [address] Platelets (Bld) [#/Vol] 287 10*3/uL Normal 150-450 [facility] Comment on above: Performed By: #### L 100.0100, BTS #### [facility] [address] [place], [address] RBC (Bld) [#/Vol] 4.24 10*6/uL Normal 4.2-5.4 [facility] Comment on above: Performed By: #### L 100.0100, BTS #### [facility] [address] [place], [address] RDW SD 45.8 fl High 35.1-43.9 [facility] Comment on above: Performed By: #### L 100.0100, BTS #### [facility] [address] [place], [address] WBC (Bld) [#/Vol] 14.1 10*3/uL High 4.4-11.0 [facility] Comment on above: Performed By: #### L 100.0100, BTS #### [facility] [address] [place], [address] H AND P Exam - OB/GYNon 12-09 H&P Exam - METAL FABRICATION SUPERVISOR [facility] Medical Records Department [address] [place] [address] H P Exam - METAL FABRICATION SUPERVISOR 01/04/24 1907 MR#: [id number] Acct: [id number] Name: ADILENE THURMAN KENYATTA Rep #: [id number] : 2005 18 From: Maria Isabel Rodriguez CNM PCP: Care Physician,No Primary Status:ADM IN [facility] - General General Date of Admission: 01/04/24 HPI Narrative ADILENE THURMAN, is a 18 F at 39 weeks gestation who presents for scheduled induction of labor for obesity. Pregravid BMI 45. complicated by late care, anemia, positive chlamydia, anxiety, and acute gallstone pancreatitis. Maternal Data Information DELANEY Calculator Estimated Delivery Date Method Current WG Current Estimate 01/11/24 Manual 39w 0d Gestational age: 39.0 weeks gestation PFSH PFS Home Medications ???Medication ???Instructions ???Recorded ???Last Taken ???Type vit no.95-ferrous 1 tab PO DAILY 11/16/23 11/16/23 History fumarate 28 mg-folic acid 800 mcg tablet () Allergy/AdvReac Type Severity Reaction Status Date / Time No Known Allergies Allergy Verified 09/21/23 20:19 ROS Eyes Eyes: Denies blurry vision, change in vision or spots in vision ENT HEENT: Denies dizziness or headache(s) Cardiovascular Cardiovascular: Denies abdominal pain, chest pain or dyspnea Respiratory/Chest Respiratory/Chest: Denies cough, dyspnea, shortness of breath at rest or shortness of breath with exertion Gastrointestinal Gastrointestinal: Denies abdominal pain, diarrhea or vomiting Genitourinary Genitourinary: Denies change in urinary stream, difficulty urinating or dysuria Musculoskeletal Musculoskeletal: Reports none Integumentary Integumentary: Denies rash Neurologic Neurologic: Denies dizziness, headache(s), memory loss or weakness Psychiatric Psychiatric: Reports none Physical Exam Const alert, oriented x3 and no apparent distress General Appearance: cooperative Orientation / Consciousness: awake Exam Limitations: no limitations HEENT normocephalic Head and Scalp: normal to inspection Eyes General Eye: normal appearance of both eyes Neck full ROM and no lymphadenopathy Lymph Lymphatic: no lymphadenopathy noted Chest inspection of chest normal Resp normal respiratory effort, normal air movement and clear to auscultation bilaterally Effort and Inspection: able to speak in complete sentences and symmetric chest movement Cardio regular rate and regular rhythm GI normal to inspection, nondistended, normoactive bowel sounds Back/Spine normal ROM Extremity full ROM and no calf tenderness Skin no rashes or lesions noted General Skin Exam: no breakdown Neuro oriented x3 and CN's II-XII intact bilaterally Psych mental status grossly normal and thought process normal Labs Labs Labs: Hct 35.1 % (37-47) L Hgb 11.3 g/dL (12.0-15.0) L Syphilis Total Ab Non-reactive Hep Bs Antigen Non-Reactive (Nonreactive) Hepatitis C Antibody Non-Reactive (Nonreactive) Chlamydia DNA (LOVELY) Negative (Negative) N.gonorrhoeae DNA (LOVELY) Negative (Negative) HIV 1 2 Antibody Non-Reactive (Nonreactive) GBS negative Assessment Plan (1) 39 weeks gestation of : (2) Encounter for induction of labor: (3) Obesity affecting : (4) Anemia affecting , antepartum: (5) Late care affecting : (6) Gallstone pancreatitis: COMMENT: Patient scheduled for surgery 3 weeks post (7) Chlamydia infection affecting : (8) Anxiety: PLAN: Plan Admit to labor and delivery Routine labs GBS negative Cytotec 25 mcg PO every 4 hours x 6 doses total Will attempt placement of cooley bulb Dr. Gomez notified of admission and is collaborating physician 01/04/241916 Cosigner Signature (if applicable): CC: BASSEM Rodriguez; No Primary Care Physician Signed [facility] L509.8000on 01-04-2024 Syphilis Abs Non-Reactive [facility] Comment on above: Performed By: #### L 100.0100 #### [facility] [address] [place], [address] Type AND Screenon 01-04-2024 ABO and Rh group Nom (Bld) Blood group O Rh(D) positive [facility] Comment on above: Order Comment: Labor Performed By: #### L 100.0100, BTS #### [facility] [address] [place], [address] CBC panel Auto (Bld)on 12-31 Erythrocyte distribution width (RBC) [Ratio] 16.3 % High 11.5 - 15.0 % [facility] Hematocrit (Bld) [Volume fraction] 32.4 % Low 36.0 - 46.0 % [facility] Hemoglobin (Bld) [Mass/Vol] 10.4 g/dL Low 11.5 - 15.5 g/dL [facility] Interpretation and review of laboratory results Abnormal [facility] MCH (RBC) [Entitic mass] 25.2 pg Low 26.0 - 34.0 pg [facility] MCHC (RBC) [Mass/Vol] 32.1 g/dL 30.5 - 36.0 g/dL [facility] MCV (RBC) [Entitic vol] 78.5 fL Low 80.0 - 100.0 fL [facility] Nucleated RBC (Bld) [#/Vol] NINF [facility] Platelet mean volume (Bld) [Entitic vol] 9.0 fL 9.0 - 12.7 fL [facility] Platelets (Bld) [#/Vol] 266 10*3/uL [facility] RBC (Bld) [#/Vol] 4.13 10*6/uL 3.90 - 5.2 0 m/uL [facility] WBC (Bld) [#/Vol] 12.58 10*3/uL [facility] Erythrocyte distribution width (RBC) [Ratio] 16.3 % High 11.5-15.[address] [facility] Comment on above: Order Comment: Speci men Type: BLOOD SPECIMENOrdering Facility: [facility] Address: [address] [place] [address] Performed By: #### 5 8410-2 ####[facility] HOSPITALLigia [id number] [place] [id number] [place] Hematocrit (Bld) [Volume fraction] 32.4 % Low 36.0-46.[address] [facility] Comment on above: Order Comment: Speci men Type: BLOOD SPECIMENOrdering Facility: [facility] Address: [address] [place] [address] Performed By: #### 5 8410-2 ####[facility] LUISMARY JO [id number] [place] [address] [place] Hemoglobin (Bld) [Mass/Vol] 10.4 g/dL Low 11.5-15.[address] [facility] Comment on above: Order Comment: Speci men Type: BLOOD SPECIMENOrdering Facility: [facility] Address: [address] [place], [place] [address] Performed By: #### 5 8410-2 ####[facility] CENTERLISSYLigia [id number] [place] [address] [place] MCH (RBC) [Entitic mass] 25.2 pg Low 26.0-34.[address] [facility] Comment on above: Order Comment: Speci men Type: BLOOD SPECIMENOrdering Facility: [facility] Address: [address] [place] [address] Performed By: #### 5 8410-2 ####[facility] HOSPITALA [id number] [place] [address] [place] MCHC (RBC) [Mass/Vol] 32.1 g/dL Normal 30.5-36.0 [facility] Comment on above: Order Comment: Speci men Type: BLOOD SPECIMENOrdering Facility: [facility] Address: [address] [place] [address] Performed By: #### 5 8410-2 ####[facility] CENTERNCLIA [id number] [place] [address] [place] MCV (RBC) [Entitic vol] 78.5 fL Low 80.0-100.[address] [facility] Comment on above: Order Comment: Speci men Type: BLOOD SPECIMENOrdering Facility: [facility] Address: [address] [place] [address] Performed By: #### 5 8410-2 ####[facility] MILLTOWNCLIA [id number] [place] [address] [place] Nucleated RBC (Bld) [#/Vol] 10*3/uL Normal <0.[address] [facility] Comment on above: Order Comment: Speci men Type: BLOOD SPECIMENOrdering Facility: [facility] Address: [address] [place] [address] Performed By: #### 5 8410-2 ####[facility] MILLWNCLIA [id number] [place] [address] [place] Platelet mean volume (Bld) [Entitic vol] 9.0 fL Normal 9.0-12.[address] [facility] Comment on above: Order Comment: Speci men Type: BLOOD SPECIMENOrdering Facility: [facility] Address: [address] [place] [address] Performed By: #### 5 8410-2 ####[facility] PARKWAYWNCLIA [id number] [place] [address] [place] Platelets (Bld) [#/Vol] 266 10*3/uL Normal 150-[address] [facility] Comment on above: Order Comment: Speci men Type: BLOOD SPECIMENOrdering Facility: [facility] Address: [address] [place] [address] Performed By: #### 5 8410-2 ####[facility] MILLTOWNCLIA [id number] [place] [address] [place] RBC (Bld) [#/Vol] 4.13 10*6/uL Normal 3.90-5.20 [facility] Comment on above: Order Comment: Speci men Type: BLOOD SPECIMENOrdering Facility: [facility] Address: [address] [place] [address] Performed By: #### 5 8410-2 ####[facility] CENTERNCLIA [id number] [place] [address] [place] WBC (Bld) [#/Vol] 12.58 10*3/uL High 3.70-11.00 [facility] Comment on above: Order Comment: Speci men Type: BLOOD SPECIMENOrdering Facility: [facility] Address: [facility] [address] [place] [id number] Performed By: #### 5 8410-2 ####[facility] FLORENCIO MITCHELLNCLIA [id number] [place], [place] [id number] [place] [address] [place] CNPBettina 01-01-2024 RANN Telephone (OBGYWM) -------- ADILENE THURMAN ([id number]) 1 F Date Time Provider Department 01/01/24 JUNIOR RIVAS During your visit today, we recorded the following information about you: Allergies As of Date: 01/01/2024 (No Known Allergies) Date Reviewed: 01/01/2024 Reviewed by: Junior Rivas APRN.MAINTENANCE REPAIRER - Fully Assessed Reason for Visit: Orders [681] Order(s):ferrous sulfate 325 mg (65 mg iron) tabletTake 1 tablet by mouth every other day.Disp: 30 tabletRfl: 2 Prescriptions as of 01/01/2024 - ferrous sulfate 325 mg (65 mg iron) tablet Take 1 tablet by mouth every other day. - miconazole (MONISTAT 7) 2 % vaginal cream Use 1 Applicator vaginally daily at bedtime for 7 days. - acetaminophen 325 mg cap Take 625 mg by mouth as needed for pain. - vit/iron fum/folic ac (-FOLIC ACID ORAL) Take 1 tablet by mouth once daily. Problem List As Of Date 01/01/2024 Noted Resolved Hidradenitis suppurativa [L73.2] 07/20/2023 15 weeks gestation of [Z3A.15] 07/20/2023 11/17/2023 with uncertain dates in third trimest*07/20/2023 Obesity affecting in second trimester*07/20/2023 11/17/2023 Vaginal discharge during in second tr*07/20/2023 11/17/2023 History of posttraumatic stress disorder (PTSD)*07/20/2023 Nausea/vomiting in [O21.9] 07/20/2023 11/17/2023 Anxiety [F41.9] 07/20/2023 Family history of Down syndrome [Z82.79] 07/20/2023 Insomnia [G47.00] 07/20/2023 Late care affecting in secon*07/20/2023 11/17/2023 Bilateral hip pain [M25.551, M25.552] 07/20/2023 11/17/2023 Chlamydia infection affecting in firs*07/21/2023 Microcytosis [R71.8] 08/16/2023 11/17/2023 Obesity affecting in third trimester *11/06/2023 Decreased movements in third trimester [O*11/10/2023 11/17/2023 31 weeks gestation of [Z3A.31] 11/10/2023 11/17/2023 Acute gallstone pancreatitis [K85.10] 11/17/2023 32 weeks gestation of [Z3A.32] 11/17/2023 11/17/2023 Prematurity of fetus [P07.30] 11/17/2023 12/11/2023 Allergic rhinitis [J30.9] 09/18/2014 Adenoid hypertrophy [J35.2] 08/22/2014 01/01/2024 Unspecified sinusitis (chronic) [J32.9] 09/18/2014 01/01/2024 Urinary tract infection in mother during pregna*09/18/2023 01/01/2024 BMI (body mass index), pediatric, > 99% for age*02/19/2015 12/11/2023 PTSD (post-traumatic stress disorder) [F43.10] 12/06/2023 Acute gallstone pancreatitis [K85.10] 12/07/2023 12/07/2023 Contraceptive management [Z30.9] 12/07/2023 , GI problems, third trimester [O26.89*12/07/2023 Supervision of high risk in third tri*12/11/2023 35 weeks gestation of [Z3A.35] 12/11/2023 01/01/2024 Iron deficiency anemia [D50.9] Prescriptions ordered this encounter Disp Refills Start End FERROUS SULFATE 325 MG (65 MG IRON) * 30 t* 2 01/01/2024 Route: ORAL Sig: Take 1 tablet by mouth every other day. Medications Discontinued During This Encounter Prescriptions - ferrous sulfate 325 mg (65 mg iron) tablet (Discontinued) Reported on 01/01/2024 Encounter Status:Closed by JUNIOR RIVAS on 01/01/24 [facility] HISTORY PHYSICALon HISTORY PHYSICAL HNO ID: [id number] Author: ARLETTE MURGUIA APRN.MAINTENANCE REPAIRER Service: ? Author Type: Nurse Practitioner Type: H&P Filed: 01/01/2024 13:42 Note Text: HISTORY AND PHYSICAL EXAMINATION SERVICE DATE: 01/01/2024 SERVICE TIME: 1:01 PM PRIMARY CARE PHYSICIAN: No primary care provider on file. Assessment Patient has the following medical conditions which may affect cady-operative course: , GI problems, third trimester Assessment: Scheduled for induction January 04, 2024 and advised to have lap pk 3 weeks post-. Reviewed /nursing during the perioperative period with patient today. Acute gallstone pancreatitis Assessment: Scheduled for lap pk 3 weeks post . Lab Results Component Value Date TBILI 1.1 12/07/2023 ALT 89 (H) 12/07/2023 AST 59 (H) 12/07/2023 ALKPHOS 188 (H) 12/07/2023 Obesity affecting in third trimester Assessment: Body mass index is 47.43 kg/m?. Iron deficiency anemia Assessment: Labs stable. Not taking oral iron as she reports she was never instructed to continue after hospitalization for gallbladder issues. Lab Results Component Value Date HB 10.3 (L) 12/07/2023 HB 11.4 (L) 12/06/2023 HCT 32.4 (L) 12/07/2023 HCT 34.9 (L) 12/06/2023 Lawrence Activity Status Index: METS: Climb a flight of stairs or walk up a hill (5.50 METs) DASI Score: 5.5 Patient denies any chest pain or undue shortness of breath with the above physical activity. Clinical Frailty Scale: 2. Well STOP-Bang Score: Snores loudly BMI greater than 35 kg/m2 Denies feeling tired, fatigued, or sleepy during the daytime Has not been observed to stop breathing or choking/gasping during sleep Denies having high blood pressure Patient 50 years old or younger Does not have a large neck Non-male patient STOP-Bang Score: 2 ANESTHESIA FINDINGS: Intubation History: No history of difficult intubation. No abnormal airway history Significant Anesthesia Considerations: none Airway History: No history of difficult airway No abnormal airway history I - PHYSICAL EVALUATION AIRWAY Patient intubated: No. Tracheostomy tube not present Mallampati: II. TM distance: >3 FB. Neck ROM: full ROM without neurological symptoms. Mouth opening: adequate. Short neck: no. Thick neck: no Genao present: no Lip Bite Test: II Microretrognathia/Micron agthia/Recessed Chin: No DENTAL Dental findings: chipped. Additional comments: Caps. II - ANESTHESIA PLAN Beta Soumya Monitoring Plan Post Procedure Analgesic Plan Prepared for Surgery: optimally prepared for surgery. CONSULTS: Patient does not require consults for optimization at this time Planned Anesthetic: anesthesia choice The Following Tests/Procedures Have Been Initiated: No orders of the defined types were placed in this encounter. REASON FOR VISIT: Adilene Thurman is a 18 year old female who is scheduled for LAPAROSCOPIC CHOLECYSTECTOMY WITH GRAMS at the request of Dr. Joana Hernandez for consultation. My final recommendation will be communicated back to the requesting physician by way of shared medical record or letter. Subjective The patient has the following: ACTIVE PROBLEM LIST Hidradenitis Suppurativa With Uncertain Dates in Third Trimester History of Posttraumatic Stress Disorder (Ptsd) Anxiety Family History of Down Syndrome Insomnia Chlamydia Infection Affecting in First Trimester Obesity Affecting in Third Trimester Acute Gallstone Pancreatitis Allergic Rhinitis Ptsd (Post-Traumatic Stress Disorder) Contraceptive Management , GI Problems, Third Trimester Supervision of High Risk in Third Trimester Iron Deficiency Anemia COVID-19 Immunization Status Overdue - Covid-19 Vaccine () Overdue since 03/10/2023 05/16/2022 Imm Admin: COVID-19 original vaccine, full dose, monovalent (MODERNA) 04/18/2022 Imm Admin: COVID-19 original vaccine, full dose, monovalent (MODERNA) CHIEF COMPLAINT: Anesthesia Consult HPI: 18 year old female presents with gallstones and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 By: #### L 501.2400, L500.4050, L501.2450 #### [facility] [address] [place], [address] GAP 8 Normal 5-15 [facility] Comment on above: Performed By: #### L 501.2400, L500.4050, L501.2450 #### [facility] [address] [place], [address] GFR/1.73 sq M.predicted among non-blacks MDRD (S/P/Bld) [Vol rate/Area] 132 mL/min/{1.73_m2} Normal >60 [facility] Comment on above: Result Comment: Non- GFR Calc Performed By: #### L 501.2400, L500.4050, L501.2450 #### [facility] [address] [place], [address] Globulin (S) [Mass/Vol] 4.2 g/dL Normal 2.2-4.2 [facility] Comment on above: Performed By: #### L 501.2400, L500.4050, L501.2450 #### [facility] [address] [place], [address] Glucose [Mass/Vol] 91 mg/dL Normal 74-106 [facility] Comment on above: Performed By: #### L 501.2400, L500.4050, L501.2450 #### [facility] [address] [place], [address] Potassium [Moles/Vol] 3.7 mmol/L Normal 3.5-5.1 [facility] Comment on above: Performed By: #### L 501.2400, L500.4050, L501.2450 #### [facility] [address] [place], [address] Sodium [Moles/Vol] 138 mmol/L Normal 136-145 [facility] Comment on above: Performed By: #### L 501.2400, L500.4050, L501.2450 #### [facility] [address] [place], [address] T PROT 7.0 g/dL Normal 6.4-8.2 [facility] Comment on above: Performed By: #### L 501.2400, L500.4050, L501.2450 #### [facility] [address] [place], [address] Urea nitrogen [Mass/Vol] 5 mg/dL Low 7-18 [facility] Comment on above: Performed By: #### L 501.2400, L500.4050, L501.2450 #### [facility] [address] [place], [address] Determination of erythrocyte mean corpuscular volume (MCV)Ordered By: Robbi Simmons on 11-16-2023 MCV (RBC) [Entitic vol] 80.1 fL 81-99 [facility] Erythrocyte distribution wid th ratioOrdered By: Robbi Simmons on 11-16-2023 Erythrocyte distribution width (RBC) [Ratio] 15.7 % 11.6-14.6 [facility] Erythrocyte distribution wid th standard deviationOrdered By: Robbi Simmons on 11-16-2023 Erythrocyte distribution width (RBC) [Entitic vol] 44.6 fL 35.1-43.9 [facility] Gallbladderon 11-16-2023 Gallbladder [facility] Imaging Services [address] [place] [address] Gallbladder MR#: [id number] Acct: [id number] Name: ADILENE THURMAN Rep #: [id number] : 2005 F 18 From: Joana Borges PCP: Care Physician,No Primary Status: REG CLI Study: Gallbladder Date of Exam: 11/16/23 Exam# [id number] Ordering Dr: Robbi Simmons DO [id number] INDICATION: RUQ pain EXAMINATION: Ultrasound US Abdomen Limited (quadrant) TECHNIQUE: Mujica scale and color doppler imaging was performed of the right upper quadrant. COMPARISON: No relevant prior comparison study available FINDINGS: LIVER: 1. The liver has normal configuration although is enlarged at 20.3 cm out. Mild fatty infiltration noted. No hepatic masses or ductal dilatation. Normal directional flow within the portal vein. 2. No focal hepatic lesion. There is no free fluid. GALLBLADDER AND BILIARY TREE: Gallbladder is mildly distended and contains a multiple dependent stones. Gallbladder wall estimated 2.1 mm. The proximal common bile duct measures 2.9 mm, which is within normal limits for the patient''s age. Sonographic Zhou''s sign: Negative. PANCREAS: No focal abnormality is demonstrated in the pancreas. No pancreatic ductal dilatation. Tail is suboptimally visualized obscured by bowel gas. RIGHT kidney: RIGHT kidney has normal configuration, no solid or cystic masses or hydronephrosis. RIGHT kidney dimension: 11.1 x 5.8 x 4.3 cm. US/Gallbladder IMPRESSION: 1. Cholelithiasis without evidence of biliary ductal dilatation, sonographic Zhou''s sign or pericholecystic fluid. 2. Hepatomegaly, mild hepatic steatosis without hepatic masses or ductal dilatation. 3. Normal appearance of the RIGHT kidney. Electronically Signed: Joana Feng MD at 20:42 EDT , CC: Dr. Robbi Simmons, DO; No Primary Care Physician Channel Marketing Specialist: Signed Normal [facility] Hematocrit Auto (Bld) [Volum e fraction]Ordered By: Robbi Simmons on 11-16-2023 Hematocrit (Bld) [Volume fraction] 35.1 % 37-47 [facility] Immature granulocytes/100 WB C Auto (Bld)Ordered By: Robbi Simmons on 11-16-2023 Immature granulocytes/100 WBC (Bld) 0.500 % 0.0-0.9 [facility] Comment on above: IG% - Immature Granu locytes (promyelocytes, myelocytes and metamyelocytes) > 1% indicates that a LEFT SHIFT is Present. Ketones Test strip Ql (U)Ord ered By: Robbi Simmons on 11-16-2023 Ketones Ql (U) 50 mg/dl Negative [facility] - Chemistry and C hemistry - challengeOrdered By: Robbi Simmons on 11-16-2023 Albumin/Globulin [Mass ratio] 0.7 {ratio} 0.9-2.4 [facility] ALP [Catalytic activity/Vol] 156 U/L 45-117 [facility] ALT [Catalytic activity/Vol] 28 U/L 13-56 [facility] CO2 [Moles/Vol] 23.0 mmol/L 21.0-32.0 [facility] Globulin (S) [Mass/Vol] 4.2 g/dL 2.2-4.2 [facility] Lipase [Catalytic activity/Vol] 2520 U/L 13-75 [facility] Comment on above: Please note:LIPASE r evised reference range effective 22. New Lipase methodology. Expected to produce lower values than the previous assay method. NEW Reference Range: 13 - 75 U/L Urea nitrogen/Creatinine [Mass ratio] 8.1 mg/mg 10-20 [facility] - Chemistry and C hemistry - challengeOrdered By: Julius Hamlin on 11-16-2023 Cholesterol in HDL [Mass/Vol] 76 mg/dL >40 [facility] Comment on above: The drugs N-Acetylcy steine and Metamizole may falsely depress this assay. Reference Range HDL <40 mg/dL Low HDL Cholesterol HDL >or= 60 mg/dL High HDL Cholesterol Cholesterol in LDL [Mass/Vol] 106 mg/dL 0-130 [facility] - CoagulationOrde red By: Robbi Simmons on 11-16-2023 INR Coag (Bld) [Relative time] 1.0 {INR} [facility] PT Coag (PPP) [Time] 13.5 s 11.7-14.9 [facility] - Hematology and Cell countsOrdered By: Robbi Simmons on 11-16-2023 MCH (RBC) [Entitic mass] 25.8 pg 27.0-32.0 [facility] MCHC (RBC) [Mass/Vol] 32.2 g/dL 32-36 [facility] Nucleated RBC/100 WBC (Bld) [Ratio] 0 % 0-5 [facility] Platelet mean volume (Bld) [Entitic vol] 9.4 fL 6.2-12.0 [facility] Platelets (Bld) [#/Vol] 311 10*3/uL 150-450 [facility] Lipaseon 11-16-2023 Lipase [Catalytic activity/Vol] 2520 U/L High 13-75 [facility] Comment on above: Result Comment: Mariluz menon note: LIPASE revised reference range effective 22. New Lipase methodology. Expected to produce lower values than the previous assay method. NEW Reference Range: 13 - 75 U/L Performed By: #### L 100.0100 #### [facility] [address] [place], [place], [address] Lipid Profileon 11-16-2023 Cholesterol [Mass/Vol] 219 mg/dL High 200 [facility] Comment on above: Result Comment: <200 mg/dL Desirable 200-240 mg/dL Borderline >240 mg/dL High Risk Performed By: #### L 500.4100 #### [facility] [address] [place], [address] Cholesterol in HDL [Mass/Vol] 76 mg/dL Normal [facility] Comment on above: Result Comment: The drugs N-Acetylcysteine and Metamizole may falsely depress this assay. Reference Range HDL <40 mg/dL Low HDL Cholesterol HDL >or= 60 mg/dL High HDL Cholesterol Performed By: #### L 500.4100 #### [facility] [address] [place], [address] Cholesterol in LDL [Mass/Vol] 106 mg/dL Normal 0-130 [facility] Comment on above: Performed By: #### L 500.4100 #### [facility] [address] [place], [address] Cholesterol in VLDL [Mass/Vol] 37 mg/dL Normal 5-40 [facility] Comment on above: Performed By: #### L 500.4100 #### [facility] [address] [place], [address] Triglyceride [Mass/Vol] 183 mg/dL Normal [facility] Comment on above: Result Comment: The drugs N-Acetylcysteine and Metamizole may falsely depress this assay. Serum Triglycerides Reference Interval Normal <150 mg/dL Borderline high 150 - 199 mg/dL High 200 - 499 mg/dL Very High > or = 500 mg/dL Performed By: #### L 500.4100 #### [facility] [address] [place], [address] Mucus LM Ql (Urine sed)Order ed By: Robbi Simmons on 11-16-2023 Mucus Ql (Urine sed) 1+ /hpf [facility] Nitrite Test strip Ql (U)Ord ered By: Robbi Simmons on 11-16-2023 Nitrite Ql (U) Negative Negative [facility] No Panel InformationOrdered By: Robbi Simmons on 11-16-2023 Estimated GFR (MDRD) Amer 159 mL/min >60 [facility] Comment on above: GFR Calc Estimated GFR (MDRD) Non-Af Amer 132 mL/min >60 [facility] Comment on above: Non- GFR Calc Urine RBC 0 SEEN /hpf 0-5 [facility] No Panel InformationOrdered By: Julius Hamlin on 11-16-2023 VLDL Cholesterol 37 mg/dL 5-40 [facility] OB Triage Physician Noteon 0 11-16-2023 OB Triage Physician Note [facility] Medical Records Department [address] [place] [address] OB Triage Physician Note 11/16/23 1758 MR#: [id number] Acct: [id number] Name: ADILENE THURMAN Rep #: [id number] : 2005 18 From: Robbi Simmons DO PCP: Care Physician,No Primary Status:REG CLI Y Location: [place] [address]-1 HPI - General General Date of Service: 11/16/23 Chief Complaint: epigastric pain HPI Narrative ADILENE THURMAN, is a 18 F who presents with epigastric pain that radiates into RUQ. She states her pain started early this morning. She then went to work and her pain continued to worsen at work. She thought the pain was because she was hungry, so she ate a sandwich which did not change her pain. She presents to OB triage after her work shift given the pain. She has nausea and vomiting with the pain. No fevers or chills. She denies having RUQ or epigastric pain previously. She denies headache or vision changes. She denies ctx's, cramping, lower abdominal pain, vb, lof. Good FM. PFSH PFSH Allergy/AdvReac Type Severity Reaction Status Date / Time No Known Allergies Allergy Verified 09/21/23 20:19 Physical Exam Const alert and no apparent distress Constitutional Narrative: Upon entering the room the patient was in the restroom to give a urine sample. She walked back to the bed without difficulty and is comfortable appearing General Appearance: comfortable HEENT normocephalic Resp normal respiratory effort GI soft to palpation and non-distended GI Narrative: +Tenderness in epigastric and RUQ area. No rebounding, no guarding, no rigidity. No lower abdominal tenderness Extremity Extremity Narrative: No hyper reflexia on patellar reflexes NST FHR Rate Baby A Baseline: 130 Variability:: Moderate Accelerations:: None Decelerations:: None Uterine Activity:: None Assessment Plan (1) 32 weeks gestation of : PLAN: CEFM with reassuring FHT at this time. She offers no obstetric complaints. (2) Epigastric pain: PLAN: Tenderness on exam in epigastric and RUQ areas with N/V: - She denies symptoms of pre e, no hyper reflexia on exam, BP's are normal. Check p/c ratio and labs as noted below. Low suspicion for pre eclampsia at this time - IVF hydration started and Zofran x 1 given for nausea - CBC with diff, CMP, amylase, lipase ordered - RUQ US ordered (3) RUQ pain: 11/16/23 1823 Date Robbi Simmons DO Cosigner Signature (if applicable): Date CC: Dr. Robbi Simmons, DO; No Primary Care Physician Signed Normal [facility] Partial Thromboplast Timeon 11-16-2023 aPTT Coag (Bld) [Time] 28.3 s Normal 24.1-36.2 [facility] Comment on above: Performed By: #### L 100.0100 #### [facility] [address] [place], [place], [address] Protein Test strip Ql (U)Ord ered By: Robbi Simmons on 11-16-2023 Protein Ql (U) 30 mg/dl Negative [facility] Protein+Creatinine Ratio,Uri neon 11-16-2023 PROT:CRE RATIO 103 mg/g CRE Normal 0-200 [facility] Comment on above: Performed By: #### L 501.0900 #### [facility] [address] [place], [address] Protein (U) [Mass/Vol] 33.8 mg/dL High <11.9 [facility] Comment on above: Performed By: #### L 501.0900 #### [facility] [address] [place], [address] UR CREAT 328.00 mg/dL Normal NO RANGE EST. [facility] Comment on above: Performed By: #### L 501.0900 #### [facility] [address] [place], [address] Prothrombin Time w/INRon INR Coag (PPP) [Relative time] 1.0 {INR} Normal [facility] Comment on above: Performed By: #### L 100.0100 #### [facility] [address] [place], [address] PT Coag (PPP) [Time] 13.5 s Normal 11.7-14.9 [facility] Comment on above: Performed By: #### L 100.0100 #### [facility] [address] [place], [address] RBC Auto (Bld) [#/Vol]Ordere d By: Robbi Simmons on 11-16-2023 RBC (Bld) [#/Vol] 4.38 10*6/uL 4.2-5.4 [facility] Serum or plasma calcium alia urement (mass/volume)Ordered By: Robbi Simmons on 11-16-2023 Calcium [Mass/Vol] 8.7 mg/dL 8.5-10.1 [facility] Serum or plasma creatinine m easurement (mass/volume)Ordered By: Robbi Simmons on 11-16-2023 Creatinine [Mass/Vol] 0.61 mg/dL 0.55-1.02 [facility] Comment on above: The validity of the calculated GFR & GFRAA in patients over 70 years has not been determined. Clinical correlation is essential. Serum or plasma urea nitroge n measurement (mass/volume)Ordered By: Robbi Simmons on 11-16-2023 Urea nitrogen [Mass/Vol] 5 mg/dL 7-18 [facility] Squamous epithelial cells de tection in urine sediment by light microscopyOrdered By: Robbi Simmons on 11-16-2023 Epithelial cells.squamous LM Ql (Urine sed) 5-10 SEEN /hpf 5-10 [facility] Thin prep Papanicolaou smear with manual screeningOrdered By: Robbi Simmons on 11-16-2023 Protein (U) [Mass/Vol] 33.8 mg/dL 0.0-11.8 [facility] Thin prep Papanicolaou smear with manual screening 2.8 g/dL 3.2-5.0 [facility] Thin prep Papanicolaou smear with manual screening 30 U/L 15-37 [facility] Thin prep Papanicolaou smear with manual screening 8 5-15 [facility] Urinalysis, Completeon 11-15 EPI,SQUAMOUS 5-10 SEEN Normal 5-10 [facility] Comment on above: Order Comment: COLOR OF URINE MAY AFFECT DIPSTICK RESULTS.CLEAN CATCH Performed By: #### L 100.0100 #### [facility] [address] [place], [address] Mucus Ql (Urine sed) 1+ /hpf Normal [facility] Comment on above: Order Comment: COLOR OF URINE MAY AFFECT DIPSTICK RESULTS.CLEAN CATCH Performed By: #### L 100.0100 #### [facility] [address] [place], [address] WBC 0-5 SEEN Normal 0-5 [facility] Comment on above: Order Comment: COLOR OF URINE MAY AFFECT DIPSTICK RESULTS.CLEAN CATCH Performed By: #### L 100.0100 #### [facility] [address] [place], [address] BACTERIA 0 SEEN Normal None Seen [facility] Comment on above: Order Comment: COLOR OF URINE MAY AFFECT DIPSTICK RESULTS.CLEAN CATCH Performed By: #### L 100.0100 #### [facility] [address] [place], [address] RBC 0 SEEN Normal 0-5 [facility] Comment on above: Order Comment: COLOR OF URINE MAY AFFECT DIPSTICK RESULTS.CLEAN CATCH Performed By: #### L 100.0100 #### [facility] [address] [place], [address] Urine blood detectionOrdered By: Robbi Simmons on 11-16-2023 RBC Ql (U) Negative Negative [facility] Urine clarityOrdered By: Miriam Simmons on 11-16-2023 Clarity (U) Clear Clear [facility] Urine color determinationOrd ered By: Robbi Simmons on 11-16-2023 Color (U) John Yellow [facility] Urine creatinine measurement (mass/volume)Ordered By: Robbi Simmons on 11-16-2023 Creatinine (U) [Mass/Vol] 328.00 mg/dL NO RANGE EST. [facility] Urine glucose detectionOrder ed By: Robbi Simmons on 11-16-2023 Glucose Ql (U) Normal mg/dl Normal [facility] Urine leukocyte esterase det ection by dipstickOrdered By: Robbi Simmons on 11-16-2023 Leukocyte esterase Test strip Ql (U) 25 /ul Negative [facility] Urine pHOrdered By: Robbi page on 11-16-2023 pH (U) 6.5 [pH] 5.0 - 8.0 [facility] Urine protein/creatinine mas s ratioOrdered By: Robbi Simmons on 11-16-2023 Protein/Creatinine (U) [Mass ratio] 103 mg/g CRE 0-200 [facility] Urine sediment bacteria coun t by microscopy (number/high power field)Ordered By: Robbi Simmons on 11-16-2023 Bacteria LM.HPF (Urine sed) [#/Area] 0 /[HPF] None Seen [facility] Urine specific gravity measu rementOrdered By: Robbi Simmons on 11-16-2023 Specific gravity (U) [Rel density] 1.015 1.002-1.030 [facility] Urine urobilinogen measureme ntOrdered By: Robbi Simmons on 11-16-2023 Urobilinogen Ql (U) 8 mg/dl Normal [facility] OB Triage Physician Noteon 0 09-22-2023 OB Triage Physician Note [facility] Medical Records Department [address] [place] [address] OB Triage Physician Note 09/22/23 0642 MR#: [id number] Acct: [id number] Name: ADILENE THURMAN Rep #: [id number] : 2005 18 From: Robbi Simmons DO PCP: Care Physician,No Primary Status:DEP CLI Y Location: [facility] HPI - General General Date of Admission: 09/21/23 Date of Service: 09/21/23 Chief Complaint: spotting HPI Narrative ADILENE THURMAN, is a 18 F who presents at 24 week gestation with 1 episode of spotting with wiping. No further bleeding and not having to wear a pad. Some cramping that she has had since being treated for UTI. Still on antibiotic for UTI. Just completed treatment for chlamydia and BV. No lof. No ctx's. Good FM. No abdominal pain other than cramping. PFSH PFSH Allergy/AdvReac Type Severity Reaction Status Date / Time No Known Allergies Allergy Verified 09/21/23 20:19 NST FHR Rate Baby A Baseline: 120 Variability:: Moderate NST Reactive:: Appropriate for gestational age Uterine Activity:: quiet Assessment Plan (1) 24 weeks gestation of : (2) Spotting affecting : PLAN: Had 1 episode of spotting with wiping. Rh positive. Cervix c/t/h per RN. No ctx's on toco. To finish course of antibiotics for UTI. Will need DHRUV for chlamydia in office, and spotting could be secondary to cervicitis. Bleeding precautions. 09/22/23 0646 Date Robbi Simmons DO Cosigner Signature (if applicable): Date CC: Dr. Robbi Simmons, DO; No Primary Care Physician Signed Normal [facility] Urinalysis, Routine (Dipstic k)on 09-21-2023 BILIRUBIN URINE Normal Negative [facility] Comment on above: Order Comment: MALINA CTOR TO SPECIFY Result Comment: NO S PECIMEN COLLECTED. PATIENT DEPARTED Performed By: #### L 500.4100 #### [facility] [address] [place], [address] Clarity (U) Normal Clear [facility] Comment on above: Order Comment: COLLE CTOR TO SPECIFY Result Comment: NO S PECIMEN COLLECTED. PATIENT DEPARTED Performed By: #### L 500.4100 #### [facility] [address] [place], [address] Color (U) Normal Yellow [facility] Comment on above: Order Comment: MALINA CTOR TO SPECIFY Result Comment: NO S PECIMEN COLLECTED. PATIENT DEPARTED Performed By: #### L 500.4100 #### [facility] [address] [place], [address] GLUCOSE, UR Normal Normal [facility] Comment on above: Order Comment: COLLE CTOR TO SPECIFY Result Comment: NO S PECIMEN COLLECTED. PATIENT DEPARTED Performed By: #### L 500.4100 #### [facility] [address] [place], [address] KETONE UR Normal Negative [facility] Comment on above: Order Comment: MALINA CTOR TO SPECIFY Result Comment: NO S PECIMEN COLLECTED. PATIENT DEPARTED Performed By: #### L 500.4100 #### [facility] [address] [place], [address] LEUK ESTERASE Normal Negative [facility] Comment on above: Order Comment: MALINA CTOR TO SPECIFY Result Comment: NO S PECIMEN COLLECTED. PATIENT DEPARTED Performed By: #### L 500.4100 #### [facility] [address] [place], [address] Nitrite Ql (U) Normal Negative [facility] Comment on above: Order Comment: COLLE CTOR TO SPECIFY Result Comment: NO S PECIMEN COLLECTED. PATIENT DEPARTED Performed By: #### L 500.4100 #### [facility] [address] [place], [address] OCCULT BLOOD-UR Normal Negative [facility] Comment on above: Order Comment: MALINA ENGLANDOR TO SPECIFY Result Comment: NO S PECIMEN COLLECTED. PATIENT DEPARTED Performed By: #### L 500.4100 #### [facility] [address] [place], [address] pH UR Normal 5.0 - 8.0 [facility] Comment on above: Order Comment: MALINA CTOR TO SPECIFY Result Comment: NO S PECIMEN COLLECTED. PATIENT DEPARTED Performed By: #### L 500.4100 #### [facility] [address] [place], [address] PROT DIPSTX Normal Negative [facility] Comment on above: Order Comment: MALINA CTOR TO SPECIFY Result Comment: NO S PECIMEN COLLECTED. PATIENT DEPARTED Performed By: #### L 500.4100 #### [facility] [address] [place], [address] SP.GR. DIPSTX Normal 1.002-1.030 [facility] Comment on above: Order Comment: MALINA CTOR TO SPECIFY Result Comment: NO S PECIMEN COLLECTED. PATIENT DEPARTED Performed By: #### L 500.4100 #### [facility] [address] [place], [address] UR Preservative Normal [facility] Comment on above: Order Comment: MALINA CTOR TO SPECIFY Result Comment: NO S PECIMEN COLLECTED. PATIENT DEPARTED Performed By: #### L 500.4100 #### [facility] [address] [place], [address] UROBILI Normal Normal [facility] Comment on above: Order Comment: MALINA CTOR TO SPECIFY Result Comment: NO S PECIMEN COLLECTED. PATIENT DEPARTED Performed By: #### L 500.4100 #### [facility] [address] [place], [address] Urine Cultureon 09-17-2023 [facility] Escherichia coli Romeo Count 50,000-80,000 Escherichia coli: REACTION Ampicillin Islt ALDEN >=32 R Ampicillin+Sulbac Islt ALDEN 8 S ceFAZolin Islt ALDEN <=4 S Cefepime Islt ALDEN <=0.12 S cefTRIAXone Islt ALDEN <=0.25 S Ciprofloxacin Islt ALDEN <=0.25 S Ertapenem Islt ALDEN <=0.12 S B-Lactamase Extended Susc Islt NEG Gentamicin Islt ALDEN <=1 S Imipenem Islt ALDEN <=0.25 S levoFLOXacin Islt ALDEN <=0.12 S Nitrofurantoin Islt ALDEN <=16 S Pip+Tazo Islt ALDEN <=4 S Tobramycin Islt ALDEN <=1 S TMP SMX Islt ALDEN >=320 R Normal [facility] Comment on above: Performed By: #### L 100.0100 #### [facility] [address] [place], [address] OB Triage Physician Noteon 0 09-16-2023 OB Triage Physician Note [facility] Medical Records Department [address] [place] [address] OB Triage Physician Note 09/16/23 1153 MR#: [id number] Acct: [id number] Name: ADILENE THURMAN Rep #: [id number] : 2005 18 From: Manda Oconnor MD PCP: Care Physician,No Primary Status:DEP CLI Y Location: [facility] HPI - General General Date of Service: 09/15/23 HPI Narrative ADILENE THURMAN, is a 18 F who presents with pelvic cramping Maternal Data Information Final DELANEY: 01/11/24 Gestational age: 23 1 PFSH PFSH Allergy/AdvReac Type Severity Reaction Status Date / Time No Known Allergies Allergy Verified 09/15/23 22:41 Assessment Plan (1) Urinary tract infection affecting care of mother in second trimester, antepartum: PLAN: Plan Macrobid given for UTI in 09/16/23 1201 Date Manda Oconnor MD Cosigner Signature (if applicable): Date CC: Dr. Manda Oconnor MD; No Primary Care Physician Signed Normal [facility] Bilirubin Test strip Ql (U)O rdered By: Manda Oconnor on 09-15-2023 Bilirubin Ql (U) Negative Negative [facility] Culture, urineOrdered By: Rosey Oconnor on 09-15-2023 Bacteria identified Cx Nom (U) Escherichia coli [facility] Ketones Test strip Ql (U)Ord ered By: Manda Oconnor on 09-15-2023 Ketones Ql (U) 5 mg/dl Negative [facility] Nitrite Test strip Ql (U)Ord ered By: Manda Oconnor on 09-15-2023 Nitrite Ql (U) Positive Negative [facility] Protein Test strip Ql (U)Ord ered By: Manda Oconnor on 09-15-2023 Protein Ql (U) 30 mg/dl Negative [facility] Urinalysis, Routine (Dipstic k)on 09-15-2023 BILIRUBIN URINE Negative Normal Negative [facility] Comment on above: Order Comment: CLEAN CATCH Performed By: #### L 400.2010 #### [facility] [address] [place], [place], [address] Clarity (U) Sl. Cloudy Normal Clear [facility] Comment on above: Order Comment: CLEAN CATCH Performed By: #### L 400.2010 #### [facility] [address] [place], [place], [address] Color (U) Yellow Normal Yellow [facility] Comment on above: Order Comment: CLEAN CATCH Performed By: #### L 400.2010 #### [facility] [address] [place], [place], [address] GLUCOSE, UR Normal Normal Normal [facility] Comment on above: Order Comment: CLEAN CATCH Performed By: #### L 400.2010 #### [facility] [address] [place], [address] KETONE UR 5 mg/dl Abnormal Negative [facility] Comment on above: Order Comment: CLEAN CATCH Performed By: #### L 400.2010 #### [facility] [address] [place], [address] LEUK ESTERASE 500 /ul Abnormal Negative [facility] Comment on above: Order Comment: CLEAN CATCH Performed By: #### L 400.2010 #### [facility] [address] [place], [address] Nitrite Ql (U) Positive Abnormal Negative [facility] Comment on above: Order Comment: CLEAN CATCH Performed By: #### L 400.2010 #### [facility] [address] [place], [address] OCCULT BLOOD-UR 25 /ul Abnormal Negative [facility] Comment on above: Order Comment: CLEAN CATCH Performed By: #### L 400.2010 #### [facility] [address] [place], [address] pH UR 6.0 Normal 5.0 - 8.0 [facility] Comment on above: Order Comment: CLEAN CATCH Performed By: #### L 400.2010 #### [facility] [address] [place], [address] PROT DIPSTX 30 mg/dl Abnormal Negative [facility] Comment on above: Order Comment: CLEAN CATCH Performed By: #### L 400.2010 #### [facility] [address] [place], [address] SP.GR. DIPSTX 1.025 Normal 1.002-1.030 [facility] Comment on above: Order Comment: CLEAN CATCH Performed By: #### L 400 #### [facility] [address]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 Dose#: 27.8 mGy PROCEDURE: CT FACIAL BONES WITHOUT CONTRAST COMPARISON: None. INDICATIONS: Trauma. TECHNIQUE: After obtaining the patient's consent, CT images were created without non-ionic intravenous contrast. All CT scans at this facility use dose modulation, iterative reconstruction, and/or weight based dosing when appropriate to reduce radiation dose to as low as reasonably achievable. IV CONTRAST: No IV contrast used,0ml TOTAL DOSE: 27.8 CTDIvol(mGy) FINDINGS: FACIAL BONES: Normal. No bony lesion or fracture SINUSES: There is mucosal thickening of the maxillary sinuses. NASAL FOSSA: There is rightward nasal septal deviation. No mass or fracture. SKULL BASE: Normal. No mass or bone destruction. ORBITS: Normal. No visible mass, hematoma, edema or fracture. CAVERNOUS SINUS: Normal. Symmetric appearance with no visible lesion. SALIVARY GLANDS: Normal. The parotid and submandibular glands are unremarkable. OTHER: Midline frontal scalp laceration. There is soft tissue stranding overlying the mandible. There is a small radiopaque density adjacent to the buccal mucosa of the right mandible central incisor, series 6, image 34. CONCLUSION: 1. Midline frontal scalp laceration. 2. Soft tissue swelling overlying the mandible. 3. Small radiopaque density adjacent to the buccal mucosa of the right mandible, correlate for foreign body. Continued Report - Page 2 of 2 Patient: ADILENE THURMAN Phone#: : 2005 Age: 14 Gender: F Pt. Type: ER Account: [id number] Location: 052 Ordering: DR. CHRISTIAN BOUDREAUX Exam Date: 08/20/2020/17:28 Family Phys: Charge Code: [id number] Physician: [place] Order #: [id number] DLP Dose#: 27.8 mGy Dictated by: Portia Spicer MD on 08/20/2020 at 17:55 Approved by: Portia Spicer MD on 08/20/2020 at 18:[address] [facility] Vital Signs Date Time Vital Sign Value Performing Clinician Facility 01-21-2025 16:01-0400 Body mass index (BMI) [Ratio] 45.45 kg/m2 Ethel Martin APRN.CNP Work Phone: [facility] 01-21-2025 16:01-0400 Body temperature 98.01 [degF] Ethel Martin APRN.CNP Work Phone: [facility] 01-21-2025 16:01-0400 Body weight 123.9 kg Ethel Martin APRN.CNP Work Phone: [facility] 01-21-2025 16:01-0400 Diastolic blood pressure 66 mm[Hg] Ethel Pietro TAX AGENT.MAINTENANCE REPAIRER Work Phone: [facility] 01-21-2025 16:01-0400 Heart rate 88 /min Ethel Pietro TAX AGENT.MAINTENANCE REPAIRER Work Phone: [facility] 01-21-2025 16:01-0400 Respiratory rate 14 /min Ethel Pietro TAX AGENT.MAINTENANCE REPAIRER Work Phone: [facility] 01-21-2025 16:01-0400 SaO2% (BldA) [Mass fraction] 98 % Ethel Pietro TAX AGENT.MAINTENANCE REPAIRER Work Phone: [facility] 01-21-2025 16:01-0400 Systolic blood pressure 88 mm[Hg] Ethel Pietro TAX AGENT.MAINTENANCE REPAIRER Work Phone: [facility] 03-05-2024 09:45-0400 Diastolic blood pressure 71 mm[Hg] Kaylyn Ramirez MD Work Phone: [facility] 03-05-2024 09:45-0400 Heart rate 88 /min Kaylyn Ramirez MD Work Phone: [facility] 03-05-2024 09:45-0400 Respiratory rate 21 /min Kaylyn Ramirez MD Work Phone: [facility] 03-05-2024 09:45-0400 SaO2% (BldA) [Mass fraction] 99 % Kaylyn Ramirez MD Work Phone: [facility] 03-05-2024 09:45-0400 Systolic blood pressure 121 mm[Hg] Kaylyn Ramirez MD Work Phone: [facility] 03-05-2024 09:17-0400 Body temperature 97 [degF] Kaylyn Ramirez MD Work Phone: [facility] 02-12-2024 11:34-0400 Body mass index (BMI) [Ratio] 41.27 kg/m2 Robbi Simmons MD Work Phone: [facility] 02-12-2024 11:34-0400 Body weight 112.49 kg Robbi Simmons MD Work Phone: [facility] 02-12-2024 11:34-0400 Diastolic blood pressure 72 mm[Hg] Robbi Simmons MD Work Phone: [facility] 02-12-2024 11:34-0400 Systolic blood pressure 110 mm[Hg] Robbi Simmons MD Work Phone: [facility] 02-10-2024 09:08-0400 Body height 165.1 cm Joana Hernandez MD Work Phone: [facility] 02-10-2024 09:08-0400 Diastolic blood pressure 62 mm[Hg] Joana Hernandez MD Work Phone: [facility] 02-10-2024 09:08-0400 Heart rate 104 /min Joana Hernandez MD Work Phone: [facility] 02-10-2024 09:08-0400 SaO2% (BldA) [Mass fraction] 98 % Joana Hernandez MD Work Phone: [facility] 02-10-2024 09:08-0400 Systolic blood pressure 89 mm[Hg] Joana Hernandez MD Work Phone: [facility] 01-12-2024 16:04-0400 Body mass index (BMI) [Ratio] 45.76 kg/m2 Ethel Shannon APRN.CNM Work Phone: [facility] 01-12-2024 16:04-0400 Body weight 124.74 kg Ethel Shannon APRN.CNM Work Phone: [facility] 01-12-2024 16:04-0400 Diastolic blood pressure 72 mm[Hg] Ethel Shannon APRN.CNM Work Phone: [facility] 01-12-2024 16:04-0400 Systolic blood pressure 110 mm[Hg] Ethel Shannon APRN.CNM Work Phone: [facility] 01-01-2024 14:19-0400 Body mass index (BMI) [Ratio] 47.26 kg/m2 Junior Solanojulia TAX AGENT.MAINTENANCE REPAIRER Work Phone: [facility] 01-01-2024 14:19-0400 Body weight 128.82 kg Junior Rivas TAX AGENT.MAINTENANCE REPAIRER Work Phone: [facility] 01-01-2024 14:19-0400 Diastolic blood pressure 74 mm[Hg] Junior Rivas TAX AGENT.MAINTENANCE REPAIRER Work Phone: [facility] 01-01-2024 14:19-0400 Heart rate 104 /min Junior Rivas TAX AGENT.MAINTENANCE REPAIRER Work Phone: [facility] 01-01-2024 14:19-0400 Respiratory rate 14 /min Junior Rivas TAX AGENT.MAINTENANCE REPAIRER Work Phone: [facility] 01-01-2024 14:19-0400 Systolic blood pressure 108 mm[Hg] Junior Rivas TAX AGENT.MAINTENANCE REPAIRER Work Phone: [facility] 01-01-2024 12:52-0400 Body height 165.1 cm Pacc 1 Work Phone: [facility] 01-01-2024 12:52-0400 Body mass index (BMI) [Ratio] 47.43 kg/m2 Pacc 1 Work Phone: [facility] 01-01-2024 12:52-0400 Body temperature 97.5 [degF] Pacc 1 Work Phone: [facility] 01-01-2024 12:52-0400 Body weight 129.28 kg Pacc 1 Work Phone: [facility] 01-01-2024 12:52-0400 Diastolic blood pressure 84 mm[Hg] Pacc 1 Work Phone: [facility] 01-01-2024 12:52-0400 Heart rate 116 /min Pacc 1 Work Phone: [facility] 01-01-2024 12:52-0400 Respiratory rate 14 /min Pacc 1 Work Phone: [facility] 01-01-2024 12:52-0400 SaO2% (BldA) [Mass fraction] 98 % Pac 1 Work Phone: [facility] 01-01-2024 12:52-0400 Systolic blood pressure 120 mm[Hg] Pacc 1 Work Phone: [facility] 12-25-2023 14:13-0400 Body mass index (BMI) [Ratio] 46.93 kg/m2 Adal Gomez MD Work Phone: [facility] 12-25-2023 14:13-0400 Body weight 127.91 kg Adal Gomez MD Work Phone: [facility] 12-25-2023 14:13-0400 Diastolic blood pressure 62 mm[Hg] Adal Gomez MD Work Phone: [facility] 12-25-2023 14:13-0400 Heart rate 136 /min Adal Gomez MD Work Phone: [facility] 12-25-2023 14:13-0400 Systolic blood pressure 102 mm[Hg] Adal Gomez MD Work Phone: [facility] 12-18-2023 15:08-0400 Body mass index (BMI) [Ratio] 46.39 kg/m2 Robbi Simmons MD Work Phone: [facility] 12-18-2023 15:08-0400 Body weight 126.46 kg Robbi Simmons MD Work Phone: [facility] 12-18-2023 15:08-0400 Diastolic blood pressure 72 mm[Hg] Robbi Simmons MD Work Phone: [facility] 12-18-2023 15:08-0400 Systolic blood pressure 118 mm[Hg] Robbi Simmons MD Work Phone: [facility] 12-11-2023 09:24-0400 Body mass index (BMI) [Ratio] 46.83 kg/m2 Ethel Shannon APRN.CNM Work Phone: [facility] 12-11-2023 09:24-0400 Body weight 127.64 kg Ethel Shannon APRN.CNM Work Phone: [facility] 12-11-2023 09:24-0400 Diastolic blood pressure 62 mm[Hg] Ethel Shannon APRN.CNM Work Phone: [facility] 12-11-2023 09:24-0400 Systolic blood pressure 101 mm[Hg] Ethel Shannon APRN.CNM Work Phone: [facility] 12-05-2023 15:16-0400 Body height 165.1 cm Joana Hernandez MD Work Phone: [facility] 12-05-2023 15:16-0400 Body mass index (BMI) [Ratio] 46.56 kg/m2 Joana Hernandez MD Work Phone: [facility] 12-05-2023 15:16-0400 Body temperature 97.3 [degF] Joana Hernandez MD Work Phone: [facility] 12-05-2023 15:16-0400 Body weight 126.92 kg Joana Hernandez MD Work Phone: [facility] 12-05-2023 15:16-0400 Diastolic blood pressure 82 mm[Hg] Joana Hernandez MD Work Phone: [facility] 12-05-2023 15:16-0400 Heart rate 128 /min Joana Hernandez MD Work Phone: [facility] 12-05-2023 15:16-0400 SaO2% (BldA) [Mass fraction] 99 % Joana Hernandez MD Work Phone: [facility] 12-05-2023 15:16-0400 Systolic blood pressure 118 mm[Hg] Joana Hernandez MD Work Phone: [facility] 11-27-2023 09:24-0400 Body mass index (BMI) [Ratio] 46.59 kg/m2 Ericka Reyna MD Work Phone: [facility] 11-27-2023 09:24-0400 Body weight 127.01 kg Ericka Reyna MD Work Phone: [facility] 11-27-2023 09:24-0400 Diastolic blood pressure 70 mm[Hg] Ericka Reyna MD Work Phone: [facility] 11-27-2023 09:24-0400 Systolic blood pressure 107 mm[Hg] Ericka Reyna MD Work Phone: [facility] 11-20-2023 14:52-0400 Body mass index (BMI) [Ratio] 46.23 kg/m2 Robbi Simmons MD Work Phone: [facility] 11-20-2023 14:52-0400 Body weight 126.01 kg Robbi Simmons MD Work Phone: [facility] 11-20-2023 14:52-0400 Diastolic blood pressure 70 mm[Hg] Robbi Simmons MD Work Phone: [facility] 11-20-2023 14:52-0400 Systolic blood pressure 109 mm[Hg] Robbi Simmons MD Work Phone: [facility] 11-16-2023 22:53-0400 Body temperature 97.6 [degF] [facility] 11-16-2023 22:53-0400 Diastolic blood pressure 66 mm[Hg] [facility] 11-16-2023 22:53-0400 Heart rate 103 /min [facility] 11-16-2023 22:53-0400 Respiratory rate 14 /min [facility] 11-16-2023 22:53-0400 Systolic blood pressure 131 mm[Hg] [facility] 11-16-2023 22:52-0400 SaO2% (BldA) [Mass fraction] 97 % [facility] 11-16-2023 17:13-0400 Body height 165.1 cm [facility] 11-16-2023 17:13-0400 Body mass index (BMI) [Ratio] 47 kg/m2 [facility] 11-16-2023 17:13-0400 Body weight 128.36 kg [facility] 11-10-2023 11:35-0400 Diastolic blood pressure 68 mm[Hg] Maria Isabel Plotts TAX AGENT.CNM Work Phone: [facility] 11-10-2023 11:35-0400 Systolic blood pressure 106 mm[Hg] Maria Isabel Plotts TAX AGENT.CNM Work Phone: [facility] 11-06-2023 14:26-0400 Body mass index (BMI) [Ratio] 46.76 kg/m2 Maria Isabel Plotts TAX AGENT.CNM Work Phone: [facility] 11-06-2023 14:26-0400 Body weight 127.46 kg Maria Isabel Plotts TAX AGENT.CNM Work Phone: [facility] 11-06-2023 14:26-0400 Diastolic blood pressure 70 mm[Hg] Maria Isabel Plotts TAX AGENT.CNM Work Phone: [facility] 11-06-2023 14:26-0400 Systolic blood pressure 104 mm[Hg] Maria Isabel Plotts TAX AGENT.CNM Work Phone: [facility] 10-23-2023 14:21-0400 Body weight 126.19 kg Robbi Simmons MD Work Phone: [facility] 10-23-2023 14:21-0400 Diastolic blood pressure 72 mm[Hg] Robbi Simmons MD Work Phone: [facility] 10-23-2023 14:21-0400 Systolic blood pressure 112 mm[Hg] Robbi Simmons MD Work Phone: [facility] 10-09-2023 14:45-0400 Body weight 124.29 kg Maria Isabel Plotts TAX AGENT.CNM Work Phone: [facility] 10-09-2023 14:45-0400 Diastolic blood pressure 64 mm[Hg] Maria Isabel Plotts TAX AGENT.CNM Work Phone: [facility] 10-09-2023 14:45-0400 Systolic blood pressure 112 mm[Hg] Maria Isabel Rodriguez TAX AGENT.CNM Work Phone: [facility] [place] 09-22-2023 10:17-0400 Body weight 123.38 kg Maria Isabel Rodriguez TAX AGENT.CNM Work Phone: [facility] 09-22-2023 10:17-0400 Diastolic blood pressure 80 mm[Hg] Maria Isabel Rodriguez TAX AGENT.CNM Work Phone: [facility] 09-22-2023 10:17-0400 Systolic blood pressure 122 mm[Hg] Maria Isabel Rodriguez TAX AGENT.CNM Work Phone: [facility] 09-21-2023 20:17-0400 Body height 162.56 cm [facility] 09-21-2023 20:17-0400 Body mass index (BMI) [Ratio] 47.5 kg/m2 [facility] 09-21-2023 20:17-0400 Body weight 125.64 kg [facility] 09-21-2023 20:07-0400 Diastolic blood pressure 63 mm[Hg] [facility] 09-21-2023 20:07-0400 Heart rate 116 /min [facility] 09-21-2023 20:07-0400 SaO2% (BldA) [Mass fraction] 96 % [facility] 09-21-2023 20:07-0400 Systolic blood pressure 120 mm[Hg] [facility] 09-15-2023 22:21-0500 Body temperature 98 [degF] [facility] 09-15-2023 22:21-0500 Diastolic blood pressure 57 mm[Hg] [facility] 09-15-2023 22:21-0500 Heart rate 110 /min [facility] 09-15-2023 22:21-0500 Respiratory rate 16 /min [facility] 09-15-2023 22:21-0500 Systolic blood pressure 116 mm[Hg] [facility] 09-15-2023 22:17-0500 Body height 162.56 cm [facility] 09-15-2023 22:17-0500 Body mass index (BMI) [Ratio] 47.6 kg/m2 [facility] 09-15-2023 22:17-0500 Body weight 125.87 kg [facility] 09-11-2023 14:31-0500 Body weight 123.29 kg Robbi Simmons MD Work Phone: [facility] 09-11-2023 14:31-0500 Diastolic blood pressure 70 mm[Hg] Robbi Simmons MD Work Phone: [facility] 09-11-2023 14:31-0500 Systolic blood pressure 120 mm[Hg] Robbi Simmons MD Work Phone: [facility] 08-14-2023 14:34-0500 Body weight 121.11 kg Maria Isabel Rodriguez TAX AGENT.CNM Work Phone: [facility] 08-14-2023 14:34-0500 Diastolic blood pressure 60 mm[Hg] Maria Isabel Plotts TAX AGENT.CNM Work Phone: [facility] 08-14-2023 14:34-0500 Systolic blood pressure 106 mm[Hg] Maria Isabel Rodriguez TAX AGENT.CNM Work Phone: [facility] Encounters Encounter Date Encounter Type Care Provider Facility Start: 04-15-2025 End: 04-15-2025 ambulatory SELF Facility:[id number] Start: 01-21-2025 End: 01-21-2025 ambulatory SELF Facility:[id number] Start: 01-21-2025 End: 01-21-2025 Patient encounter procedure Ethel Martin APRN.MAINTENANCE REPAIRER Work Phone: [facility] Comment on above: Contact dermatitis, unspecified contact dermatitis type, unspecified trigger (Primary Dx) Start: 07-25-2024 End: 12-12-2024 Telephone encounter Lia Wu APRN.CNP Work Phone: [facility] Start: 03-12-2024 End: 03-12-2024 E-mail encounter from caregiver Lia Wu APRN.CNP Work Phone: [facility] Start: 03-12-2024 End: 03-12-2024 Follow-up encounter Lia Valerie ROJOMAINTENANCE REPAIRER Work Phone: [facility] Comment on above: Actionable Finding F ollow up Start: 03-05-2024 ambulatory DOREEN SANTOS Facility:[facility] Start: 03-05-2024 End: 03-05-2024 Subsequent hospital visit by physician Kaylyn Ramirez MD Work Phone: [facility] Comment on above: History of biliary d uct stent placement [Z98.890] Start: 03-04-2024 End: 03-04-2024 Telephone encounter Kaylyn Ramirez MD Work Phone: [facility] Comment on above: Appointment (Spoke w ith patient and confirmed procedure arrival time 0730 for 0830 appointment. When you arrive please go to admitting/registration first, then you will be directed to the Endoscopy Dept.on the 2nd floor. If you have any questions about your appointment or your prep instructions please call [phone]. If you need to reschedule call [phone]. CECILIA Denton ) Start: 03-01-2024 End: 03-01-2024 Subsequent hospital visit by physician Tyrone Graves [address] GENERAL Comment on above: History of biliary d uct stent placement [Z98.890] Start: 02-27-2024 End: 02-27-2024 ambulatory Kaylyn Ramirez MD Work Phone: [facility] Start: 02-14-2024 Telephone encounter Kaylyn jacboo MD Work Phone: Gastroenterology Start: 02-13-2024 End: 02-13-2024 ambulatory JOANA HERNANDEZ Facility:[facility] Start: 02-13-2024 End: 02-13-2024 Patient encounter procedure Joana Hernandez MD Work Phone: General Surgery Comment on above: Gallstones (Primary Dx); History of acute pancreatitis; Other ascites Start: 02-12-2024 End: 02-12-2024 Patient encounter procedure Robbi Simmons MD Work Phone: OB/Gynecology Comment on above: care and examination (Primary Dx) Start: 02-12-2024 End: 02-12-2024 ambulatory ROBBI SIMMONS Facility:[facility] Start: 02-10-2024 End: 02-10-2024 ambulatory JOANA HERNANDEZ Facility:[facility] Start: 02-10-2024 End: 02-10-2024 Patient encounter procedure Joana Hernandez MD Work Phone: General Surgery Comment on above: Gallstones (Primary Dx); History of acute pancreatitis Start: 01-29-2024 Evaluation and management of inpatient OSMANY CHOWDARY Facility:[facility] Start: 01-29-2024 Telephone encounter Michele Sethi am, MD Work Phone: [facility] Adult Start: 01-22-2024 End: 01-22-2024 ambulatory JOANA HERNANDEZ Facility:[facility] Start: 01-12-2024 End: 01-12-2024 ambulatory ETHEL SAHNNON Facility:[facility] Start: 01-12-2024 End: 01-12-2024 Patient encounter procedure Ethel Shannon APRN.CNM Work Phone: OB/Gynecology Comment on above: Postop check (Primar y Dx) Start: 01-06-2024 ambulatory Robbi Borges Work Phone: OB/Gynecology Comment on above: Ob Delivery Note Start: 01-04-2024 End: 01-07-2024 Evaluation and management of inpatient No Primary Care Physician Facility:[facility] Start: 01-01-2024 End: 01-01-2024 Patient encounter procedure Junior Rivas APRN.MAINTENANCE REPAIRER Work Phone: OB/Gynecology Comment on above: Encounter for superv ision of high risk in third trimester, antepartum (Primary Dx); 38 weeks gestation of ; Obesity affecting in third trimester, unspecified obesity type; History of chlamydia; Anemia complicating , third trimester Start: 01-01-2024 Telephone encounter Junior sandhu APRN.MAINTENANCE REPAIRER Work Phone: OB/Gynecology Comment on above: Orders Start: 01-01-2024 End: 01-01-2024 Admission to establishment Pacc Florencio 1 Work Phone: Pre Anesthesia Start: 01-01-2024 End: 01-01-2024 ambulatory JUNIOR RIVAS Facility:[facility] Start: 01-01-2024 End: 01-01-2024 Anesthesia consultation Pac [place] 1 Work Phone: Pre Anesthesia Comment on above: Preoperative examina tion (Primary Dx); , GI problems, third trimester; Acute gallstone pancreatitis; Obesity affecting in third trimester, unspecified obesity type; Iron deficiency anemia, unspecified iron deficiency anemia type Start: 01-01-2024 End: 01-01-2024 Preprocedural examination done Pac [place] 1 Work Phone: [facility] Work Phone: Start: 12-28-2023 ambulatory Raquel Pedrovictorino [facility] Start: 12-28-2023 Patient encounter procedure [facility] Comment on above: Population Health Na vigation Outreach (OB/PEDS) Start: 12-25-2023 End: 12-25-2023 Patient encounter procedure Adal Gomez MD Work Phone: OB/Gynecology Comment on above: Supervision of high risk in third trimester (Primary Dx); Obesity affecting in third trimester, unspecified obesity type; 37 weeks gestation of ; Vaginal pruritus Start: 12-25-2023 End: 12-25-2023 ambulatory ADAL GOMEZ Facility:[facility] Start: 12-18-2023 End: 12-18-2023 ambulatory ROBBI SIMMONS Facility:[facility] Start: 12-18-2023 End: 12-18-2023 Patient encounter procedure Robbi Simmons MD Work Phone: OB/Gynecology Comment on above: 36 weeks gestation o f (Primary Dx); Supervision of high risk in third trimester; Obesity affecting in third trimester, unspecified obesity type Encounter for ultras ound to check growth (Primary Dx); Late care affecting in second trimester; Obesity affecting in third trimester, unspecified obesity type; 36 weeks gestation of Start: 12-11-2023 End: 12-11-2023 Patient encounter procedure Ethel Shannon APRN.CNM Work Phone: OB/Gynecology Comment on above: 35 weeks gestation o f (Primary Dx); Supervision of high risk in third trimester; Urinary tract infection in mother during third trimester of ; Acute gallstone pancreatitis; Chlamydia infection affecting in first trimester; PTSD (post-traumatic stress disorder); Obesity affecting in third trimester, unspecified obesity type; with uncertain dates in third trimester; Anemia during in third trimester Start: 12-07-2023 End: 12-07-2023 Evaluation and management of inpatient MILTON GLADIS Facility:[facility] Start: 12-05-2023 End: 12-05-2023 Patient encounter procedure Joana Hernandez MD Work Phone: General Surgery Comment on above: 32 weeks gestation o f ; History of acute pancreatitis; Gallstones Start: 11-27-2023 End: 11-27-2023 Patient encounter procedure Ericka Reyna MD Work Phone: OB/Gynecology Comment on above: Supervision of high risk in third trimester (Primary Dx); Obesity affecting in third trimester, unspecified obesity type; 33 weeks gestation of Start: 11-21-2023 Telephone encounter Robbi huber MD Work Phone: OB/Gynecology Comment on above: Appointment Start: 11-20-2023 End: 11-20-2023 Patient encounter procedure Robbi Simmons MD Work Phone: OB/Gynecology Comment on above: Encounter for superv ision of normal first in third trimester (Primary Dx); Obesity affecting in third trimester, unspecified obesity type; 32 weeks gestation of ; History of acute pancreatitis; Gallstones Encounter for ultras ound to check growth (Primary Dx); Late care affecting in second trimester; Obesity affecting in third trimester, unspecified obesity type; 32 weeks gestation of Start: 11-17-2023 End: 11-17-2023 Evaluation and management of inpatient [facility] Facility:[facility] Start: 11-16-2023 End: 11-17-2023 ambulatory Robbi Simmons [facility] Work Phone: Start: 11-16-2023 End: 11-17-2023 Patient encounter procedure [facility] Triage Work Phone: Start: 11-10-2023 Telephone encounter Maria Isabel melchor APRN.CNM Work Phone: OB/Gynecology Comment on above: OB No movement , abdominal pain Start: 11-10-2023 End: 11-10-2023 Patient encounter procedure Maria Isabel Rodriguez APRN.CNHussein Work Phone: OB/Gynecology Comment on above: Encounter for superv ision of normal first in third trimester (Primary Dx); Obesity affecting in third trimester, unspecified obesity type; 31 weeks gestation of ; Decreased movements in third trimester, single or unspecified fetus Start: 11-06-2023 End: 11-06-2023 Patient encounter procedure Maria Isabel Rodriguez APRN.CNHussein Work Phone: OB/Gynecology Comment on above: 30 weeks gestation o f (Primary Dx); Encounter for supervision of normal first in second trimester; Late care affecting in second trimester; Obesity affecting in third trimester, unspecified obesity type Start: 10-23-2023 End: 10-23-2023 Patient encounter procedure Robbi Simmons MD Work Phone: OB/Gynecology Comment on above: 28 weeks gestation o f (Primary Dx); Encounter for supervision of normal first in second trimester; Late care affecting in second trimester; Need for vaccination; Obesity affecting in third trimester, unspecified obesity type Start: 10-09-2023 End: 10-09-2023 Patient encounter procedure Maria Isabel Rodriguez APRN.CNHussein Work Phone: OB/Gynecology Comment on above: Late care a ffecting in second trimester (Primary Dx); Encounter for supervision of normal first in second trimester; 26 weeks gestation of ; Chlamydia contact, treated; Obesity affecting in second trimester, unspecified obesity type Start: 09-22-2023 End: 09-22-2023 Patient encounter procedure Maria Isabel Rodriguez APRN.CNM Work Phone: OB/Gynecology Comment on above: 24 weeks gestation o f (Primary Dx); Late care affecting in second trimester; Encounter for supervision of normal first in second trimester Start: 09-21-2023 End: 09-21-2023 ambulatory Robbi Simmons [facility] Work Phone: Start: 09-21-2023 End: 09-21-2023 Patient encounter procedure [facility] Work Phone: Start: 09-15-2023 End: 09-15-2023 ambulatory Manda Oconnor [facility] Work Phone: Start: 09-15-2023 End: 09-15-2023 Patient encounter procedure [facility] Work Phone: Start: 09-13-2023 Telephone encounter Maria Isabel melchor APRN.CNHussein Work Phone: OB/Gynecology Comment on above: STD Start: 09-11-2023 End: 09-11-2023 Patient encounter procedure Robbi Simmons MD Work Phone: OB/Gynecology Comment on above: 22 weeks gestation o f (Primary Dx); Late care affecting in second trimester; Encounter for supervision of normal first in second trimester; Vaginal discharge Start: 08-30-2023 End: 08-30-2023 Patient encounter procedure Admitting [facility] Work Phone: OB/Gynecology Comment on above: Encounter for follow -up ultrasound of anatomy (Primary Dx); 21 weeks gestation of Start: 08-14-2023 End: 08-14-2023 Patient encounter procedure Maria Isabel Rodriguez APRN.CNM Work Phone: OB/Gynecology Comment on above: 18 weeks gestation o f (Primary Dx); Obesity affecting in second trimester, unspecified obesity type; Late care affecting in second trimester; Nausea/vomiting in ; Anxiety Start: 08-14-2023 Telephone encounter Junior sandhu APRN.CNP Work Phone: OB/Gynecology Comment on above: Results; Orders Start: 04-06-2023 End: 04-06-2023 Emergency department patient visit EDWIGE MACIEL MD Facility:[facility] Start: 08-16-2021 End: 08-16-[address]A [facility] Start: 08-20-2020 End: 08-20-2020 Emergency department patient visit CHRISTIAN QUIJANO [facility] Procedures Date Procedure Procedure Detail Performing Clinician Start: 03-05-2024 Ercp dx collection s pecimen brushing/washing Kaylyn Ramirez MD Work Phone: Start: 01-31-2024 Antibody screen NICOLAS Comment on above: Order Comment: Speci men Type: BLOOD SPECIMENOrdering Facility: [facility] Address: [address] [place] [address] Performed By: #### T SCR ####[facility] [id number] [address] OF [place] Start: 01-01-2024 URINE OB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 Patients: Red Patients: New patients (AND nights/weekends): [phone] [facility] 02-01-2024 Note HNO ID: [id number] Author: JOSSUE SHERIFF PA-C Service: Gastroenterology Author Type: Physician Store Custodian Type: Plan of Care Filed: 02/01/2024 09:37 Note Text: GI plan of care note: February 01, 2024 Patient: Adilene Thurman Medical Record: [id number] GI following for ascites, recent GS pancreatitis, s/p lap pk. Chart reviewed. Yesterday patient underwent diagnostic laparotomy with finding of large volume intraperitoneal bile (2.5L prior to saline washing), cystic stump with two hemolocks still attached secured with endoloop; posterior branch of cystic artery coursing along cystic plate hemostatic but two clips were placed. Round ANTONIO drain placed in gallbladder fossa. VSS. Labs today with no leukocytosis, and improving T Bili 1.9>1.0 and Alk Phos 274>203. General surgery following. Continue PPI. Patient will need repeat ERCP in 3 months for stent removal (Dr Ramirez to arrange). GI will sign off at this time. Please don't hesitate to call us back with any further questions or concerns. Jossue Sheriff PA-C February 01, 2024 9:30 AM Gastroenterology and Hepatology [facility] 02-01-2024 Note HNO ID: [id number] Author: LIANE SALES DO Service: Hospital Medicine Author Type: Physician Type: Progress Notes Filed: 02/01/2024 17:14 Note Text: DEPARTMENT OF HOSPITAL MEDICINE PROGRESS NOTE SERVICE DATE: 02/01/2024 SERVICE TIME: 8:15 AM Hospital Medicine/Primary Attending: Liane Sales DO Subjective INTERVAL HPI: Yesterday, underwent diagnostic laparoscopy with Gen Surg with placement of ANTONIO drain. 585 mL output from ANTONIO drain noted yesterday. When seen on rounds, patient reports that she is feeling significantly improved. She states her abdominal pain is better. She states her appetite is improving and she is having bowel movements. She denies any fevers or chills. Current Facility-Administered Medications Medication Dose Route Frequency NaCl 0.9% iv flush bag 20 mL INTRAVENOUS PRN ondansetron 4 mg tab(s) (ZOFRAN) 4 mg ORAL q 6 H PRN Or ondansetron (PF) 4 mg injection (ZOFRAN) 4 mg INTRAVENOUS q 6 H PRN melatonin 3 mg tab(s) 3 mg ORAL DAILY (8 PM) piperacillin-tazobactam iv piggyback 3.375 g in dextrose (iso-osmotic) 50 mL (ZOSYN) 3.375 g INTRAVENOUS q 6 H acetaminophen 1,000 mg tab(s) (TYLENOL) 1,000 mg ORAL q 8 H PRN oxyCODONE IR 5 mg tab(s) (ROXICODONE) 5 mg ORAL q 6 H PRN HYDROmorphone 0.5 mg injection (DILAUDID) 0.5 mg INTRAVENOUS q 3 H PRN Objective PHYSICAL EXAM: BP 122/64 Pulse 94 Temp (Src) 97.9 (Oral) Resp 16 Ht 5' 5 (1.65m) Wt 266 lb (120.7kg) SpO2 93% LMP 04/06/2023 BMI 44.26 kg/(m2). O2 Therapy: Room Air, Liters: 4.00 Physical Exam Performed General: Well-appearing, no acute distress Lungs: Clear to auscultation Cardiac: Regular rate and rhythm, no murmurs appreciated Abdomen: ANTONIO drain in place in right upper quadrant. Recent laparoscopic incisions noted. Slightly tender to palpation in right upper quadrant but improved from prior. Soft abdomen. Extremities: No edema noted Lines, Drains, and Airways Line Duration Peripheral 01/29/24 2100 [facility] Short Right Forearm 22 Gauge 2 days Peripheral 01/31/24 1653 Left Wrist 22 Gauge <1 day Peripheral 01/31/24 1653 Right Hand 20 Gauge <1 day Drain Duration Drain/Tube 01/31/24 1830 [facility] Vance Right Upper Quadrant <1 day DATA: Diagnostic tests reviewed for today's visit: Most recent labs Most recent imaging Assessment/Plan Problem List Intractable generalized abdominal pain (POA: Yes) History of posttraumatic stress disorder (PTSD) (POA: Yes) Anxiety (POA: Yes) Postoperative abdominal pain (POA: Yes) Other ascites (POA: Yes) Bile leak (POA: Status not on file) HOSPITAL COURSE: Adilene Thurman is a 18 year old female with past medical history of gallstone pancreatitis s/p laparoscopic cholecystectomy (01/22/24), 3 weeks post ( delivery) who presented to [facility] on 01/27 for evaluation of RUQ abd pain. Pt transferred to [place] for further management. #Biliary leak # RUQ abdominal pain # Ascites -Pt with hx of gallstone pancreatitis s/p laparoscopic cholecystectomy (01/22/24) -Relevant labs on admission: Lipase normal at 30, T Bili slightly elevated at 1.7, AST 23, ALT 87. No leukocytosis -CT Ab/pelvis: 01/28/24: Moderate to large ascites, indeterminate etiology. Recommend pelvic with Doppler ultrasound to assess the ovaries and exclude the likelihood of loculation of fluid posterior to the uterus extending to cul-de-sac. There is subtle nodularity in the fat adjacent to the proximal descending colon likely due to edema. Short-term follow-up is recommended to exclude omental caking - Patient went for HIDA scan with evidence of biliary leak of relatively large volume. -Appreciate GI assistance with management. - Patient subsequently underwent ERCP on 01/29 with findings of dilated main bile duct, bile leak, choledocholithiasis. Complete removal was accomplished by biliary sphincterotomy and balloon extraction. Plastic stent placed in the common bile duct -On 01/30, patient underwent diagnostic laparoscopy with general surgery with findings of large volume intraperitoneal bile with placement of ANTONIO drain in gallbladder fossa. Fluid was sent for culture Plan: -Clear liquids today per general surgery -Continue to monitor output from ANTONIO drain -Will continue Zosyn for empiric coverage given biliary leak. Follow cultures from ascites fluid. -Continue with pain management with Tylenol and Dilaudid for breakthrough pain -Avoid aspirin and NSAIDs for 2 weeks per GI recs #DARLINE -Holding home iron #Lung nodule -Chest x-ray from 01/30: Finding: Indeterminant appearing incidentally detected nodular lung density on CXR - Recommendation: XR CHEST 2V FRONTAL/LAT Time Frame: 4-6 weeks Medication and Non-Pharmacologic VTE Prophylaxis/Anticoagulants VTE Prophylaxis: VTE prophylaxis appropriate Disposition: To be determined Plan of care discussed with Provider, RN, Patient SIGNA (more content not included)... [facility] 01-31-2024 Note HNO ID: [id number] Author: BELLE DIMAS MD Service: General Surgery Author Type: Resident Type: Plan of Care Filed: 01/31/2024 18:56 Note Text: Name: Adilene Thurman Time: 6:54 PM General Surgery Plan of Care Note Ms. Thurman is currently status post diagnostic laparoscopy with wash out of large volume intraperitoneal bile and placement of ANTONIO drain with Dr. Young (01/31/24). - Okay for clears tonight - Continue pain control - Continue antibiotics; follow culture sent from OR Rest of care per primary Belle Dimas MD General Surgery Resident, PGY-3 [phone] [facility] 01-31-2024 Note HNO ID: [id number] Author: ILEANA MARTINO MD Service: Anesthesiology Author Type: Physician Type: Anesthesia Procedure Notes Filed: 01/31/2024 20:29 Note Text: ANESTHESIOLOGY PROCEDURE NOTE PIV General Information Procedure Start Time/Medication Administration: 01/31/2024 4:53 PM Procedure End Time: 01/31/2024 4:53 PM Patient Location: OR Staffing Anesthesiologist: Ileana Martino MD Performed by: anesthesiologist Preparation Sterility Preparation: hand hygiene performed prior to procedure, surgical cap used, mask used Site Prep: Chloraprep Procedure Details Indication: need for IV access Needle Size/Type: 22 gauge angiocath Orientation: Left Location: Hand Imaging Guidance Used: No SIGNATURE: Tracey Givens APRN.CRNA PATIENT NAME: Adilene Thurman DATE: January 31, 2024 TIME: 5:27 PM CSN: [id number] [facility] 01-31-2024 Note HNO ID: [id number] Author: TRACEY GIVENS APRN.CRNA Service: Anesthesiology Author Type: Nurse News Copy Editor Type: Anesthesia Procedure Notes Filed: 01/31/2024 17:27 Note Text: ANESTHESIOLOGY PROCEDURE NOTE PIV General Information Procedure Start Time/Medication Administration: 01/31/2024 4:53 PM Procedure End Time: 01/31/2024 4:53 PM Patient Location: OR Staffing EQUIPMENT MONITOR PHOTOTYPESETTING: Tracey Givens APRN.EQUIPMENT MONITOR PHOTOTYPESETTING Performed by: EQUIPMENT MONITOR PHOTOTYPESETTING Preparation Sterility Preparation: hand hygiene performed prior to procedure, surgical cap used, mask used Site Prep: Chloraprep Procedure Details Indication: need for IV access Needle Size/Type: 20 gauge angiocath Orientation: Right Location: Hand Imaging Guidance Used: No SIGNATURE: Tracey Givens APRN.CRNA PATIENT NAME: Adilene Thurman DATE: January 31, 2024 TIME: 5:24 PM CSN: [id number] [facility] 01-31-2024 Note HNO ID: [id number] Author: TRACEY GIVENS APRN.CRNA Service: Anesthesiology Author Type: Nurse News Copy Editor Type: Anesthesia Procedure Notes Filed: 01/31/2024 17:24 Note Text: ANESTHESIOLOGY PROCEDURE NOTE Airway General Information Procedure Start Time/Medication Administration: 01/31/2024 4:47 PM Procedure End Time: 01/31/2024 4:47 PM Patient location during procedure: OR Timeout Performed Pre-procedure: timeout performed Consent Obtained: Yes Patient identity confirmed: arm band and patient Staffing Anesthesiologist: Ileana Martino MD EQUIPMENT MONITOR PHOTOTYPESETTING: Tracey Givens APRN.EQUIPMENT MONITOR PHOTOTYPESETTING Performed by: SREE Indications and Patient Condition Indications for airway management: anesthesia Preoxygenated: yes anesthesia circuit Patient position: sniffing Method: asleep Cricoid Pressure: No Manual In-Line Stabilization: No Difficult Mask: No Final Airway Details Final airway type: endotracheal airway Final Endotracheal Airway: ETT Cuffed: yes Successful intubation technique: video laryngoscopy Devices used: [employer] Endotracheal tube insertion site: oral Blade: Bradley Blade size: #4 ETT size (mm): 7.0 Measured from: lips Measurement (cm): 19 Placement verified by: chest auscultation and capnometry Cormack-Lehane Classification: grade I - full view of glottis Number of attempts at approach: 1 Failed airway: no Unrecognized esophageal intubation: no Airway not difficult SIGNATURE: Tracey Givens APRN.CRNA PATIENT NAME: Adilene Thurman DATE: January 31, 2024 TIME: 5:23 PM CSN: [id number] [facility] 01-31-2024 Note HNO ID: [id number] Author: LIANE SALES DO Service: Hospital Medicine Author Type: Physician Type: Progress Notes Filed: 01/31/2024 11:42 Note Text: DEPARTMENT OF HOSPITAL MEDICINE PROGRESS NOTE SERVICE DATE: 01/31/2024 SERVICE TIME: 7:14 AM Hospital Medicine/Primary Attending: Liane Sales, Subjective INTERVAL HPI: Yesterday found to have bile leak on HIDA scan. Underwent ERCP with GI w/ stenting of the common bile duct. Vitals: Afebrile, HR improved, BP stable, did get started on O2 (now on 3 L). When seen at bedside this morning, patient reports that her abdominal pain is somewhat improved. She is now complaining of left shoulder pain. She denies any injuries to this area. No chest pain or shortness of breath. No fevers or chills. She denies any bowel movements. Current Facility-Administered Medications Medication Dose Route Frequency NaCl 0.9% iv flush bag 20 mL INTRAVENOUS PRN lactated ringers iv infusion 100 mL/hr INTRAVENOUS CONTINUOUS ondansetron 4 mg tab(s) (ZOFRAN) 4 mg ORAL q 6 H PRN Or ondansetron (PF) 4 mg injection (ZOFRAN) 4 mg INTRAVENOUS q 6 H PRN melatonin 3 mg tab(s) 3 mg ORAL DAILY (8 PM) piperacillin-tazobactam iv piggyback 3.375 g in dextrose (iso-osmotic) 50 mL (ZOSYN) 3.375 g INTRAVENOUS q 6 H lactated ringers iv infusion 75 mL/hr INTRAVENOUS CONTINUOUS acetaminophen 1,000 mg tab(s) (TYLENOL) 1,000 mg ORAL q 8 H PRN oxyCODONE IR 5 mg tab(s) (ROXICODONE) 5 mg ORAL q 6 H PRN HYDROmorphone 0.5 mg injection (DILAUDID) 0.5 mg INTRAVENOUS q 3 H PRN Objective PHYSICAL EXAM: BP 123/80 Pulse 95 Temp (Src) 97.5 (Axillary) Resp 18 Ht 5' 5 (1.65m) Wt 248 lb (112.5kg) SpO2 96% LMP 04/06/2023 BMI 41.27 kg/(m2). O2 Therapy: Nasal Cannula, Liters: 3.00 Physical Exam Performed General: Seated in chair, no acute distress Neuro: Slow to answer questions, somewhat staccato speech but neurologically intact Cardiac: Tachycardic, no murmurs appreciated Lungs: Clear to auscultation Abdomen: Obese, bowel sounds present, soft, tender to palpation over left abdomen.. Laparoscopic incision wounds noted. Extremities: Warm and dry, no edema Lines, Drains, and Airways Line Duration Peripheral 01/29/24 [facility] Short Right Forearm 20 Gauge 1 day Patient does not currently have any lines, drains or airways. DATA: Diagnostic tests reviewed for today's visit: Most recent labs Most recent imaging Assessment/Plan Problem List Intractable generalized abdominal pain (POA: Yes) History of posttraumatic stress disorder (PTSD) (POA: Yes) Anxiety (POA: Yes) Postoperative abdominal pain (POA: Yes) Other ascites (POA: Yes) HOSPITAL COURSE: Adilene Thurman is a 18 year old female with past medical history of gallstone pancreatitis s/p laparoscopic cholecystectomy (01/22/24), 3 weeks post ( delivery) who presented to [facility] on 01/27 for evaluation of RUQ abd pain. Pt transferred to [place] for further management. #Biliary leak # RUQ abdominal pain # Ascites -Pt with hx of gallstone pancreatitis s/p laparoscopic cholecystectomy (01/22/24) -Relevant labs on admission: Lipase normal at 30, T Bili slightly elevated at 1.7, AST 23, ALT 87. No leukocytosis -CT Ab/pelvis: 01/28/24: Moderate to large ascites, indeterminate etiology. Recommend pelvic with Doppler ultrasound to assess the ovaries and exclude the likelihood of loculation of fluid posterior to the uterus extending to cul-de-sac. There is subtle nodularity in the fat adjacent to the proximal descending colon likely due to edema. Short-term follow-up is recommended to exclude omental caking - Patient went for HIDA scan with evidence of biliary leak of relatively large volume. -Appreciate GI assistance with management. - Patient subsequently underwent ERCP with findings of dilated main bile duct, bile leak, choledocholithiasis. Complete removal was accomplished by biliary sphincterotomy and balloon extraction. Plastic stent placed in the common bile duct Plan: -Planning for diagnostic laparoscopy with washout and drain placement today with general surgery -Keep n.p.o. -Appreciate gastroenterology input -Will continue Zosyn for empiric coverage given biliary leak -Continue with pain management with Tylenol and Dilaudid for breakthrough pain -Avoid aspirin and NSAIDs for 2 weeks per GI recs #New oxygen requirement -Chest x-ray obtained showing mild patchy opacity in the left lung base, likely atelectasis Plan: -Wean oxygen as able -Incentive spirometry #DARLINE -Holding home iron #Lung nodule -Chest x-ray from 01/30: Finding: Indeterminant appearing incidentally detected nodular lung density on CXR - Recommendation: XR CHEST 2V FRONTAL/LAT Time Frame: 4-6 weeks Medication and Non-Pharmacologic VTE Prophylaxis/Anticoagulants VTE Prophylaxis: VTE prophylaxis appropriate Disposition: To be determined P (more content not included)... [facility] 01-30-2024 Note HNO ID: [id number] Author: LIBORIO MATAMOROS, SHERRI Service: ? Author Type: Registered Nurse Type: Nursing Progress Note Filed: 01/30/2024 16:18 Note Text: MD at bedside updating pt [facility] 01-30-2024 Note HNO ID: [id number] Author: JOSSUE KIRBY APRN.CNP Service: Gastroenterology Author Type: Nurse Practitioner Type: Plan of Care Filed: 01/30/2024 16:19 Note Text: Brief GI POC: S/p ERCP 01/[address] Ramirez Impression: - Biliary papillary stenosis, benign. - The entire main bile duct was mildly dilated, acquired. - A bile leak was found. - The patient has had a cholecystectomy. - Choledocholithiasis was found. Complete removal was accomplished by biliary sphincterotomy and balloon extraction. - A biliary sphincterotomy was performed. - The biliary tree was swept. - One plastic stent was placed into the common bile duct. Recommendation: -CLD - Avoid aspirin and nonsteroidal anti-inflammatory medicines for 2 weeks. - Observe patient's clinical course. - Return patient to hospital [place] for ongoing care. -repeat CBC, CMP in am -Will follow along Jossue Kirby CNP Gastroenterology [phone] [facility] 01-30-2024 Note HNO ID: [id number] Author: DEANA MARTINI APRN.CRNA Service: Anesthesiology Author Type: Nurse News Copy Editor Type: Anesthesia Procedure Notes Filed: 01/30/2024 15:12 Note Text: ANESTHESIOLOGY PROCEDURE NOTE Airway General Information Procedure Start Time/Medication Administration: 01/30/2024 3:02 PM Procedure End Time: 01/30/2024 3:05 PM Patient location during procedure: OR Timeout Performed Pre-procedure: timeout performed Consent Obtained: Yes Patient identity confirmed: arm band, care meat team member and patient Staffing EQUIPMENT MONITOR PHOTOTYPESETTING: Deana Martini APRN.EQUIPMENT MONITOR PHOTOTYPESETTING Performed by: anesthesiologist and EQUIPMENT MONITOR PHOTOTYPESETTING Indications and Patient Condition Indications for airway management: anesthesia Preoxygenated: yes anesthesia circuit Patient position: sniffing Method: asleep Cricoid Pressure: No Manual In-Line Stabilization: No Difficult Mask: No Final Airway Details Final airway type: endotracheal airway Final Endotracheal Airway: ETT Cuffed: yes Successful intubation technique: video laryngoscopy Devices used: [employer] Endotracheal tube insertion site: oral ETT size (mm): 7.5 Measured from: lips Measurement (cm): 19 Placement verified by: chest auscultation and capnometry Cormack-Lehane Classification: grade I - full view of glottis Number of attempts at approach: 1 Airway not difficult SIGNATURE: Deana Martini APRN.EQUIPMENT MONITOR PHOTOTYPESETTING PATIENT NAME: Adilene Thurman DATE: January 30, 2024 TIME: 3:12 PM CSN: [id number] [facility] 01-30-2024 Note HNO ID: [id number] Author: LELE PARKER RN Service: Care Management Author Type: Registered Nurse Type: Care Mgt Initial Assessment Filed: 01/30/2024 12:45 Note Text: CARE MANAGEMENT: ASSESSMENT AND DISCHARGE PLAN SERVICE DATE: January 30, 2024 SERVICE TIME: 12:41 PM PCP: No primary care provider on file. Primary Contact: Extended Emergency Contact Information Primary Emergency Contact: ThurmanYanira Mobile Relation: Mother Secondary Emergency Contact: Can Thurman Mobile Relation: Father Admission Status: Inpatient Insurance Provider: [facility] Discharge Planning requested by: Attending Provider Potential Transition Plans Home Advance Directives Current Advance Directive: None Buckle Sewer Machine Attempted to Assist with AD Completion: Yes Action: Patient Unwilling Current Living Arrangements and Support Lives with: Parent Type of Residence: Private Residence (House) Support: Parent How do you manage to accomplish the following: Independent: Ambulation;Bathe/Shower;Transportatio n to appointments/community;Dress;Meals/Me al Prep;Going to the bathroom;Medication Management Current Services/Equipment Current Post-Acute Service(s): None Discharge Planning Patient Goal(s): Less pain Tyler of Choice Explained: Tyler of Choice Given: No Reason Not Given: No placements necessary Are you interested in bedside delivery of your medications? Yes Discharge Planning Participant(s): Patient Patient/Family Comments: Caregiver Assessment: Caregiver is ready, willing and able to meet the patient's needs as recommended by the inter-professional team: No Caregiver needed Transport at Discharge: Transportation Arrangements: Car Needs Prior to Discharge: Needs Prior to Discharge: Other: See Comment (medical clearance) Post-Acute Discharge Plan: Patient is a 18 year old female that was admitted to [facility] due to abdominal pain. Patient recently had a baby and her gall bladder removed. She states she is usually independent with adl's. 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 She lives with her parents. She states one of her [place]. SIGNATURE: Lele Parker RN PATIENT NAME: Adilene Thurman DATE: January 30, 2024 TIME: 12:41 PM CONTACT #: [phone] [facility] 01-30-2024 Note HNO ID: [id number] Author: CHUY BOWLES PA-C Service: Interventional Radiology Author Type: Physician Store Custodian Type: Plan of Care Filed: 01/30/2024 08:30 Note Text: PLAN OF CARE Patient brought down to IR for paracentesis. On evaluation patient is in a significant amount of pain and unable for head of bed to go below 60 degrees. Described procedure - will need to use ultrasound probe to evaluate ascites and additionally may feel pressure from the probe and needle entrance. Patient states she will not be able to tolerate. Can consider bringing back down when pain is under better control vs performing with sedation. Chuy Bowles PA-C Interventional Radiology [facility] 01-30-2024 Note HNO ID: [id number] Author: LIANE SALES DO Service: Hospital Medicine Author Type: Physician Type: Progress Notes Filed: 01/30/2024 18:33 Note Text: DEPARTMENT OF HOSPITAL MEDICINE PROGRESS NOTE SERVICE DATE: 01/30/2024 SERVICE TIME: 7:34 AM Hospital Medicine/Primary Attending: Liane Sales DO Subjective INTERVAL HPI: When seen at bedside this morning patient was very uncomfortable complaining of severe abdominal pain, mostly in the right side. Also nauseous. Currently n.p.o. Denied any fevers or chills. Patient went for HIDA scan with evidence of biliary leak of relatively large volume. Appreciate GI assistance with management. Patient subsequently underwent ERCP with findings of dilated main bile duct, bile leak, choledocholithiasis. Complete removal was accomplished by biliary sphincterotomy and balloon extraction. Plastic stent placed in the common bile duct. Current Facility-Administered Medications Medication Dose Route Frequency NaCl 0.9% iv flush bag 20 mL INTRAVENOUS PRN lactated ringers iv infusion 100 mL/hr INTRAVENOUS CONTINUOUS ondansetron 4 mg tab(s) (ZOFRAN) 4 mg ORAL q 6 H PRN Or ondansetron (PF) 4 mg injection (ZOFRAN) 4 mg INTRAVENOUS q 6 H PRN melatonin 3 mg tab(s) 3 mg ORAL DAILY (8 PM) piperacillin-tazobactam iv piggyback 3.375 g in dextrose (iso-osmotic) 50 mL (ZOSYN) 3.375 g INTRAVENOUS q 6 H oxyCODONE-acetaminophen 7.5-325 mg 1 tablet (PERCOCET) 1 tablet ORAL q 6 H PRN HYDROmorphone 0.5 mg injection (DILAUDID) 0.5 mg INTRAVENOUS q 3 H PRN Objective PHYSICAL EXAM: BP 139/82 Pulse 116 Temp (Src) 98.6 (Oral) Resp 16 Ht 5' 5 (1.65m) Wt 248 lb (112.5kg) SpO2 92% LMP 04/06/2023 BMI 41.27 kg/(m2). O2 Therapy: Room Air Physical Exam Performed General: Lying in bed, uncomfortable appearing Neuro: Slow to answer questions but neurologically intact Cardiac: Tachycardic, no murmurs appreciated Lungs: Clear to auscultation Abdomen: Obese, bowel sounds present, soft but very tender to palpation on right upper quadrant. Laparoscopic incision wounds noted. Extremities: Warm and dry, no edema Lines, Drains, and Airways Line Duration Peripheral 01/29/24 [facility] Short Right Forearm 20 Gauge <1 day Patient does not currently have any lines, drains or airways. DATA: Diagnostic tests reviewed for today's visit: Most recent labs Most recent imaging Assessment/Plan Problem List Intractable generalized abdominal pain (POA: Yes) History of posttraumatic stress disorder (PTSD) (POA: Yes) Anxiety (POA: Yes) Postoperative abdominal pain (POA: Yes) Other ascites (POA: Yes) HOSPITAL COURSE: Adilene Thurman is a 18 year old female with past medical history of gallstone pancreatitis s/p laparoscopic cholecystectomy (01/22/24), 3 weeks post ( delivery) who presented to [facility] on 01/27 for evaluation of RUQ abd pain. Pt transferred to [place] for further management. #Biliary leak # RUQ abdominal pain # Ascites -Pt with hx of gallstone pancreatitis s/p laparoscopic cholecystectomy (01/22/24) -Relevant labs on admission: Lipase normal at 30, T Bili slightly elevated at 1.7, AST 23, ALT 87. No leukocytosis -CT Ab/pelvis: 01/28/24: Moderate to large ascites, indeterminate etiology. Recommend pelvic with Doppler ultrasound to assess the ovaries and exclude the likelihood of loculation of fluid posterior to the uterus extending to cul-de-sac. There is subtle nodularity in the fat adjacent to the proximal descending colon likely due to edema. Short-term follow-up is recommended to exclude omental caking - Patient went for HIDA scan with evidence of biliary leak of relatively large volume. -Appreciate GI assistance with management. - Patient subsequently underwent ERCP with findings of dilated main bile duct, bile leak, choledocholithiasis. Complete removal was accomplished by biliary sphincterotomy and balloon extraction. Plastic stent placed in the common bile duct Plan: -Clear liquid diet -Appreciate gastroenterology input -Will continue Zosyn for empiric coverage given biliary leak -Continue with pain management with Tylenol and Dilaudid for breakthrough pain -Avoid aspirin and NSAIDs for 2 weeks per GI recs Medication and Non-Pharmacologic VTE Prophylaxis/Anticoagulants VTE Prophylaxis: VTE prophylaxis appropriate Disposition: To be determined Plan of care discussed with Provider, RN, Patient SIGNATURE: Liane Sales DO PATIENT NAME: Adilene Thurman DATE: January 30, 2024 TIME: 7:34 AM [facility] 01-29-2024 Telephone encounter Note Patient is a 18-year-old lady presented to the ED complaining of right upper quadrant pain. She had 3 weeks ago and lap pk about a week ago at [place]. Labs showed elevated ALP and total bilirubin. CT abdomen/pelvis showed moderate to large ascites, indeterminate etiology. General surgery at [place] recommended ERCP and transfer to [place]. Requested ED physician to talk to GI before sending patient to [place]. Received call from transfer center, stating that ED physician spoke to GI who is agreeable for transfer to [place] for further evaluation and management. [facility] Work Phone: 01-29-2024 Miscellaneous Notes Patient is a 18-year-old lady presented to the ED complaining of right upper quadrant pain. She had 3 weeks ago and lap pk about a week ago at [place]. Labs showed elevated ALP and total bilirubin. CT abdomen/pelvis showed moderate to large ascites, indeterminate etiology. General surgery at [place] recommended ERCP and transfer to [place]. Requested ED physician to talk to GI before sending patient to [place]. Received call from transfer center, stating that ED physician spoke to GI who is agreeable for transfer to [place] for further evaluation and management. documented in this encounter [facility] 01-22-2024 Note HNO ID: [id number] Author: STAN WALTON APRN.EQUIPMENT MONITOR PHOTOTYPESETTING Service: Anesthesiology Author Type: Nurse News Copy Editor Type: Anesthesia Procedure Notes Filed: 01/22/2024 07:53 Note Text: ANESTHESIOLOGY PROCEDURE NOTE Airway General Information Procedure Start Time/Medication Administration: 01/22/2024 7:37 AM Procedure End Time: 01/22/2024 7:37 AM Patient location during procedure: OR Timeout Performed Pre-procedure: timeout performed Consent Obtained: Yes Patient identity confirmed: arm band and patient sedated or unresponsive Staffing Performed by: EQUIPMENT MONITOR PHOTOTYPESETTING Indications and Patient Condition Indications for airway management: anesthesia Preoxygenated: yes anesthesia circuit Patient position: sniffing Method: asleep Final Airway Details Final airway type: endotracheal airway Final Endotracheal Airway: ETT Cuffed: yes Successful intubation technique: direct laryngoscopy Endotracheal tube insertion site: oral Blade: Bradley Blade size: #3 ETT size (mm): 7.5 Placement verified by: chest auscultation and capnometry Cormack-Lehane Classification: grade I - full view of glottis Number of attempts at approach: 1 Comments Easy atraumatic x 1 SIGNATURE: Stan Walton APRN.CRNA PATIENT NAME: Adilene Thurman DATE: January 22, 2024 TIME: 7:53 AM CSN: [id number] [facility] 01-12-2024 Note HNO ID: [id number] Author: ETHEL SHANNON APRN.CNM Service: ? Author Type: Occupational Therapist Aide Type: Progress Notes Filed: 01/16/2024 14:20 Note Text: EARLY VISIT Adilene Thurman is a 18 year old here for 1 week visit. Delivery Summary: 01/06/2024- Planned induced, C/S LTCS, 39w2d, epidural- female Erika 8lbs ROS: General: Denies any fever or chills Hypertension Screening: Headache? No. Visual Changes? No Epigastric Pain? No Increased Swelling? No Taking any BP medications at home? No If applicable, monitoring BP at home? (If Yes, include results) NA Mood: normal Depression: denies symptoms of depression. OB Depression and Anxiety Screening- This Encounter (since 01/11/2024) Over the past 2 weeks have you felt down, depressed, or hopeless? Negative Over the past two weeks, have you felt little interest or pleasure in doing things?? Negative Feeling nervous, anxious or on edge 0-Not at all Not being able to stop or control worrying 0-Not al all Anxiety Pre-Screening Total (If >/= 3 additional questions will be reviewed) 0 Feeding: Breast feeding problems: None Bladder: No dysuria, gross hematuria, urinary frequency, urinary urgency, or incontinence Bowel symptoms: No nausea, vomiting, or diarrhea, No heartburn or reflux symptoms, Negative for abdominal discomfort, blood in stools or black stools, and change in bowel habits Abdomen: She reports no incisional redness, tenderness, erythema Bleeding: spotting Bottom and Perineum: No issues Sleep: no sleep concerns, sleeping 6-7 hours at night, and sleeps in bassinet/crib in parent's room, feels rested [place] since delivery: Not resumed Emotional support: Yes Exercise: N/A Other issues: None PHYSICAL EXAMINATION: BP 110/72 Wt 124.7 kg (275 lb) LMP 04/06/2023 (Exact Date) Yes BMI 45.76 kg/m? General: pleasant,female in no apparent distress, AANDO x 3. Skin warm and intact. Breast: Deferred Abdomen: soft, non-tender, and no masses /Incision: No incisional redness, swelling, or drainage Pelvic: Deferred Bimanual: Deferred ASSESSMENT AND PLAN: 18 year old status post CS with normal course. Contraception plan: not applicable. Reinforced 6-week pelvic rest. Encouraged condom usage should patient deviate. Education: resources provided - see MA/RN note Follow up: Return to Clinic for 6 week visit and as needed [facility] History of Present illness Narrative EARLY VISIT Adilene Thurman is a 18 year old here for 1 week visit. Delivery Summary: 01/06/2024- Planned induced, C/S LTCS, 39w2d, epidural- female Erika 8lbs ROS: General: Denies any fever or chills Hypertension Screening: Headache? No. Visual Changes? No Epigastric Pain? No Increased Swelling? No Taking any BP medications at home? No If applicable, monitoring BP at home? (If Yes, include results) NA Mood: normal Depression: denies symptoms of depression. OB Depression and Anxiety Screening- This Encounter (since 01/11/2024) Over the past 2 weeks have you felt down, depressed, or hopeless? Negative Over the past two weeks, have you felt little interest or pleasure in doing things? Negative Feeling nervous, anxious or on edge 0-Not at all Not being able to stop or control worrying 0-Not al all Anxiety Pre-Screening Total (If >/= 3 additional questions will be reviewed) 0 Feeding: Breast feeding problems: None Bladder: No dysuria, gross hematuria, urinary frequency, urinary urgency, or incontinence Bowel symptoms: No nausea, vomiting, or diarrhea, No heartburn or reflux symptoms, Negative for abdominal discomfort, blood in stools or black stools, and change in bowel habits Abdomen: She reports no incisional redness, tenderness, erythema Bleeding: spotting Bottom and Perineum: No issues Sleep: no sleep concerns, sleeping 6-7 hours at night, and sleeps in bassinet/crib in parent's room, feels rested [place] since delivery: Not resumed Emotional support: Yes Exercise: N/A Other issues: None PHYSICAL EXAMINATION: BP 110/72 Wt 124.7 kg (275 lb) LMP 04/06/2023 (Exact Date) Yes BMI 45.76 kg/m General: pleasant,female in no apparent distress, A&O x 3. Skin warm and intact. Breast: Deferred Abdomen: soft, non-tender, and no masses /Incision: No incisional redness, swelling, or drainage Pelvic: Deferred Bimanual: Deferred ASSESSMENT AND PLAN: 18 year old status post CS with normal course. Contraception plan: not applicable. Reinforced 6-week pelvic rest. Encouraged condom usage should patient deviate. Education: resources provided - see MA/RN note Follow up: Return to Clinic for 6 week visit and as needed Ethel Shannon APRN.CNM documented in this encounter [facility] 01-10-2024 Note HNO ID: [id number] Author: BEBA WEAVER RN Service: ? Author Type: Registered Nurse Type: Progress Notes Filed: 01/10/2024 10:35 Note Text: Patient delivered via C/S at [facility] on 01/06/24 per Alex Eason See OB Outcome note. Beba Weaver RN [facility] 01-10-2024 History of Present illness Narrative Patient delivered via C/S at [facility] on 01/06/24 per Robbi Simmons D.O . See OB Outcome note. Beba Weaver RN documented in this encounter [facility] 01-07-2024 Note [facility] Medical Records Department [address] [place] [id number] Discharge Summary 01/07/24 1125 MR#: [id number] Acct: [id number] Name: ADILENE THURMAN Rep #: [id number] : 2005 18 From: Robbi Simmons DO PCP: Care Physician,No Primary Status:ADM IN Location: [id number] Discharge Summary Date of Admission: 01/04/24 Date of Discharge: 01/07/24 Summary: Patient presented for IOL for obesity at 39 week gestation. She progressed to 4 cm and remained at 4 cm after rupture and Pitocin, and she requested a primary section. See operative report for details. Caput and OP presentation noted at time of delivery, as well as a narrow pelvis. Her pain was controlled and she was eating and voiding without difficulty on discharge. She was given 1 dose of IV iron for acute on chronic blood loss anemia. Discharged to home in stable condition. Meaningful Use Info Meaningful Use Meaningful Use Diagnoses (Choose all that apply): None applicable Ischemic Stroke Statin Dosing Therapy Reference: STATIN DOSE THERAPY REFERENCE: * Patients > 75 years receive moderate or high dose statin therapy. * Patients 75 years or YOUNGER should receive HIGH intensity statin dose unless contraindicated. You will be required to document reason for non-treatment if statin daily dose does not meet guidelines. HIGH DOSE STATIN THERAPY DAILY Atorvastatin > than or = to 40 mg Rosuvastatin > than or = to 20 mg Amlodipine + Atorvastatin > than or = to 2.5/40 mg Ezetimibe + Simvastatin 10/80 mg Simvastatin 80mg Discharge Plan Admission Admit Date/Time: 01/04/24 19:14 Primary Reason for Your Visit: Delivery Attending Provider: Robbi Simmons Primary Care Provider: Care Physician,No Primary Instructions Patient Instructions: After a Discharge Orders/Prescriptions Prescriptions: New oxycodone 5 mg tablet 5 mg PO Q6H PRN (Reason: pain) 7 Days Qty: 5 0RF ibuprofen 600 mg tablet 600 mg PO Q6H PRN (Reason: pain) Qty: 30 0RF docusate sodium [Colace] 100 mg capsule 100 mg PO BID PRN (Reason: constipation) Qty: 30 0RF ferrous sulfate 325 mg (65 mg iron) tablet 325 mg PO QODAY Qty: 30 0RF Continued PNV cmb#[id number]-ferrous fumarate-FA [] 28 mg iron- 800 mcg tablet 1 tab PO DAILY Referrals / Follow Up: Care Physician,No Primary [Primary Care Provider] - Disposition Disposition (needs filled in before D/C Order can be placed): Home, Self Care 01/07/24 1128 Cosigner Signature (if applicable): CC: Dr. Robbi Simmons, DO; No Primary Care Physician Signed [facility] 01-01-2024 Note HNO ID: [id number] Author: JUNIOR RIVAS APRN.CNP Service: ? Author Type: Nurse Practitioner Type: Procedures Filed: 01/01/2024 14:40 Note Text: NST SUMMARY PROVIDER ASSESSMENT AND INTERPRETATION Indications for NST: Obesity Baseline: 150 Variability: Moderate Accelerations: Present 15 X 15 Decelerations: None Interpretation: Reactive SIGNATURE: Junior Rivas APRN.CNP [facility] 01-01-2024 Procedure note NST SUMMARY PROVIDER ASSESSMENT AND INTERPRETATION Indications for NST: Obesity Baseline: 150 Variability: Moderate Accelerations: Present 15 X 15 Decelerations: None Interpretation: Reactive SIGNATURE: Junior Rivas APRN.CNP [facility] 01-01-2024 Procedure note NST SUMMARY PROVIDER ASSESSMENT AND INTERPRETATION Indications for NST: Obesity Baseline: 150 Variability: Moderate Accelerations: Present 15 X 15 Decelerations: None Interpretation: Reactive SIGNATURE: Junior Rivas APRN.CNP documented in this encounter [facility] 01-01-2024 Instructions Jasmin Rubio LPN - 01/01/2024 2:16 PM EDT SEQUENTIAL SCREENINGS The [facility] offers sequential screenings for women who are [...] It will require an appointment with our sewing pattern layout technician. This is not an ultrasound performed [...] the above symptoms, contact our office at [phone] and ask to speak with a nurse. After hours, you can call doctors registry at [phone] OR call [facility] at [phone] and ask to have the doctor explosion welder paged. If you consider this an emergency, dial 1--8 or go to your nearest emergency department. NEED HELP? Are you dealing with a violent or abusive relationship? Are you a victim of rape or sexual assult? Call [facility] ([place]) 24 hour Crisis Hotline: 478.460.1881 or 407-929-9068. MANUAL Your Guide to a Healthy manual is now on-line. Visit [email or web address] to download your free copy documented in this encounter [facility] 01-01-2024 Progress note Formatting of t his note might be different from the original. EH - S: Adilene is a 18 year old female who presents at 38w4d for a routine visit. Feeling movement. Denies headache, visual changes, chest pain, shortness of breath, vaginal bleeding, leakage of fluid, or dysuria. Feeling well, no complaints. O: See flow sheet Gen: No apparent distress Abd: Gravid, nontender ASSESSMENT/PLAN: 1. Encounter for supervision of high risk in third trimester, antepartum - ICD9: V23.9, ICD10: O09.93 (primary diagnosis) - Coping well with mental health - Planning for Nexplanon after delivery - Planning for cholecystectomy 01/21 in [place] 2. 38 weeks gestation of - ICD9: V22.2, ICD10: Z3A.38 - GBS negative 3. Obesity affecting in third trimester, unspecified obesity type - ICD9: 649.13, ICD10: O99.213 - NST today - Has induction scheduled for 01/03 4. History of chlamydia - ICD9: V12.09, ICD10: Z86.19 - Negative as of 12/25/23 5. Anemia complicating , third trimester - ICD9: 648.23, 285.9, ICD10: O99.013 10.3 as of 12/07/23 - Has not been taking oral iron - Repeat CBC today Labor precautions reviewed. RTO for visit after induction/delivery. Junior Rivas APRN.MAINTENANCE REPAIRER [facility] 01-01-2024 Miscellaneous Notes EH - S: Adilene is a 18 year old female who presents at 38w4d for a routine visit. Feeling movement. Denies headache, visual changes, chest pain, shortness of breath, vaginal bleeding, leakage of fluid, or dysuria. Feeling well, no complaints. O: See flow sheet Gen: No apparent distress Abd: Gravid, nontender ASSESSMENT/PLAN: 1. Encounter for supervision of high risk in third trimester, antepartum - ICD9: V23.9, ICD10: O09.93 (primary diagnosis) - Coping well with mental health - Planning for Nexplanon after delivery - Planning for cholecystectomy 01/21 in [place] 2. 38 weeks gestation of - ICD9: V22.2, ICD10: Z3A.38 - GBS negative 3. Obesity affecting in third trimester, unspecified obesity type - ICD9: 649.13, ICD10: O99.213 - NST today - Has induction scheduled for 01/03 4. History of chlamydia - ICD9: V12.09, ICD10: Z86.19 - Negative as of 12/25/23 5. Anemia complicating , third trimester - ICD9: 648.23, 285.9, ICD10: O99.013 10.3 as of 12/07/23 - Has not been taking oral iron - Repeat CBC today Labor precautions reviewed. RTO for visit after induction/delivery. Junior Rivas APRN.CNP documented in this encounter [facility] 01-01-2024 Instructions Arlette Murguia APRN.CNP - 01/01/2024 1:04 PM EDT PATIENT PREOPERATIVE INSTRUCTIONS Joana Hernandez MD has scheduled you for your procedure at this surgery center: [facility]: [phone] -- [address] [address]. Please read below carefully for your personalized instructions. Arrival Time for Surgery: - The Surgery Center or hospital where you are having surgery will call the afternoon before surgery (or Monday for Monday surgery) with a scheduled arrival time. - If you have not heard by 4 pm, please contact the surgery center above. Please be aware that emergency situations arise, which may delay or change your surgical time. If this happens, we will notify you as soon as possible and regret any inconvenience. Dietary Restrictions: - No solid food after midnight. - You may have 12 ounces of clear liquids (water, clear juices such as apple juice or gatorade, carbonated beverages (sprite/terra migdalia), clear tea, black coffee, jello) until 2 hours before scheduled arrival at facility. - Do not drink any alcohol after midnight the night before your surgery. Medications: Unless instructed differently below, stay on all of your medications until your surgery. Pre-Surgery Med Instructions Medication Instructions acetaminophen 325 mg cap Take the day of surgery with a small sip of water if needed Blood Thinning Medications: - Stop NSAIDS (Ibuprofen, Advil, Aleve, Motrin, Celebrex, Mobic, etc.) 7 days before surgery, as directed by your surgeon. - Stop Aspirin 7 days before surgery, as directed by your surgeon. - Stop Vitamin E, ALL multi-vitamins, herbals and dietary supplements 14 days before surgery. - You may take Tylenol (Acetaminophen) or any of your pain medications that do not contain aspirin or NSAIDS as needed. Important Reminders: - Candy, mints, and tobacco products are NOT permitted the morning of surgery. - Hearing aids, dentures and glasses may be worn the morning of surgery. - NO jewelry, body piercings, makeup, hairpins or contacts are to be worn the day of surgery. If you develop symptoms such as a fever, cold, or flu, or have other changes to your health within TWO DAYS of scheduled surgery or the morning of surgery, please contact the surgery center above. Personal Belongings: -Please have photo ID and insurance cards. -If you do not have a copy of advance directives on file with us, please bring a copy with you on the day of surgery. - Leave ALL valuables and money at home or with family members. For Outpatient Procedures: - YOU MUST HAVE A RESPONSIBLE BENEFITS SPECIALIST RECRUITER TAKE YOU HOME. A DESIGN TRANSFERRER OR PRESSURE SEALER AND TESTER CANNOT BE MADE A RESPONSIBLE BENEFITS SPECIALIST RECRUITER. - We recommend that a responsible person stays with you overnight to take care of you. - You cannot stay in a hotel alone after outpatient surgery. You will not be permitted to have your surgery, if you do not have someone to take care of you. If you already have an Advance Directive, please fax a copy to [phone] or email to for it to be added to your chart. If you do not have an Advance Directive, you can find the appropriate form and more information at [email or web address]. We recommend that you complete the Advance Directive form found on the website and bring it with you the day of your surgery. It can be witnessed and scanned into your chart that day. Arlette Murguia APRN.RAN documented in this encounter [facility] 01-01-2024 History and physical note HISTORY AND PHYSICAL EXAMINATION SERVICE DATE: 01/01/2024 SERVICE TIME: 1:01 PM PRIMARY CARE PHYSICIAN: No primary care provider on file. Assessment Patient has the following medical conditions which may affect cady-operative course: , GI problems, third trimester Assessment: Scheduled for induction January 04, 2024 and advised to have lap pk 3 weeks post-. Reviewed /nursing during the perioperative period with patient today. Acute gallstone pancreatitis Assessment: Scheduled for lap pk 3 weeks post . Lab Results Component Value Date TBILI 1.1 12/07/2023 ALT 89 (H) 12/07/2023 AST 59 (H) 12/07/2023 ALKPHOS 188 (H) 12/07/2023 Obesity affecting in third trimester Assessment: Body mass index is 47.43 kg/m . Iron deficiency anemia Assessment: Labs stable. Not taking oral iron as she reports she was never instructed to continue after hospitalization for gallbladder issues. Lab Results Component Value Date HB 10.3 (L) 12/07/2023 HB 11.4 (L) 12/06/2023 HCT 32.4 (L) 12/07/2023 HCT 34.9 (L) 12/06/2023 Lawrence Activity Status Index: METS: Climb a flight of stairs or walk up a hill (5.50 METs) DASI Score: 5.5 Patient denies any chest pain or undue shortness of breath with the above physical activity. Clinical Frailty Scale: 2. Well STOP-Bang Score: Snores loudly BMI greater than 35 kg/m^2 Denies feeling tired, fatigued, or sleepy during the daytime Has not been observed to stop breathing or choking/gasping during sleep Denies having high blood pressure Patient 50 years old or younger Does not have a large neck Non-male patient STOP-Bang Score: 2 ANESTHESIA FINDINGS: Intubation History: No history of difficult intubation. No abnormal airway history Significant Anesthesia Considerations: none Airway History: No history of difficult airway No abnormal airway history I - PHYSICAL EVALUATION AIRWAY Patient intubated: No. Tracheostomy tube not present Mallampati: II. TM distance: >3 FB. Neck ROM: full ROM without neurological symptoms. Mouth opening: adequate. Short neck: no. Thick neck: no Genao present: no Lip Bite Test: II Microretrognathia/Micronagthia/Recess ed Chin: No DENTAL Dental findings: chipped. Additional comments: Caps. II - ANESTHESIA PLAN Beta Soumya Monitoring Plan Post Procedure Analgesic Plan Prepared for Surgery: optimally prepared for surgery. CONSULTS: Patient does not require consults for optimization at this time Planned Anesthetic: anesthesia choice The Following Tests/Procedures Have Been Initiated: No orders of the defined types were placed in this encounter. REASON FOR VISIT: Adilene Thurman is a 18 year old female who is scheduled for LAPAROSCOPIC CHOLECYSTECTOMY WITH GRAMS at the request of Dr. Joana Hernandez for consultation. My final recommendation will be communicated back to the requesting physician by way of shared medical record or letter. Subjective The patient has the following: ACTIVE PROBLEM LIST Hidradenitis Suppurativa With Uncertain Dates in Third Trimester History of Posttraumatic Stress Disorder (Ptsd) Anxiety Family History of Down Syndrome Insomnia Chlamydia Infection Affecting in First Trimester Obesity Affecting in Third Trimester Acute Gallstone Pancreatitis Allergic Rhinitis Ptsd (Post-Traumatic Stress Disorder) Contraceptive Management , GI Problems, Third Trimester Supervision of High Risk in Third Trimester Iron Deficiency Anemia COVID-19 Immunization Status Overdue - Covid-19 Vaccine () Overdue since 03/10/2023 05/16/2022 Imm Admin: COVID-19 original vaccine, full dose, monovalent (MODERNA) 04/18/2022 Imm Admin: COVID-19 original vaccine, full dose, monovalent (MODERNA) CHIEF COMPLAINT: Anesthesia Consult HPI: 18 year old female presents with gallstones and pancreatitis. Patient is 38 weeks . She started noticing RUQ abdominal pain during her that were out of the ordinary. Imaging demonstrated gallstones and labs were indicative of acute pancreatitis. She followed up with general surgery who recommended lap pk 3 weeks after giving . She is going in for induction this . Patient denies any current RUQ abdominal pain, nausea or vomiting. REVIEW OF SYSTEMS: General: No weight loss, malaise or fevers. Neurological: No history of TIA's, stroke, CABLE WORKER HELPER tumor, impaired sensorium, hemiplegia, paraplegia or quadraplegia. No neurological symptoms or problems. Respiratory: No history of current cough or dyspnea, or pneumonia in the past 6 weeks. No history of respiratory/pulmonary symptoms or problems. Cardiovascular: No history of HTN requiring medication, no history of angina, CHF, SD, cardiac surgery or stents. Denies rest pain, gangrene or revascularization/amputation for PVD. No history of cardiovascular symptoms or problems. GI: See HPI. Negative for: dysphagia, diverticulitis, GERD, GI bleed <30 days, hepatitis, irritable bowel syndrome, inflammatory bowel disease, liver disease, nausea, vomiting and ETOH >2 drinks/day. : Negative for: dysuria, hematuria, nephrolithiasis and renal failure. FUR WEIGHER: See HPI. Negative for: vaginal bleeding. Endocrine: No history of diabetes. Has not taken steroids within the past 30 days. No history of endocrinological symptoms or problems. Hematology: Positive for: anemia. Negative for: bruises/bleeds easily, factor V Leiden, thrombocytopenia, von Willebrand disease and chronic anti-coagulation/platelet meds. Oncology: No history of CA metastasis, chemo within 30 days, or radiotherapy within 90 days. No history of oncological symptoms or problems. Psych: No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 difficulty swallowing, denies acid reflux, denies ulcers, denies vomiting, denies jaundice/hepatitis, NOTES gallbladder problems, denies black or tarry stools, denies hemorrhoids, denies bleeding from rectum, denies diverticulitis, denies constipation, denies diarrhea, denies loss of stool control, and denies hernias. Kidney/Bladder: The patient denies kidney stones, denies urine infections, and denies bloody urine. Skin: The patient denies a history of skin cancer, denies bleeding/changing moles, and denies a history of skin rash. Neurologic: The patient denies a history of epilepsy/convulsions, denies headaches, denies head/spinal injuries, and denies stroke/TIA. Psychiatric: The patient denies psychiatric medications, denies depression, and denies voices, denies substance abuse. Endocrine: The patient denies thyroid disorders, denies diabetes, and denies hormonal problems. Hematologic: The patient denies a history of bruising, denies bleeding, and denies anemia, denies blood clots. Infections: The patient denies a history of measles and mumps, denies rheumatic fever, and denies sexually transmitted diseases. Musculoskeletal: The patient denies back pain/injury, denies back problems, denies sciatica, denies knee/foot trouble, denies arthritis, or denies gout. When was patient's last Mammogram screening? N/A Last Colonoscopy: none Serene Lott RN documented in this encounter [facility] 11-27-2023 History of Present illness Narrative NST SUMMARY PROVIDER ASSESSMENT AND INTERPRETATION Adilene Thurman is a 18 year old female, , who is at 33w4d with an DELANEY of 01/11/2024, Date entered prior to episode creation dating method. Indications for NST: Obesity Baseline: 145 Variability: Moderate Accelerations: Present 15 X 15 Decelerations: None Contractions: TOCO: None Interpretation: Category I and Reactive SIGNATURE: Ericka Gonzalez MD documented in this encounter [facility] 11-27-2023 Progress note Formatting of t his note might be different from the original. DM- Pt doing well today. Denies Vaginal Bleeding, Leaking fluid, or contractions. Pt reports good movement. NSTs weekly. Did not start ASA. Growth us 36 weeks scheduled. Will need repeat Gc/Chlamydia 36 weeks. D/w patient Delivery around 39 weeks unless indicated sooner. Kick counts and PTL reviewed with patient. RTO 2 weeks for routine OB, 1 week NST. Ericka Gonzalez MD [facility] 11-27-2023 Miscellaneous Notes DM- Pt doing well today. Denies Vaginal Bleeding, Leaking fluid, or contractions. Pt reports good movement. NSTs weekly. Did not start ASA. Growth us 36 weeks scheduled. Will need repeat Gc/Chlamydia 36 weeks. D/w patient Delivery around 39 weeks unless indicated sooner. Kick counts and PTL reviewed with patient. RTO 2 weeks for routine OB, 1 week NST. Ericka Gonzalez MD documented in this encounter [facility] 11-27-2023 Instructions Vida Hill MA - 11/27/2023 9:22 AM EDT SEQUENTIAL SCREENINGS The [facility] offers sequential screenings for women who are [...] It will require an appointment with our sewing pattern layout technician. This is not an ultrasound performed [...] the above symptoms, contact our office at [phone] and ask to speak with a nurse. After hours, you can call doctors registry at [phone] OR call [facility] at [phone] and ask to have the doctor explosion welder paged. If you consider this an emergency, dial 91-3 or go to your nearest emergency department. NEED HELP? Are you dealing with a violent or abusive relationship? Are you a victim of rape or sexual assult? Call [facility] ([place]) 24 hour Crisis Hotline: 792.971.8083 or 556-515-8968. MANUAL Your Guide to a Healthy manual is now on-line. Visit [email or web address] [email or web address] to download your free copy documented in this encounter [facility] 11-21-2023 Telephone encounter Note See below. Patient has her NSTs and repeat US already scheduled. Please call patient and assist with scheduling with GI. Consult order was placed. Thank you. Beba Weaver RN [facility] 11-21-2023 Telephone encounter Note ----- Message from Robbi Simmons MD sent at 11/20/2023 5:40 PM EDT ----- Add to record Pt should be scheduled for weekly NST's and a repeat growth US 4 weeks Scheduled with general surgery Needs to schedule with GI [facility] 11-21-2023 Miscellaneous Notes See below. Patient has her NSTs and repeat US already scheduled. Please call patient and assist with scheduling with GI. Consult order was placed. Thank you. Beba Weaver, RN ----- Message from Robbi Simmons MD sent at 11/20/2023 5:40 PM EDT ----- Add to record Pt should be scheduled for weekly NST's and a repeat growth US 4 weeks Scheduled with general surgery Needs to schedule with GI documented in this encounter [facility] 11-20-2023 Note Indication Evaluation of growth, Evaluation of well-being Obesity, BMI >30 Impression REMOTE READ 1. Single, live, intrauterine . 2. Estimated weight is 2155g, 62%ile 3. Amniotic fluid is normal amount. 4. The placenta is anterior, fundal. 5. Normal limited anatomy as detailed below. 6. BPP is 6/8. Recommendations Non-stress test in office Continue surveillance Growth ultrasound in four weeks Maternal Assessment Height 165 cm Height (ft) 5 ft Height (in) 5 in Physical Exam Initial weight (lb) 271 lb Initial BMI 45.10 kg/m Maternal assessment other: 1 Para 0 Method Transabdominal ultrasound examination Guzman . Number of fetuses: 1 Dating GA by prior assessment 32 w + 4 d DELANEY by prior assessment: 01/11/2024 Ultrasound examination on: 11/20/2023 GA by U/S based upon: AC, BPD, Femur, HC GA by U/S 33 w + 0 d DELANEY by U/S: 01/08/2024 Assigned: based on stated DELANEY, selected on 11/20/2023 Assigned GA 32 w + 4 d Assigned DELANEY: 01/11/2024 General Evaluation Cardiac activity present. FHR 140 bpm. movements: present. Presentation: cephalic Placenta: Placental site: anterior, fundal Umbilical cord: 3 vessel cord Amniotic fluid: Amount of AF: normal amount. MVP 8.0 cm. MARY 17.2 cm. Q1 8.0 cm, Q2 4.4 cm, Q3 1.0 cm, Q4 3.7 cm Biophysical Profile 0: breathing movements 2: Gross body movements 2: tone 2: Amniotic fluid volume 6/8 Biophysical profile score Growth Overview Exam date GA BPD (mm) HC (mm) AC (mm) FL (mm) HL (mm) EFW (g) 08/14/2023 18w 4d 39.3 24% 148.9 28% 130.2 46% 25.7 34% 25.7 34% 225 21% 11/20/2023 32w 4d 82.2 57% 304.4 58% 295.8 78% 62.7 59% 2155 62% Biometry Standard BPD 82.2 mm 33w 0d 57% Hadlock OFD 107.4 mm 32w 1d 49% Nicolaides HC 304.4 mm 32w 6d 58% Elizabet AC 295.8 mm 33w 4d 78% Hadlock Femur 62.7 mm 32w 2d 59% Elizabet EFW 2,155 g 33w 0d 62% Hadlock EFW (lb) 4 lb EFW (oz) 12 oz EFW by: Hadlock (HC-AC-FL) Extended Special Delivery Messenger 7.7 mm Extremities / Bony Struc FL / HC 0.21 Other Structures FHR 140 bpm Anatomy Lateral ventricles: normal Cavum septi pellucidi: normal Cerebellum: normal Cisterna magna: normal 4-chamber view: normal RVOT view: normal LVOT view: normal 3-vessel view: normal Heart / Thorax Situs: situs solitus (normal) Aortic arch view: suboptimal Diaphragm: normal Stomach: normal Kidneys: normal Bladder: normal Cervical spine: normal Thoracic spine: normal Lumbar spine: normal Sacral spine: normal Gender: Unspecified Wants to know sex: no Performed By: Jacqueline Ackerman RDMS, RVT Read By: Huyen Mosquera M.D. [facility] 11-20-2023 Progress note Formatting of t his note might be different from the original. SW- Pt doing well. Recently admitted with gallstone pancreatitis. Pain has improved. Has epigastric pain with certain foods that she eats. No ctx, vb, lof. Good FM PE: Gen- NAD, well appearing, comfortable Abd- Soft, gravid, NT, non acute See flowsheet A/p 32 wk gestation - Obesity affecting : BPP 8/10 today with reactive NST. Growth ultrasound today and final report pending. Repeat growth ultrasound in 4 weeks. Continue weekly antepartum testing and daily FKC's - Gallstone pancreatitis: Reviewed reasons to call or come back in. For now continue avoiding fatty foods, and adjusting diet. Will assist in getting patient scheduled with general surgery. She was given a number to call to establish with GI when admitted in [facility] 1 wk for NST Robbi Simmons DO [facility] 11-20-2023 Miscellaneous Notes SW- Pt doing well. Recently admitted with gallstone pancreatitis. Pain has improved. Has epigastric pain with certain foods that she eats. No ctx, vb, lof. Good FM PE: Gen- NAD, well appearing, comfortable Abd- Soft, gravid, NT, non acute See flowsheet A/p 32 wk gestation - Obesity affecting : BPP 8/10 today with reactive NST. Growth ultrasound today and final report pending. Repeat growth ultrasound in 4 weeks. Continue weekly antepartum testing and daily FKC's - Gallstone pancreatitis: Reviewed reasons to call or come back in. For now continue avoiding fatty foods, and adjusting diet. Will assist in getting patient scheduled with general surgery. She was given a number to call to establish with GI when admitted in [facility] 1 wk for NST Robbi Simmons DO documented in this encounter [facility] 11-20-2023 History of Present illness Narrative NST SUMMARY PROVIDER ASSESSMENT AND INTERPRETATION Adilene Thurman is a 18 year old female, , who is at 32w4d with an DELANEY of 01/11/2024, Date entered prior to episode creation dating method. Indications for NST: Obesity Baseline: 130 Variability: Moderate Accelerations: Present 15 X 15 Decelerations: None Contractions: TOCO: None Interpretation: Reactive SIGNATURE: Robbi Simmons DO documented in this encounter [facility] 11-20-2023 Instructions Raquel Newman MA - 11/20/2023 2:43 PM EDT SEQUENTIAL SCREENINGS The [facility] offers sequential screenings for women who are [...] It will require an appointment with our sewing pattern layout technician. This is not an ultrasound performed [...] the above symptoms, contact our office at [phone] and ask to speak with a nurse. After hours, you can call doctors registry at [phone] OR call [facility] at [phone] and ask to have the doctor explosion welder paged. If you consider this an emergency, dial 9-1-1 or go to your nearest emergency department. NEED HELP? Are you dealing with a violent or abusive relationship? Are you a victim of rape or sexual assult? Call [facility] ([place]) 24 hour Crisis Hotline: 222.801.9258 or 183-403-0494. MANUAL Your Guide to a Healthy manual is now on-line. Visit [email or web address] [email or web address] to download your free copy documented in this encounter [facility] 11-17-2023 Note HNO ID: [id number] Author: SUMMER, EVA, RN Service: Nursing Author Type: Registered Nurse Type: Procedures Filed: 11/17/2023 08:59 Note Text: ------ Attestation signed by Wang Leroy MD at 11/17/2023 9:33 AM Reactive for gestational age Wang Leroy Division of Maternal Medicine [facility] ------ OBSTETRICS NST SUMMARY SERVICE DATE: November 17, 2023 The patient is a 18 year old female, , who is at 32w1d with an DELANEY of 01/11/2024, Date entered prior to episode creation dating method. NST OBJECTIVE FINDINGS PER NURSE: Start Time: 07 (11/17/23799 : Eva Umanzor, RN) Complete Time: 799 (11/17/23799 : Eva Umanzor, RN) Indications: Other: Comment (pancreatitis) (11/17/23799 : Eva Umanzor, RN) Patient Reason For: monitor baby (11/17/23799 : Eva Umanzor, RN) NST Explanation: Procedure Explained;Monitor Explained;Verbalizes Understanding (11/17/23799 : Eva Umanzor, RN) Acoustic Stimulator: Interventions: MONITORING/ASSESSMENT: Baseline: 125 bpm (11/17/23799 : Eva Umanzor, RN) Variability: Moderate (6-25 bpm) (11/17/23799 : Eva Umanzor, RN) Accelerations: Present (11/17/23799 : Eva Umanzor, RN) Decelerations: Decelerations: None (11/17/23799 : Eva Umanzor, SHERRI) Contractions: Irregular (11/17/23799 : Eva Umanzor, RN) Frequency: x3 (11/17/23799 : Eva Umanzor, RN) Above information forwarded to Dr. Leroy (11/17/23799 : Eva Umanzor, RN) for final review and interpretation. SIGNATURE: Eva Umanzor RN PATIENT NAME: Adilene Thurman DATE: November 17, 2023 TIME: 8:58 AM [facility] 11-17-2023 Note HNO ID: [id number] Author: MERYL PASCUAL MD Service: Obstetrics Author Type: Resident Type: Progress Notes Filed: 11/17/2023 05:24 Note Text: RUQ US (11/15) read obtained from outside hospital. Impression: Cholelithiasis without evidence of biliary ductal dilatation, sonographic Zhou's sign or pericholecystic fluid. Hepatomegaly, mild hepatic steatosis without hepatic masses or ductal dilatation. Normal appearance of the right kidney. Full read located in patient's paper chart. SIGNATURE: Meryl Pascual MD PATIENT NAME: Adilene Thurman DATE: 11/17/2023 TIME: 5:23 AM PAGER/CONTACT #: [phone] [employer]PER[employer] Service Pager: For questions or concerns regarding: -Obstetric patients or consults Mon-Mon-5P, please page #[phone] -Gynecology patients or consults Mon-Mon 7A-5P, please page #[phone] -Postoperative patients Mon-Mon-5P, please directly page the resident caring for the patient After 5P and on holidays and weekends, please page #[phone] [facility] 11-17-2023 Note HNO ID: [id number] Author: BETSY REYNOLDS MD Service: Nursing Author Type: Physician Type: Procedures Filed: 11/28/2023 14:48 Note Text: OBSTETRICS NST SUMMARY SERVICE DATE: November 17, 2023 The patient is a 18 year old female, , who is at 32w1d with an DELANEY of 01/11/2024, Date entered prior to episode creation dating method. NST OBJECTIVE FINDINGS PER NURSE: Start Time: 034 (11/17/23 0409 : Ethel Herrmann RN) Complete Time: 408 (11/17/23408 : Ethel Herrmann RN) Indications: Other: Comment ( admission- gallstone pancreatitis) (11/17/23408 : Ethel Herrmann RN) Patient Reason For: monitor baby (11/17/23408 : Ethel Herrmann RN) NST Explanation: Procedure Explained;Monitor Explained;Verbalizes Understanding (11/17/23408 : Ethel Herrmann RN) Acoustic Stimulator: No (11/17/23408 : Ethel Herrmann RN) Interventions: Other (See Comment) (none) (11/17/23408 : Ethel Herrmann RN) MONITORING/ASSESSMENT: Baseline: 135 bpm (11/17/23408 : Ethel Herrmann RN) Variability: Moderate (6-25 bpm) (11/17/23408 : Ethel Herrmann RN) Accelerations: Present (11/17/23408 : Ethel Herrmann RN) Decelerations: Decelerations: None (11/17/23408 : Ethel Herrmann RN) Contractions: Not present (11/17/23408 : Ethel Herrmann RN) Frequency: Above information forwarded to Dr. Reynolds (11/17/23408 : Ethel Herrmann RN) for final review and interpretation. SIGNATURE: Ethel Herrmann RN PATIENT NAME: Adilene Thurman DATE: November 17, 2023 TIME: 4:26 AM PROVIDER INTERPRETATION: Reactive NST reviewed while patient in [facility] on 11/17/23 SIGNATURE: Betsy Reynolds MD DATE: November 28, 2023 TIME: 2:48 PM [facility] 11-16-2023 Progress note Note Date/Time November 16, 2023 7:16pm [facility] Medical Records Department [address] [place] [id number] Progress Note 11/16/231911 MR#: [id number] Acct: [id number] Name: ADILENE THURMAN Rep #:[id number] : 2005 18 From: Robbi Simmons DO PCP: Care Physician,No Primary Status :REG CLI Location: [id number] Progress Note At bedside to check on pt after labs returned. She states she is currently not having pain if she lays on her left side. Assessment & Plan Assessment/Plan (1) 32 weeks gestation of : (2) Epigastric pain: PLAN: Reviewed patient labs with hospitalist explosion welder who agrees with JUAN RUQ USgiven concern for pancreatitis. Cont IVF hydration. Called MFM explosion welder at [facility] as well who recommends transport of patient to a tertiary care center given 32 weeks gestation and acute pancreatitis. Discussed results with patient and questions answered. Will transport patient to tertiary care center. (3) RUQ pain: 11/16/231927 <Electronically signed by Robbi Simmons DO> Robbi Simmons DO Cosigner Signature (if applicable): CC: ~ Signed [facility] Work Phone: 1(944) 521-209605-09-2024 History and physical note Author Robbi Simmons [facility] November 16, 2023 6:23pm Note Date/Time November 16, 2023 6:04pm [facility] Medical Records Department [address] [place] [address] OB Triage Physician Note 11/16/23 1758 MR#: [id number] Acct: [id number] Name: ADILENE THURMAN Rep #:[id number] : 2005 18 From: Robbi Simmons DO PCP: Care Physician,No Primary Status :REG CLI Y Location: NS942-9 HPI - General General Date of Service: 11/16/23 Chief Complaint: epigastric pain HPI Narrative ADILENE THURMAN, is a 18 F who presents with epigastric pain that radiates into RUQ. She states her pain started early this morning. She then went to work and her pain continued to worsen at work. She thought the pain was because she was hungry, so she ate a sandwich which did not change her pain. She presents to OB triage after her work shift given the pain. She has nausea and vomiting with thepain. No fevers or chills. She denies having RUQ or epigastric pain previously. She denies headache or vision changes. She denies ctx's, cramping, lower abdominal pain, vb, lof. Good FM. PFSH PFSH Allergy/AdvReac Type Severity Reaction Status Date / Time No Known Allergies Allergy Verified 09/21/23 20:19 Physical Exam Const alert and no apparent distress Constitutional Narrative: Upon entering the room the patient was in the restroom to give a urine sample. She walked back to the bed without difficulty and is comfortable appearing General Appearance: comfortable HEENT normocephalic Resp normal respiratory effort GI soft to palpation and non-distended GI Narrative: +Tenderness in epigastric and RUQ area. No rebounding, no guarding, no rigidity.No lower abdominal tenderness Extremity Extremity Narrative: No hyper reflexia on patellar reflexes NST FHR Rate Baby A Baseline: 130 Variability:: Moderate Accelerations:: None Decelerations:: None Uterine Activity:: None Assessment & Plan (1) 32 weeks gestation of : PLAN: CEFM with reassuring FHT at this time. She offers no obstetric complaints. (2) Epigastric pain: PLAN: Tenderness on exam in epigastric and RUQ areas with N/V: - She denies symptoms of pre e, no hyper reflexia on exam, BP's are normal. Check p/c ratio and labs as noted below. Low suspicion for pre eclampsia at thistime - IVF hydration started and Zofran x 1 given for nausea - CBC with diff, CMP, amylase, lipase ordered - RUQ US ordered (3) RUQ pain: 11/16/23 1823 <Electronically signed by Robbi Simmons DO> Date _ Robbi Simmons DO Cosigner Signature (if applicable): Date CC: Dr. Robbi Simmons DO; No Primary Care Physician ~ Signed [facility] Work Phone: 1(958) 594-867805-03-2024 History of Present illness Narrative* Maria Isabel Rodriguez APRN.BASSEM - 11/10/2023 12:17 PM EDT NST SUMMARY PROVIDER ASSESSMENT AND INTERPRETATION Adilene Thurman is a 18 year old female, , who is at 31w1d with an DELANEY of 01/11/2024, Date entered prior to episode creation dating method. Indications for NST: Decreased Movement Baseline: 130 Variability: Moderate Accelerations: Present 15 X 15 Decelerations: None Contractions: TOCO: None Interpretation: Reactive SIGNATURE: Maria Isabel Rodriguez APRN.CNM [facility] Progress note* Quick Notes - Maria Isabel Rodriguez APRN.CNM - 11/10/2023 12:07 PM EDT S: Adilene Thurman is a 18 year old female who presents as an adde on for decreased movement, nausea and diarrhea since yesterday. She is currently at work at [employer] and here on a break. Placed on monitor for NST. Patient has felt movement since arrival. Trying to sip on water and electrolytes. Denies headache, visual changes, chest pain, shortness of breath, vaginal bleeding, leakage of fluid, or dysuria. O: See flow sheet Gen: No apparent distress Abd: Gravid, non tender ASSESSMENT/PLAN: 1. Encounter for supervision of normal first in third trimester - ICD9: V22.0, ICD10: Z34.03 2. Obesity affecting in third trimester, unspecified obesity type - ICD9: 649.13, ICD10: O99.213 3. 31 weeks gestation of - ICD9: V22.2, ICD10: Z3A.31 4. Decreased movement - NST reactive for gestational age - kick counts reviewed - Continue to increase hydration - Notify office if unable to keep any food or liquids down for 24 hours - RTO - already scheduled visit/NST next week Maria Isabel Rodriguez APRN.CNM [facility]05-03-2024 Miscellaneous Notes* Quick Notes - Maria Isabel Rodriguez APRN.CNM - 11/10/2023 12:07 PM EDT S: Adilene Thurman is a 18 year old female who presents as an adde on for decreased movement, nausea and diarrhea since yesterday. She is currently at work at [employer] and here on a break. Placed on monitor for NST. Patient has felt movement since arrival. Trying to sip on water and electrolytes. Denies headache, visual changes, chest pain, shortness of breath, vaginal bleeding, leakage of fluid, or dysuria. O: See flow sheet Gen: No apparent distress Abd: Gravid, non tender ASSESSMENT/PLAN: 1. Encounter for supervision of normal first in third trimester - ICD9: V22.0, ICD10: Z34.03 2. Obesity affecting in third trimester, unspecified obesity type - ICD9: 649.13, ICD10: O99.213 3. 31 weeks gestation of - ICD9: V22.2, ICD10: Z3A.31 4. Decreased movement - NST reactive for gestational age - kick counts reviewed - Continue to increase hydration - Notify office if unable to keep any food or liquids down for 24 hours - RTO - already scheduled visit/NST next week Maria Isabel Rodriguez APRN.CNM [facility] Instructions* Patient Instructions* Dipesh Schaefer MA - 11/10/2023 11:35 AM EDT SEQUENTIAL SCREENINGS The [facility] offers sequential screenings for women who are interested in screenings for chromosomal abnormalities and certain defects during a . The sequential screen combinesultrasound and blood tests to determine the risk [...] this testing. It will require an appointment withour sewing pattern layout technician. This is not an ultrasound performed [...] the above symptoms, contact our office at [phone] and ask to speak with anurse. After hours, you can call doctors registry at [phone] OR call [facility] at [phone] ask to have the doctor explosion welder paged. If you consider this an emergency, dial 9-8 or go to your nearest emergency department. NEED HELP? Are you dealing with a violent or abusive relationship? Are you a victim of rape or sexual assult? Call [facility] ([place]) 24 hour Crisis Hotline: 535.668.2123 or 841-774-1129. MANUAL Your Guide to a Healthy manual is now on-line. Visit [email or web address] to download your free copy [facility] Telephone encounter Note * Telephone Encounter - Beba Weaver RN - 11/10/2023 9:04 AM EDT 31w1d Patient called with c/o SOLANO, abdominal pain, vomiting x1, and constipation. States she hasn't felt the baby move yet today. SOLANO pain rate of 5-6. Unsure if the abdominal pain is contractions. At times her pain brings her to tears. Vomited once this morning. Patient works at [employer] down the street. Coming in now to the office for evaluation. MICHELLE Weaver RN [facility]05-03-2024 Miscellaneous Notes* Telephone Encounter - Beba Weaver RN - 11/10/2023 9:04 AM EDT 31w1d Patient called with c/o SOLANO, abdominal pain, vomiting x1, and constipation. States she hasn't felt the baby move yet today. SOLANO pain rate of 5-6. Unsure if the abdominal pain is contractions. At times her pain brings her to tears. Vomited once this morning. Patient works at [employer] down the street. Coming in now to the office for evaluation. MICHELLE Weaver, RN documented in this [facility] Progress note* Quick Notes - Maria Isabel Rodriguez APRN.CNM - 11/06/2023 2:39 PM EDT S: Adilene Thurman is a 18 year old female who presents at 30.4 weeks for a routine visit. Denies headache, visual changes, chest pain, shortness of breath, vaginal bleeding, leakage of fluid, or dysuria.Feeling well, no complaints. Reviewed lab- GCT normal range. O: See flow sheet Gen: No apparent distress Abd: Gravid, nontender ASSESSMENT/PLAN: 1. 30 weeks gestation of - ICD9: V22.2, ICD10: Z3A.30 (primary diagnosis) 2. Encounter for supervision of normal first in second trimester - ICD9: V22.0, ICD10: Z34.02 3. Late care affecting in second trimester - ICD9: V23.7, ICD10: O09.32 4. Obesity in - Growth US and NSTs starting at 32 weeks gestation - PTL precautions reviewed and when to call provider Maria Isabel Rodriguez APRN.CNM [facility]04-29-2024 Miscellaneous Notes* Quick Notes - Maria Isabel Rodriguez APRN.CNM - 11/06/2023 2:39 PM EDT S: Adilene Thurman is a 18 year old female who presents at 30.4 weeks for a routine visit. Denies headache, visual changes, chest pain, shortness of breath, vaginal bleeding, leakage of fluid, or dysuria.Feeling well, no complaints. Reviewed lab- GCT normal range. O: See flow sheet Gen: No apparent distress Abd: Gravid, nontender ASSESSMENT/PLAN: 1. 30 weeks gestation of - ICD9: V22.2, ICD10: Z3A.30 (primary diagnosis) 2. Encounter for supervision of normal first in second trimester - ICD9: V22.0, ICD10: Z34.02 3. Late care affecting in second trimester - ICD9: V23.7, ICD10: O09.32 4. Obesity in - Growth US and NSTs starting at 32 weeks gestation - PTL precautions reviewed and when to call provider Maria Isabel Rodriguez APRN.CNM documented [facility] Instructions* Patient Instructions* Raquel Newman MA - 11/06/2023 2:27 PM EDT SEQUENTIAL SCREENINGS The [facility] offers sequential screenings for women who are interested in screenings for chromosomal abnormalities and certain defects during a . The sequential screen combinesultrasound and blood tests to determine the risk [...] this testing. It will require an appointment withour sewing pattern layout technician. This is not an ultrasound performed [...] the above symptoms, contact our office at [phone] and ask to speak with anurse. After hours, you can call doctors registry at [phone] OR call [facility] at [phone] ask to have the doctor explosion welder paged. If you consider this an emergency, dial 9-1-0 or go to your nearest emergency department. NEED HELP? Are you dealing with a violent or abusive relationship? Are you a victim of rape or sexual assult? Call [facility] ([place]) 24 hour Crisis Hotline: 617.795.6990 or 183-348-3675. MANUAL Your Guide to a Healthy manual is now on-line. Visit [email or web address] to download your free copy documented in this encounterPrem[facility]24 Miscellaneous Notes* Quick Notes - Robbi Simmons MD - 10/23/2023 2:25 PM EDT SW- pt doing well. No ctx, vb, lof. +FM. Somewhat decreased today PE: Gen- NAD, well appearing Abd- Soft, gravid, NT See flowsheet A/p 28 wk gestation - plan sheet reviewed and questions answered - Tdap today - Obesity: Ordered NST's and growth US - RTO 2 wks Robbi Simmons DO documented in this encounterPrem[facility] History of Present illness Narrative* Raquel Newman MA - 10/23/2023 2:20 PM EDT Patient identified by name and date of . Adilene Thurman presents today for a vaccination of Tdap. Patient denies an allergy to latex: yes Patient denies a severe (life-threatening) allergy to a previous dose of Tdap, DTP, DTaP, DT or Td vaccine. Yes Patient denies history of epilepsy or neurological problems: Yes Patient is afebrile and denies being moderately or severely ill: Yes Patient denies history of Guillain-Holloway Syndrome (a severe paralytic illness): Yes Tdap Adacel injection was given without incident. See immunizations for details of immunizations administered today. VIS sheet provided: Yes Provider Robbi Simmons DO was present in office at time of injection. Raquel Newman MA documented in this encounterPrem[facility]04-15-2024 Instructions* Patient Instructions* Raquel Newman MA - 10/23/2023 2:20 PM EDT SEQUENTIAL SCREENINGS The [facility] offers sequential screenings for women who are interested in screenings for chromosomal abnormalities and certain defects during a . The sequential screen combinesultrasound and blood tests to determine the risk [...] this testing. It will require an appointment withour sewing pattern layout technician. This is not an ultrasound performed [...] the above symptoms, contact our office at [phone] and ask to speak with anurse. After hours, you can call doctors registry at [phone] OR call [facility] at [phone] ask to have the doctor explosion welder paged. If you consider this an emergency, dial 9-1-1 or go to your nearest emergency department. NEED HELP? Are you dealing with a violent or abusive relationship? Are you a victim of rape or sexual assult? Call [facility] ([place]) 24 hour Crisis Hotline: 769.492.7838 or 046-889-9018. MANUAL Your Guide to a Healthy manual is now on-line. Visit [email or web address] to download your free copy documented in this encounterPrem[facility]04-01-2024 Miscellaneous Notes* Quick Notes - Maria Isabel Rodriguez APRN.CNM - 10/09/2023 3:05 PM EDT S: Adilene Thurman is a 18 year old female who presents at 26.4 weeks for a routine visit. Just completed GCT. Feeling good. Positive movement. Denies headache, visual changes, chest pain, shortnessof breath, vaginal bleeding, leakage of fluid, or dysuria. Feeling well, no complaints. O: See flow sheet Gen: No apparent distress Abd: Gravid, non tender ASSESSMENT/PLAN: 1. Late care affecting in second trimester - ICD9: V23.7, ICD10: O09.32 (primarydiagnosis) 2. Encounter for supervision of normal first in second trimester - ICD9: V22.0, ICD10: Z34.02 3. 26 weeks gestation of - ICD9: V22.2, ICD10: Z3A.26 4. Chlamydia contact, treated - ICD9: V01.6, ICD10: Z20.2 - GONORRHEA/CHLAMYDIA NAAT- DHRUV today - 1 hour GCT, CBC, and RPR today - Rh positive- O+ - TDAP - unsure- handout given - LARC form reviewed and signed. Patient DESIRES NEXPLANON insertion - Depression screen negative - Opioid screen negative - plan form discussed and given to patient. Patient desires medicated labor and delivery/ - Encouraged CBE classes - PTL precautions and kick counts reviewed - RTO- 2 weeks or sooner if needed documented in this encounterPrem[facility]04-01-2024 Instructions* Patient Instructions* Neisha Arriaga MA - 10/09/2023 2:36 PM EDT SEQUENTIAL SCREENINGS The [facility] offers sequential screenings for women who are interested in screenings for chromosomal abnormalities and certain defects during a . The sequential screen combinesultrasound and blood tests to determine the risk [...] this testing. It will require an appointment withour sewing pattern layout technician. This is not an ultrasound performed [...] the above symptoms, contact our office at [phone] and ask to speak with anurse. After hours, you can call doctors registry at [phone] OR call [facility] at [phone] ask to have the doctor explosion welder paged. If you consider this an emergency, dial 5-4-5 or go to your nearest emergency department. NEED HELP? Are you dealing with a violent or abusive relationship? Are you a victim of rape or sexual assult? Call [facility] ([facility] 24 hour Crisis Hotline: 964.865.4626 or 508-779-0004. MANUAL Your Guide to a Healthy manual is now on-line. Visit [email or web address] to download your free copy documented in this encounterPrem[facility]03-15-2024 Miscellaneous Notes* Quick Notes - Maria Isabel Rodriguez APRN.CNM - 09/22/2023 10:24 AM EDT S: Adilene Thurman is a 18 year old female who presents as an add on visit. Seen in ED last night because she saw blood after wiping. No active bleeding. Denies any cramps or contractions. She tested positive for bacterial vaginosis and chlamydia last week and is currently taking antibiotics. Denies headache, visual changes, chest pain, shortness of breath, vaginal bleeding, leakage of fluid, or dysuria. O: See flow sheet Gen: No apparent distress Abd: Gravid, non tender ASSESSMENT/PLAN: 1. 24 weeks gestation of - ICD9: V22.2, ICD10: Z3A.24 (primary diagnosis) 2. Late care affecting in second trimester - ICD9: V23.7, ICD10: O09.32 3. Encounter for supervision of normal first in second trimester - ICD9: V22.0, ICD10: Z34.02 P: 1) PTL precautions reviewed and when to call 2) RTO 4 weeks - DHRUV needed Maria Isabel Rodriguez APRN.CNM documented in this encounterPrem[facility]03-15-2024 Instructions* Patient Instructions* Fatuma De Leon, Student - 09/22/2023 10:14 AM EDT SEQUENTIAL SCREENINGS The [facility] offers sequential screenings for women who are interested in screenings for chromosomal abnormalities and certain defects during a . The sequential screen combinesultrasound and blood tests to determine the risk [...] this testing. It will require an appointment withour sewing pattern layout technician. This is not an ultrasound performed [...] the above symptoms, contact our office at [phone] and ask to speak with anurse. After hours, you can call [employer] [facility] at [phone] OR call [facility] at [phone] ask to have the doctor explosion welder paged. If you consider this an emergency, dial 9--1 or go to your nearest emergency department. NEED HELP? Are you dealing with a violent or abusive relationship? Are you a victim of rape or sexual assult? Call [facility] ([place]) 24 hour Crisis Hotline: 195.431.7656 or 607-564-7444. MANUAL Your Guide to a Healthy manual is now on-line. Visit [email or web address] to download your free copy documented in this encounterPrem[facility]03-14-2024 Hospital Discharge instructions Additional Instructions Patient to return if bleeding increases or becomes painful. Increase oral hydration and call the office in the morning.[facility] Work Phone: 1(235) 828-826303-06-2024 Miscellaneous Notes* Addendum Note - Maria Isabel Rodriguez APRN.CNM - 09/13/2023 10:29 AM ESTAddended by: MARIA ISABEL RODRIGUEZ on: 09/13/2023 10:29 AM Modules accepted: Orders * Telephone Encounter - Maria Isabel Rodriguez APRN.CNM - 09/13/2023 10:29 AM EST Rx sent. Maria Isabel Rodriguez APRN.CNM * Addendum Note - Jacqueline Solorio RN - 09/13/2023 9:21 AM ESTAddended by: JACQUELINE SOLORIO on: 09/13/2023 09:21 AM Modules accepted: Orders * Telephone Encounter - Jacqueline Solorio RN - 09/13/2023 9:19 AM EST Patient notified and voiced understanding. Health department form filled out and faxed. Patient testing also positive for BV. Discussed results with patient. Please order medication for BV. Thank you. Jacqueline Solorio RN * Telephone Encounter - Maria Isabel Rodriguez APRN.CNM - 09/13/2023 8:54 AM EST Rx sent for Azithromycin 1000 mg PO X1 dose. This is recommended treatment in . Patient's partner will need treated. Maria Isabel Rodriguez APRN.CNM * Telephone Encounter - Jacqueline Solorio RN - 09/13/2023 8:42 AM EST Patient 22w6d, positive for Chlamydia. Please review and order medication in SW's absence. Jacqueline Solorio RN documented in this encounterPrem[facility]03-04-2024 Miscellaneous Notes* Quick Notes - Robbi Simmons MD - 09/11/2023 3:00 PM EST SW- Pt doing well. No pain, vb, [...] wks Robbi Simmons DO documented in this encounterPrem[facility]03-04-2024 Instructions* Patient Instructions* Raquel Newman MA - 09/11/2023 2:30 PM EST SEQUENTIAL SCREENINGS The [facility] offers sequential screenings for women who are interested in screenings for chromosomal abnormalities and certain defects during a . The sequential screen combinesultrasound and blood tests to determine the risk [...] this testing. It will require an appointment withour sewing pattern layout technician. This is not an ultrasound performed [...] the above symptoms, contact our office at [phone] and ask to speak with anurse. After hours, you can call doctors registry at [phone] OR call [facility] at [phone] ask to have the doctor explosion welder paged. If you consider this an emergency, dial 9-5-6 or go to your nearest emergency department. NEED HELP? Are you dealing with a violent or abusive relationship? Are you a victim of rape or sexual assult? Call [facility] ([place]) 24 hour Crisis Hotline: 373.595.1920 or 832-594-2137. MANUAL Your Guide to a Healthy manual is now on-line. Visit [email or web address] to download your free copy documented in this encounterPrem[facility]02-05-2024 Miscellaneous Notes* Telephone Encounter - Junior Rivas APRN.CNP - 08/14/2023 5:05 PM EST MyChart message sent regarding suboptimal views of anatomy and need of follow up. Junior Rivas APRN.CNP documented in this encounterPrem[facility]02-05-2024 Miscellaneous Notes* Quick Notes - Maria Isabel Rodriguez APRN.CNM - 08/14/2023 2:53 PM EST S: Adilene Thurman is a 17 year [...] trimester, unspecified obesity type - ICD9: 649.13, ICD10:O99.212 3. Late care affecting in second trimester - ICD9: V23.7, ICD10: O09.3 4. Nausea/vomiting in - ICD9: 643.90, ICD10: O21.9 5. Anxiety - ICD9: 300.00, ICD10: F41.9 - Chlamydia- needs DHRUV next visit - Reviewed if unable to keep food or liquids down >24 hours to notify office - RTO- 2 weeks for repeat anatomy and 4 weeks for LINDSEY Rodriguez APRN.CNM documented in this encounterPrem[facility]02-05-2024 Instructions* Patient Instructions* Vida Hill Ma - 08/14/2023 2:34 PM EST SEQUENTIAL SCREENINGS The [facility] offers sequential screenings for women who are interested in screenings for chromosomal abnormalities and certain defects during a . The sequential screen combinesultrasound and blood tests to determine the risk [...] this testing. It will require an appointment withour sewing pattern layout technician. This is not an ultrasound performed [...] the above symptoms, contact our office at [phone] and ask to speak with anurse. After hours, you can call doctors registry at [phone] OR call [facility] at [phone] ask to have the doctor explosion welder paged. If you consider this an emergency, dial 2-4-6 or go to your nearest emergency department. NEED HELP? Are you dealing with a violent or abusive relationship? Are you a victim of rape or sexual assult? Call [facility] ([place]) 24 hour Crisis Hotline: 907.639.7108 or 990-146-7543. MANUAL Your Guide to a Healthy manual is now on-line. Visit [email or web address] to download your free copy documented in this encounterPrem[facility] SouthEvaluation note* Diagnosis 18 weeks gestation of - Primary state, incidental Obesity affecting in second trimester, unspecified obesity type Late care affecting in second trimester Nausea/vomiting in Unspecified vomiting of , unspecified as to episode of care Anxiety Anxiety state, unspecified [facility] 18 [facility] gestation of - Primary state, incidental documented in this encounter [facility]* Diagnosis Encounter for follow-up ultrasound of anatomy- Primary 21 weeks gestation of state, incidental documented in this encounter [facility]* Diagnosis 22 weeks gestation of - Primary state, incidental Late care affecting in second trimester Encounter for supervision of normal first in second trimester Supervision of normal first Vaginal discharge Leukorrhea, not specified as infective documented in this encounter [facility] noteNo assessment information availableWMercy Health [facility] Work Phone: Evaluation note* Diagnosis Onset Date Resolution Status [id number] [facility] Work Phone: Evaluation note* Diagnosis 24 weeks gestation of - Primary state, incidental Late care affecting in second trimester Encounter for supervision of normal first in second trimester Supervision of normal first documented in this encounter [facility] note* Diagnosis Late care affecting in second trimester- Primary Encounter for supervision of normal first in second trimester Supervision of normal first 26 weeks gestation of state, incidental Chlamydia contact, treated Contact with or exposure to venereal diseases Obesity affecting in second trimester, unspecified obesity type documented in this encounter [facility] note* Diagnosis 28 weeks gestation of - Primary state, incidental Encounter for supervision of normal first in second trimester Supervision of normal first Late care affecting in second trimester Need for vaccination Need for prophylactic vaccination and inoculation against unspecified single disease Obesity affecting in third trimester, unspecified obesity type documented in this encounter [facility] note* Diagnosis 30 weeks gestation of - Primary state, incidental Encounter for supervision of normal first in second trimester Supervision of normal first Late care affecting in second trimester Obesity affecting in third trimester, unspecified obesity type documented in this encounter [facility] note* Diagnosis Encounter for supervision of normal first in third trimester- Primary Supervision of normal first Obesity affecting in third trimester, unspecified obesity type 31 weeks gestation of state, incidental Decreased movements in third trimester, single or unspecified fetus documented in this encounter [facility] note* Diagnosis Onset Date Resolution Status [id number] acute 24 weeks gestation of acute Spotting affecting acute 32 weeks gestation of acute Epigastric pain acute RUQ pain [facility] Work Phone: Evaluation note* Diagnosis Encounter for supervision of normal first in third trimester- Primary Supervision of normal first Obesity affecting in third trimester, unspecified obesity type 32 weeks gestation of state, incidental History of acute pancreatitis Personal history of other diseases of digestive system Gallstones Calculus of gallbladder without mention of cholecystitis or obstruction documented in this encounter [facility]* Diagnosis Encounter for ultrasound to check growth- Primary Encounter for routine screening for malformation using ultrasonics Late care affecting in second trimester Obesity affecting in third trimester, unspecified obesity type 32 weeks gestation of state, incidental documented in this encounter [facility]* Diagnosis Supervision of high risk in third trimester- Primary Unspecified high-risk Obesity affecting in third trimester, unspecified obesity type 33 weeks gestation of state, incidental documented in this encounter [facility]* Diagnosis 32 weeks gestation of state, incidental History of acute pancreatitis Personal history of other diseases of digestive system Gallstones Calculus of gallbladder without mention of cholecystitis or obstruction documented in this encounter [facility]* Diagnosis 35 weeks gestation of - Primary state, incidental Supervision of high risk in third trimester Unspecified high-risk Urinary tract infection in mother during third trimester of Acute gallstone pancreatitis Chlamydia infection affecting in first trimester PTSD (post-traumatic stress disorder) Posttraumatic stress disorder Obesity affecting in third trimester, unspecified obesity type with uncertain dates in third trimester Anemia during in third trimester 32 weeks gestation of state, incidental History of acute pancreatitis Personal history of other diseases of digestive system Gallstones Calculus of gallbladder without mention of cholecystitis or obstruction documented in this encounter [facility]* Diagnosis 36 weeks gestation of - Primary state, incidental Supervision of high risk in third trimester Unspecified high-risk Obesity affecting in third trimester, unspecified obesity type 32 weeks gestation of state, incidental History of acute pancreatitis Personal history of other diseases of digestive system Gallstones Calculus of gallbladder without mention of cholecystitis or obstruction documented in this encounter [facility]* Diagnosis Encounter for ultrasound to check growth- Primary Encounter for routine screening for malformation using ultrasonics Late care affecting in second trimester Obesity affecting in third trimester, unspecified obesity type 36 weeks gestation of state, incidental 32 weeks gestation of state, incidental History of acute pancreatitis Personal history of other diseases of digestive system Gallstones Calculus of gallbladder without mention of cholecystitis or obstruction documented in this encounter [facility]* Diagnosis Supervision of high risk in third trimester- Primary Unspecified high-risk Obesity affecting in third trimester, unspecified obesity type 37 weeks gestation of state, incidental Vaginal pruritus Pruritus of genital organs 32 weeks gestation of state, incidental History of acute pancreatitis Personal history of other diseases of digestive system Gallstones Calculus of gallbladder without mention of cholecystitis or obstruction documented in this encounter [facility]* Diagnosis Preoperative examination- Primary Preoperative examination, unspecified , GI problems, third trimester Acute gallstone pancreatitis Obesity affecting in third trimester, unspecified obesity type Iron deficiency anemia, unspecified iron deficiency anemia type 32 weeks gestation of state, incidental History of acute pancreatitis Personal history of other diseases of digestive system Gallstones Calculus of gallbladder without mention of cholecystitis or obstruction * Assessment & Plan Note - Arlette Murguia APRN.CNP - 01/01/2024 1:40 PM EDT Associated Problem(s): Iron deficiency anemia Assessment: Labs stable. Not taking oral iron as she reports she was never instructed to continue after hospitalization for gallbladder issues. Lab Results Component Value Date HB 10.3 (L) 12/07/2023 HB 11.4 (L) 12/06/2023 HCT 32.4 (L) 12/07/2023 HCT 34.9 (L) 12/06/2023 * Assessment & Plan Note - Arlette Murguia APRN.CNP - 01/01/2024 1:39 PM EDT Associated Problem(s): Obesity affecting in third trimester Assessment: Body mass index is 47.43 kg/m . * Assessment & Plan Note - Arlette Murguia APRN.CNP - 01/01/2024 1:39 PM EDT Associated Problem(s): Acute gallstone pancreatitis Assessment: Scheduled for lap pk 3 weeks post . Lab Results Component Value Date TBILI 1.1 12/07/2023 ALT 89 (H) 12/07/2023 AST 59 (H) 12/07/2023 ALKPHOS 188 (H) 12/07/2023 * Assessment & Plan Note - Arlette Murguia APRN.CNP - 01/01/2024 1:38 PM EDT Associated Problem(s): , GI problems, third trimester Assessment: Scheduled for induction January 04, 2024 and advised to have lap pk 3 weeks post-. Reviewed /nursing during the perioperative period with patient today. documented in this encounter [facility]* Diagnosis Encounter for supervision of high risk in third trimester, antepartum- Primary 38 weeks gestation of state, incidental Obesity affecting in third trimester, unspecified obesity type History of chlamydia Personal history of other infectious and parasitic disease Anemia complicating , third trimester 32 weeks gestation of state, incidental History of acute pancreatitis Personal history of other diseases of digestive system Gallstones Calculus of gallbladder without mention of cholecystitis or obstruction documented in this encounter [facility]* Diagnosis Postop check- Primary Follow-up examination, following unspecified surgery 32 weeks gestation of state, incidental History of acute pancreatitis Personal history of other diseases of digestive system Gallstones Calculus of gallbladder without mention of cholecystitis or obstruction [facility] Diagnosis Gallstones- Primary Calculus of gallbladder without mention of cholecystitis or obstruction History of acute pancreatitis Personal history of other diseases of digestive system [facility]* Diagnosis care and examination- Primary Routine follow-up documented [facility] [facility] Diagnosis Gallstones- Primary Calculus of gallbladder without mention of cholecystitis or obstruction History of acute pancreatitis Personal history of other diseases of digestive system Other ascites [facility] History of biliary duct stent placement- Primary Other postprocedural status Encounter for removal of biliary stent documented in this encounter [facility] Diagnosis Preoperative examination- Primary Preoperative examination, unspecified , GI problems, third trimester Acute gallstone pancreatitis Obesity affecting in third trimester, unspecified obesity type Iron deficiency anemia, unspecified iron deficiency anemia type History of biliary duct stent placement Other postprocedural status [facility] Diagnosis Preoperative examination- Primary Preoperative examination, unspecified , GI problems, third trimester Acute gallstone pancreatitis Obesity affecting in third trimester, unspecified obesity type Iron deficiency anemia, unspecified iron deficiency anemia type History of biliary duct stent placement Other postprocedural status Encounter for removal of biliary stent documented in this encounter [facility] note* Diagnosis Preoperative examination- Primary Preoperative examination, unspecified , GI problems, third trimester (HCC) Acute gallstone pancreatitis (HCC) Obesity affecting in third trimester, unspecified obesity type (HCC) Iron deficiency anemia, unspecified iron deficiency anemia type Contact dermatitis, unspecified contact dermatitis type, unspecified trigger- Primary documented in this encounter [facility] for referral (narrative)* Diagnostic Procedure Only (Routine) - Pending Review Specialty Diagnoses / Procedures Referred By Miguelangel t Referred To Contact [facility] Diagnoses 18 weeks gestation of Procedures OBSTETRIC ULTRASOUND WHI US PREG UTERUS AFTER 1ST TRIMEST GESTATION Junior Rivas APRN.CNP [address] [place] [address] [facility] [address] [place] [address] Referral ID Status Reason Start Date Expiration Date Visits Requested Visits Authorized [id number] Pending Review Auto-Generat ed Referral 08/14/2023 08/13/2024 1 1 [facility] for referral (narrative)* Outpatient Procedure (Routine) - Pending Review Specialty Diagnoses / Procedures Referred By Contankush t Referred To Contact [facility] Diagnoses 28 weeks gestation of Encounter for supervision of normal first in second trimester Late care affecting in second trimester Obesity affecting in third trimester, unspecified obesity type Procedures NON-STRESS TEST NON-STRESS TEST Robbi Simmons MD [address] [place] [address] [facility] [address] [place] [address] Referral ID Status Reason Start Date Expiration Date Visits Requested Visits Authorized [id number] Pending Review Auto-Generat ed Referral 10/23/2023 10/22/2024 10 1 * Diagnostic Procedure Only (Routine) - Authorized Specialty Diagnoses / Procedures Referred By Miguelangel banks Referred To Contact [facility] Diagnoses 28 weeks gestation of Encounter for supervision of normal first in second trimester Late care affecting in second trimester Obesity affecting in third trimester, unspecified obesity type Procedures OBSTETRIC ULTRASOUND WHI US PREG UTERUS AFTER 1ST TRIMEST GESTATION Robbi Simmons MD [address] [place] [address] [facility] [address] [place] [address] Referral ID Status Reason Start Date Expiration Date Visits Requested Visits Authorized [id number] Authorized Auto-Generat ed Referral 10/23/2023 10/22/2024 2 [facility] Diagnostic Procedure Only (Routine) - New Request Specialty Diagnoses / Procedures Referred By Miguelangel banks Referred To Contact [facility] Diagnoses History of biliary duct stent placement Procedures XR ABDOMEN 2V ROUTINE SUPINE W UPRIGHT/DECUB/CTL RADIOLOGIC EXAM [place]BDOMEN 2 [place] [address] [place] [address] [place] [address] Referral ID Status Reason Start Date Expiration Date Visits Requested Visits Authorized [id number] New Request Auto-Generat ed Referral 02/15/2024 03/15/2025 1 1 * Outpatient Procedure (Routine) - Pending Review Specialty Diagnoses / Procedures Referred By Miguelangel banks Referred To Contact [facility] Diagnoses History of biliary duct stent placement Encounter for removal of biliary stent Procedures ERCP ERCP REMOVE FOREIGN BODY/STENT BILIARY/[place] [address] [place] [address] [address] Referral ID Status Reason Start Date Expiration Date Visits Requested Visits Authorized [id number] Pending Review Auto-Generat ed Referral 02/15/2024 02/13/[address] [facility] for referral (narrative)* Outpatient Procedure (Routine) - Closed Specialty Diagnoses / Procedures Referred By Miguelangel banks Referred To Contact [facility] Diagnoses History of biliary duct stent placement Encounter for removal of biliary stent Procedures ERCP ERCP REMOVE FOREIGN BODY/STENT BILIARY/[place] [address] [address] [facility] [address] [place], [place] [address] [place] [address] Referral ID Status Reason Start Date Expiration Date V isits Requested Visits Authorized [id number] Closed Auto-Generate d Referral 02/16/2024 07/09/[address] [facility] for visit Narrative* Diagnostic Procedure Only (Routine) - Closed Specialty Diagnoses / Procedures Referred By Miguelangel banks Referred To Contact XR IMAGING Diagnoses History of biliary duct stent placement Procedures XR ABDOMEN 2V ROUTINE SUPINE W UPRIGHT/DECUB/CTL RADIOLOGIC EXAM ABDOMEN 2 [place] [address] [place] [address] [place] [address] Referral ID Status Reason Start Date Expiration Date V isits Requested Visits Authorized [id number] Closed Auto-Generate d Referral 02/15/2024 03/15/[address] [facility] for visit Narrative* Outpatient Procedure (Routine) - Closed Specialty Diagnoses / Procedures Referred By Miguelangel banks Referred To Contact [facility] Diagnoses History of biliary duct stent placement Encounter for removal of biliary stent Procedures ERCP ERCP REMOVE FOREIGN BODY/STENT BILIARY/[place] [address] [place] [address] [facility] [address] [place] [address] Referral ID Status Reason Start Date Expiration Date V isits Requested Visits Authorized [id number] Closed Auto-Generate d Referral 02/16/2024 07/09/2024 1 1 [facility] Summary Purpose Family History No Family History Records FoundNo Family History Records FoundNo Family History Records FoundNo Family History Records FoundNo Family History Records FoundNo Family History Records FoundNo Family History Records FoundNo Family History Records Found Advance Directives No Advanced Directives Records Found Date Activated Date Inactivated Comments 01/29/2024 8:29 PM 02/02/2024 8:35 PM Question Answer Comments Full Code Order Discussed With: Discussion Not M edically Appropriate Date Activated Date Inactivated Comments 01/29/2024 3:34 PM 01/29/2024 8:14 PM Question Answer Comments Full Code Order Discussed With: Discussion Not M edically Appropriate Date Activated Date Inactivated Comments 01/29/2024 8:29 PM 02/02/2024 8:35 PM Question Answer Comments Full Code Order Discussed With: Discussion Not M edically Appropriate Date Activated Date Inactivated Comments 01/29/2024 3:34 PM 01/29/2024 8:14 PM Question Answer Comments Full Code Order Discussed With: Discussion Not M edically Appropriate Health Concerns Problem Noted Date Diagnosed Date [facility] - [facility] 07/20/2023 [facility] - [place] 07/20/2023 Problem Noted Date Diagnosed Date [facility] - [facility] 07/20/2023 Education - [place] 07/20/2023 Problem Noted Date Diagnosed Date [facility] - [facility] 07/20/2023 Education - [place] 07/20/2023 Problem Noted Date Diagnosed Date [facility] - [facility] 07/20/2023 Education - [place] 07/20/2023 Problem Noted Date Diagnosed Date [facility] - [facility] 07/20/2023 Education - [place] 07/20/2023 Active Problems Noted Date Diagnosed Date [facility] - [facility] 07/20/2023 Education - [place] 07/20/2023 Active Problems Noted Date Diagnosed Date [facility] - [facility] 07/20/2023 Education - [place] 07/20/2023 Active Problems Noted Date Diagnosed Date [facility] - [facility] 07/20/2023 Education - [place] 07/20/2023 Chief Complaint and Reason for Visit Chief Complaint CRAMPING Chief Complaint CRAMPING BLEEDING Reason for Visit [id number] Chief Complaint CRAMPING BLEEDING [facility] Reason for Visit [id number] 24 weeks gestation of Spotting affecting 32 weeks gestation of Epigastric pain RUQ pain Reason for Referral Specialty Diagnoses / Procedures Referred By Seemaac t Referred To Contact Gastroenterology Diagnoses 32 weeks gestation of History of acute pancreatitis Gallstones Procedures CONSULT TO GASTROENTEROLOGY OFFICE/OUTPATIENT [facility] 60 MINUTES Robbi Simmons MD [address] [phone] Referral ID Status Reason Start Date Expiration Date Visits Requested Visits Authorized [id number] Authorized PCP Requested Referral 11/20/2023 11/19/2024 1 1 Specialty Diagnoses / Procedures Referred By Miguelangel banks Referred To Contact General Surgery Diagnoses 32 weeks gestation of History of acute pancreatitis Gallstones Procedures CONSULT TO GENERAL SURGERY OFFICE/OUTPATIENT [facility] 60 MINUTES Robbi Simmons MD [address] [id number] Referral ID Status Reason Start Date Expiration Date Visits Requested Visits Authorized [id number] Authorized PCP Requested Referral 11/20/2023 11/19/2024 1 1 Additional Source Comments INFORMATION SOURCE (unrecogn ized section and content) DATE CREATED AUTHOR 08/16/2021 [facility] DATE CREATED AUTHOR AUTHOR'S ORGANIZ ATION 04/16/2023 [facility]) DATE CREATED AUTHOR AUTHOR'S ORGANIZ ATION 12/08/2023 [facility] DATE CREATED AUTHOR AUTHOR'S ORGANIZ ATION 01/25/2024 [facility] DATE CREATED AUTHOR AUTHOR'S ORGANIZ ATION 03/08/2024 [facility] DATE CREATED AUTHOR AUTHOR'S ORGANIZ ATION 04/23/2024 [facility] DATE CREATED AUTHOR AUTHOR'S ORGANIZ ATION 12/13/[address] [facility] DATE CREATED AUTHOR AUTHOR'S ORGANIZ ATION 04/18/2025 [facility] Source Comments (unrecognize d section and content) In the event this informatio n is protected by the Federal Confidentiality of Alcohol and Drug Abuse Patient Records regulations: The Federal rules restrict any use of the information to criminally investigate or prosecute any alcohol or drug abuse patient.[facility] the event this information is protected by the Federal Confidentiality of Alcohol and Drug Abuse Patient Records regulations: The Federal rules restrict any use of the information to criminally investigate or prosecute any alcohol or drug abuse patient.[facility]In the event this information is protected by the Federal Confidentiality of Alcohol and Drug Abuse Patient Records regulations: The Federal rules restrict any use of the information to criminally investigate or prosecute any alcohol or drug abuse patient.[facility]In the event this information is protected by the Federal Confidentiality of Alcohol and Drug Abuse Patient Records regulations: The Federal rules restrict any use of the information to criminally investigate or prosecute any alcohol or drug abuse patient.[facility] the event this information is protected by the Federal Confidentiality of Alcohol and Drug Abuse Patient Records regulations: The Federal rules restrict any use of the information to criminally investigate or prosecute any alcohol or drug abuse patient.[facility]In the event this information is protected by the Federal Confidentiality of Alcohol and Drug Abuse Patient Records regulations: The Federal rules restrict any use of the information to criminally investigate or prosecute any alcohol or drug abuse patient.[facility]In the event this information is protected by the Federal Confidentiality of Alcohol and Drug Abuse Patient Records regulations: The Federal rules restrict any use of the information to criminally investigate or prosecute any alcohol or drug abuse patient.[facility] SouthIn the event this information is protected by the Federal Confidentiality of Alcohol and Drug Abuse Patient Records regulations: The Federal rules restrict any use of the information to criminally investigate or prosecute any alcohol or drug abuse patient.[facility] SouthIn the event this information is protected by the Federal Confidentiality of Alcohol and Drug Abuse Patient Records regulations: The Federal rules restrict any use of the information to criminally investigate or prosecute any alcohol or drug abuse patient.[facility]In the event this information is protected by the Federal Confidentiality of Alcohol and Drug Abuse Patient Records regulations: The Federal rules restrict any use of the information to criminally investigate or prosecute any alcohol or drug abuse patient.[facility]In the event this information is protected by the Federal Confidentiality of Alcohol and Drug Abuse Patient Records regulations: The Federal rules restrict any use of the information to criminally investigate or prosecute any alcohol or drug abuse patient.[facility]In the event this information is protected by the Federal Confidentiality of Alcohol and Drug Abuse Patient Records regulations: The Federal rules restrict any use of the information to criminally investigate or prosecute any alcohol or drug abuse patient.[facility]In the event this information is protected by the Federal Confidentiality of Alcohol and Drug Abuse Patient Records regulations: The Federal rules restrict any use of the information to criminally investigate or prosecute any alcohol or drug abuse patient.[facility]In the event this information is protected by the Federal Confidentiality of Alcohol and Drug Abuse Patient Records regulations: The Federal rules restrict any use of the information to criminally investigate or prosecute any alcohol or drug abuse patient.[facility]In the event this information is protected by the Federal Confidentiality of Alcohol and Drug Abuse Patient Records regulations: The Federal rules restrict any use of the information to criminally investigate or prosecute any alcohol or drug abuse patient.[facility]In the event this information is protected by the Federal Confidentiality of Alcohol and Drug Abuse Patient Records regulations: The Federal rules restrict any use of the information to criminally investigate or prosecute any alcohol or drug abuse patient.[facility]In the event this information is protected by the Federal Confidentiality of Alcohol and Drug Abuse Patient Records regulations: The Federal rules restrict any use of the information to criminally investigate or prosecute any alcohol or drug abuse patient.[facility]In the event this information is protected by the Federal Confidentiality of Alcohol and Drug Abuse Patient Records regulations: The Federal rules restrict any use of the information to criminally investigate or prosecute any alcohol or drug abuse patient.[facility] SouthIn the event this information is protected by the Federal Confidentiality of Alcohol and Drug Abuse Patient Records regulations: The Federal rules restrict any use of the information to criminally investigate or prosecute any alcohol or drug abuse patient.[facility]In the event this information is protected by the Federal Confidentiality of Alcohol and Drug Abuse Patient Records regulations: The Federal rules restrict any use of the information to criminally investigate or prosecute any alcohol or drug abuse patient.[facility] SouthIn the event this information is protected by the Federal Confidentiality of Alcohol and Drug Abuse Patient Records regulations: The Federal rules restrict any use of the information to criminally investigate or prosecute any alcohol or drug abuse patient.[facility]In the event this information is protected by the Federal Confidentiality of Alcohol and Drug Abuse Patient Records regulations: The Federal rules restrict any use of the information to criminally investigate or prosecute any alcohol or drug abuse patient.[facility] SouthIn the event this information is protected by the Federal Confidentiality of Alcohol and Drug Abuse Patient Records regulations: The Federal rules restrict any use of the information to criminally investigate or prosecute any alcohol or drug abuse patient.[facility] SouthIn the event this information is protected by the Federal Confidentiality of Alcohol and Drug Abuse Patient Records regulations: The Federal rules restrict any use of the information to criminally investigate or prosecute any alcohol or drug abuse patient.[facility] SouthIn the event this information is protected by the Federal Confidentiality of Alcohol and Drug Abuse Patient Records regulations: The Federal rules restrict any use of the information to criminally investigate or prosecute any alcohol or drug abuse patient.[facility]In the event this information is protected by the Federal Confidentiality of Alcohol and Drug Abuse Patient Records regulations: The Federal rules restrict any use of the information to criminally investigate or prosecute any alcohol or drug abuse patient.[facility]In the event this information is protected by the Federal Confidentiality of Alcohol and Drug Abuse Patient Records regulations: The Federal rules restrict any use of the information to criminally investigate or prosecute any alcohol or drug abuse patient.[facility]In the event this information is protected by the Federal Confidentiality of Alcohol and Drug Abuse Patient Records regulations: The Federal rules restrict any use of the information to criminally investigate or prosecute any alcohol or drug abuse patient.[facility] SouthIn the event this information is protected by the Federal Confidentiality of Alcohol and Drug Abuse Patient Records regulations: The Federal rules restrict any use of the information to criminally investigate or prosecute any alcohol or drug abuse patient.[facility] SouthIn the event this information is protected by the Federal Confidentiality of Alcohol and Drug Abuse Patient Records regulations: The Federal rules restrict any use of the information to criminally investigate or prosecute any alcohol or drug abuse patient.[facility] SouthIn the event this information is protected by the Federal Confidentiality of Alcohol and Drug Abuse Patient Records regulations: The Federal rules restrict any use of the information to criminally investigate or prosecute any alcohol or drug abuse patient.[facility]In the event this information is protected by the Federal Confidentiality of Alcohol and Drug Abuse Patient Records regulations: The Federal rules restrict any use of the information to criminally investigate or prosecute any alcohol or drug abuse patient.[facility]In the event this information is protected by the Federal Confidentiality of Alcohol and Drug Abuse Patient Records regulations: The Federal rules restrict any use of the information to criminally investigate or prosecute any alcohol or drug abuse patient.[facility]In the event this information is protected by the Federal Confidentiality of Alcohol and Drug Abuse Patient Records regulations: The Federal rules restrict any use of the information to criminally investigate or prosecute any alcohol or drug abuse patient.[facility] SouthIn the event this information is protected by the Federal Confidentiality of Alcohol and Drug Abuse Patient Records regulations: The Federal rules restrict any use of the information to criminally investigate or prosecute any alcohol or drug abuse patient.[facility] SouthIn the event this information is protected by the Federal Confidentiality of Alcohol and Drug Abuse Patient Records regulations: The Federal rules restrict any use of the information to criminally investigate or prosecute any alcohol or drug abuse patient.[facility] SouthIn the event this information is protected by the Federal Confidentiality of Alcohol and Drug Abuse Patient Records regulations: The Federal rules restrict any use of the information to criminally investigate or prosecute any alcohol or drug abuse patient.[facility] SouthIn the event this information is protected by the Federal Confidentiality of Alcohol and Drug Abuse Patient Records regulations: The Federal rules restrict any use of the information to criminally investigate or prosecute any alcohol or drug abuse patient.[facility] SouthIn the event this information is protected by the Federal Confidentiality of Alcohol and Drug Abuse Patient Records regulations: The Federal rules restrict any use of the information to criminally investigate or prosecute any alcohol or drug abuse patient.[facility] Reason for Visit (unrecogniz ed section and content) Reason Onset Date Comments Care 08/14/2023 Reason Comments Results Orders Reason Comments US Specialty Diagnoses / Procedures Referred By Contac t Referred To Contact [facility] Diagnoses 18 weeks gestation of Procedures OBSTETRIC ULTRASOUND WHI US PREG UTERUS AFTER 1ST TRIMEST GESTATION Junior Rivas APRN.MAINTENANCE REPAIRER [address] [place] [address] [facility] [address] [place] [address] Referral ID Status Reason Start Date Expiration Date V isits Requested Visits Authorized [id number] Closed Auto-Generate d Referral 08/14/2023 08/13/2024 1 1 Reason Onset Date Comments Care 09/11/2023 Reason Comments STD Reason Onset Date Comments Care 09/22/2023 Reason Onset Date Comments Care 10/09/2023 Reason Onset Date Comments Care 10/23/2023 Reason Onset Date Comments Care 11/06/2023 Reason Onset Date Comments Care 11/10/2023 Reason Comments OB No movement, abdominal pain Reason Onset Date Comments Care 11/20/2023 Specialty Diagnoses / Procedures Referred By Contac t Referred To Contact [facility] Diagnoses 28 weeks gestation of Encounter for supervision of normal first in second trimester Late care affecting in second trimester Obesity affecting in third trimester, unspecified obesity type Procedures OBSTETRIC ULTRASOUND WHI US PREG UTERUS AFTER 1ST TRIMEST GESTATION Robbi Simmons MD [address] [place] [address] [facility] [address] [place] [id number] Referral ID Status Reason Start Date Expiration Date V isits Requested Visits Authorized [id number] Closed Auto-Generate d Referral 10/23/2023 10/22/2024 2 1 Reason Onset Date Comments Care 11/27/2023 Reason Comments Consult Gallstones Specialty Diagnoses / Procedures Referred By Contac t Referred To Contact General Surgery Diagnoses 32 weeks gestation of History of acute pancreatitis Gallstones Procedures CONSULT TO GENERAL SURGERY OFFICE/OUTPATIENT NEW HIGH MDM 60 MINUTES Robbi Simmons MD [address] [place] [address] Referral ID Status Reason Start Date Expiration Date V isits Requested Visits Authorized [id number] Closed PCP Requested Referral 11/20/2023 11/19/2024 1 1 Reason Comments Appointment Reason Onset Date Comments Care 12/11/2023 Reason Onset Date Comments Care 12/18/2023 Reason Onset Date Comments Population Health Navigation Outreach 12/28/2023 OB/PEDS Reason Comments Consult Reason Onset Date Comments Care 01/01/2024 Reason Comments Orders Reason Comments Ob Delivery Note Reason Comments Early Reason Comments Post Op Follow Up Specialty Diagnoses / Procedures Referred By Contac t Referred To Contact General Surgery / GENERAL SURGERY Diagnoses 32 weeks gestation of post op wash out Procedures OFFICE/OUTPATIENT ESTABLISHED MOD MDM 30 MIN [place] [address] [place] [address] Joana Hernandez MD [address] [address] Referral ID Status Reason Start Date Expiration Date Visits Re quested Visits Authorized [id number] Closed 02/10/2024 07/09/2024 1 1 Reason Comments Routine Reason Comments Follow Up Follow-up for possib le ANTONIO drain removal. Reason Comments Appointment Spoke with patient a nd confirmed procedure arrival time 0730 for 0830 appointment. When you arrive please go to admitting/registration first, then you will be directed to the Endoscopy Dept.on the 2nd floor. If you have any questions about your appointment or your prep instructions please call [phone]. If you need to reschedule call [phone]. CECILIA D[place] Reason Comments Derm Problem Last starte d having itchy bumps on legs, mostly on inner thighs, thought maybe it was just from being hot. Today has had nonstop itching. Care Teams (unrecognized sec tion and content) Team Status: Active Member Role Status Dates No Primary Care Physician Primary Care Provider Active Team Status: Inactive Member Role Status Dates No Primary Care Physician Primary Care Provider Active Dr. Manda Oconnor MD Attending Provider Active Team Status: Inactive Member Role Status Dates No Primary Care Physician Primary Care Provider Active Dr. Robbi Simmons , Attending Provider Active Goals (unrecognized section and content) Goals may be documented in a n alternate sectionGoals may be documented in an alternate sectionGoals may be documented in an alternate section FOR RECORDS PERTAINING TO PATIENTS WHO ARE [...] BE BASED ON THE PRIMARY CLINICAL RECORDS. [employer] provides no warranty or guarantee of the accuracy or completeness of information in this document."
[2025-07-06 04:20] LABS: Hematocrit 39.6 % (37-47); Hemoglobin 12.8 g/dL (12.0-15.0); Immature Granulocytes Count 0.030 X10^3/uL (0.0-0.0); Mean Corp Hgb Conc 32.3 g/dL (32-36); Mean Corpuscular Volume 80.0 fL (81-99); Mean Platelet Vol. 9.4 fl (6.2-12.0); NRBC Flagged by Analyzer 0 % (0-5); Platelet Count 314 K/mm3 (150-450); RBC Distribution Width CV 14.1 % (11.6-14.6); RBC Distribution Width SD 41.1 fl (35.1-43.9); Red Blood Count 4.95 M/mm3 (4.2-5.4); White Blood Count 9.6 K/mm3 (4.4-11.0)
[2025-07-06] MEDS: 0.9% Normal Saline (1000mL) 1,000 ML 999 ML IV ×2 (04:22→07:36)
[2025-07-06 04:25] LABS: Color, Urine Yellow (Yellow); Glucose, Dipstick Normal (Normal); Ketone-Dipstick Negative (Negative); Leukocyte Esterase-Dipstick 500 /ul (Negative); Mucous, Urine 0 SEEN /hpf (<or=2+); Nitrite-Dipstick Negative (Negative); Occult Blood-Urine 25 /ul (Negative); Protein-Dipstick 30 mg/dl (Negative); Specific Gravity, Urine 1.015 (1.002-1.030); Squamous Epithelial Cells - UA 0 SEEN /hpf (5-10); Urine Bilirubin Dipstick Negative (Negative)
[2025-07-06 04:46] LABS: Red Blood Cells-Urine 0-5 SEEN /hpf (0-5)
[2025-07-06 04:47] LABS: Internal QC Validated? YES +Cl - CLEAR BKGD; Pregnancy, Serum, hCG Quali. NEGATIVE Negative
[2025-07-06 05:01] LABS: AST(SGOT) 24 U/L (<=31); Alanine Aminotransfer ALT/SGPT 27 U/L (<=34); Albumin, Serum 4.2 g/dL (3.5-5.0); Alkaline Phosphatase 123 U/L (35-104); Anion Gap 12 (7-18); BUN 11 mg/dL (4-19); BUN/Creat Ratio 12.8 RATIO (10-20); Calcium,Total 9.7 mg/dL (7.6-11.0); Carbon Dioxide 26.5 mmol/L (20.0-29.0); Chloride 100 mmol/L (96-106); Estimated Creatinine Clearance 132.57 ml/min (50-250); Globulin 3.3 g/dL (2.2-4.2); Glucose 85 mg/dL (70-99); Lipase 28 U/L (13-75); Potassium 4.0 mmol/L (3.5-5.1)
[2025-07-06] MEDS: Ceftriaxone 2 GM in 0.9% Normal Saline (50mL MB+) 50 ML IV (05:24)
[2025-07-06 05:46] VITALS: PULSE 109; RESP 18; O2SAT 97
[2025-07-06 07:00] VITALS: BP 123/75; PULSE 118; RESP 16; TEMP 36.6; O2SAT 98
--- NOTE | 2025-07-06 07:28 | EX.ED.DYSGE1 ---
HPI History of Present Illness Chief Complaint: Flank Pain Narrative Narrative: Patient was seen and examined after presenting to ED for right-sided flank pain states she is also nauseated vomiting overall feeling generally unwell. PFSH PFSH Medical History CPD (cephalo-pelvic disproportion) Chlamydia infection affecting Gallstone pancreatitis Home Medications ?Medication ?Instructions ?Recorded ?Last Taken ?Type cyclobenzaprine 5 mg tablet 5 mg PO TID 06/02/25 06/01/25 History meloxicam 15 mg tablet 15 mg PO DAILY 06/02/25 06/01/25 History omeprazole 20 mg capsule,delayed 20 mg PO DAILY #30 CAPSULES 06/02/25 Unknown Rx release cefdinir 300 mg capsule 300 mg PO BID #14 caps 07/06/25 Unknown Rx ondansetron 4 mg disintegrating 4 mg PO Q8H PRN PRN Nausea #30 tabs 07/06/25 Unknown Rx tablet Allergy/AdvReac Type Severity Reaction Status Date / Time No Known Allergies Allergy Verified 07/06/25 03:48 Surgical History Delivery by section Social History housing: house Smoking Status: Never smoker Electronic Cigarette Use: with nicotine ROS ROS ED ROS Narrative Pertinent Positives: Nausea vomiting right-sided flank and abdominal pain Pertinent Negatives: Fevers diarrhea chest pain pressure shortness of breath The remainder of review of systems negative unless otherwise stated in the HPI above. Systems reviewed including constitutional, psychiatric, cardiovascular, respiratory, integument, HENT, gastrointestinal. EXAM Physical Exam Narrative Exam Narrative: Patient is afebrile she is tachycardic but her blood pressure is maintaining and she is oxygenating well on room air abdomen is soft nondistended she has right-sided CVA tenderness she has intact and equal MSPs no overlying erythema or crepitus or rash or any other kind of skin discoloration to her abdomen and flank area Const Vital Signs: 07/06/25 03:46 07/06/25 05:46 07/06/25 07:00 Temperature 98.9 F 97.9 F Temperature Source Oral Oral Pulse Rate 126 H 109 H 118 H Respiratory Rate 16 18 16 Blood Pressure 124/87 H 123/75 H Blood Pressure Mean 99 91 Pulse Ox 98 97 98 Oxygen Delivery Method Room Air Room Air Room Air MDM MDM MDM Narrative Medical decision making narrative: Nursing notes, triage notes, available previous documentation, and vital signs were reviewed. Any discrepancies noted were addressed. Differential Diagnoses: Pyelonephritis nephrolithiasis diverticular disease she is already had a cholecystectomy because she had gallstone pancreatitis Interventions: Zofran Toradol morphine Antibiotics Given: Ceftriaxone Fluids Given: 2 L normal saline Labs Reviewed: No leukocytosis leukopenia anemia electrolyte abnormality renal insufficiency or transaminitis she is not lipase is 28 urine with evidence of infection she has 500 leukocyte esterase with 25-50 WBCs Imaging Reviewed: CT abdomen pelvis no acute pathology Previous Documentation Reviewed: None available or applicable at this time. ED Course: Patient presenting with right-sided flank pain found to have a UTI she was given dose of antibiotics here CT was otherwise unremarkable we will plan on discharging this patient and she is receiving a second liter of fluids. This note was made utilizing voice recognition software. All attempts were made to correct spelling or other errors prior to note completion. However, due to the fast-paced nature of emergency medicine, some errors may still be present. Lab Data Labs: Laboratory Results - last 24 hr 07/06/25 07/06/25 03:54 04:21 WBC 9.6 RBC 4.95 Hgb 12.8 Hct 39.6 MCV 80.0 L MCH 25.9 L MCHC 32.3 RDW Std Deviation 41.1 RDW Coeff of Adam 14.1 Plt Count 314 MPV 9.4 Immature Gran % (Auto) 0.300 Neut % (Auto) 68.6 Lymph % (Auto) 23.5 Clay % (Auto) 5.8 Eos % (Auto) 1.5 Baso % (Auto) 0.3 Absolute Neuts (auto) 6.6 Absolute Lymphs (auto) 2.25 Nucleated RBC % 0 Sodium 138 Potassium 4.0 Chloride 100 Carbon Dioxide 26.5 Anion Gap 12 BUN 11 Creatinine 0.88 Estim Creat Clear Calc 132.57 Est GFR (MDRD) Non-Af 95 BUN/Creatinine Ratio 12.8 Glucose 85 Calcium 9.7 Total Bilirubin 0.81 AST 24 ALT 27 Alkaline Phosphatase 123 H Total Protein 7.4 Albumin 4.2 Globulin 3.3 Albumin/Globulin Ratio 1.3 Lipase 28 Serum , Qual NEGATIVE Urine Color Yellow Urine Clarity Sl. Cloudy Urine pH 8.0 Ur Specific [place] 1.015 Urine Protein 30 H Urine Glucose (UA) Normal Urine Ketones Negative Urine Occult Blood 25 H Urine Nitrite Negative Urine Bilirubin Negative Urine Urobilinogen Normal Ur Leukocyte Esterase 500 H Urine RBC 0-5 SEEN Urine WBC 25-50 SEEN Ur Squamous Epith Cells 0 SEEN Urine Bacteria RARE Urine Mucus 0 SEEN Radiography Diagnostic Testing: Clinical Impression(s) from Imaging Studies Abdomen/Pelvis CT 07/06/25 04:09 IMPRESSION: 1. No acute findings in the abdomen or pelvis. 2. Hepatosplenomegaly. 3. Focal fatty infiltration along the falciform ligament. 4. Bilateral adnexal cysts. Reading [facility] Discharge Plan Triage Chief Complaint: Flank Pain ED Provider: Fabricio Velasquez Dx/Rx/DC Orders Clinical Impression: Acute right flank pain, Acute UTI, Nausea Instructions: UTIs Prescriptions: New cefdinir 300 mg capsule 300 mg PO BID Qty: 14 0RF ondansetron 4 mg tablet,disintegrating 4 mg PO Q8H PRN PRN (Reason: Nausea) Qty: 30 0RF No Action meloxicam 15 mg tablet 15 mg PO DAILY cyclobenzaprine 5 mg tablet 5 mg PO TID omeprazole 20 mg capsule,delayed release(DR/EC) 20 mg PO DAILY Qty: 30 0RF Primary Care Provider: Jacqueline Epperson NP Referrals: Jacqueline Epperson NP, [employer] [Primary Care Provider, Family Practice] Activity Restrictions/Additional Instructions: Follow-up with your doctor take antibiotics to completion come back if worse Print Language: Luxembourgish Disposition Disposition: Home, Self Care
[2025-07-06 07:53] VITALS: BP 101/69; PULSE 102; RESP 21; TEMP 37.1; O2SAT 100
[2025-07-06 07:54] VITALS: BP 110/69; PULSE 101; RESP 20; TEMP 37.1; O2SAT 99
== END 2025-07-06 08:04 | disposition home or self-care (01) ==
PROVIDERS: Emergency Provider Specialist/Technologist Athletic Trainer; PCP Nurse Practitioner Family; Visit Provider Specialist/Technologist Athletic Trainer
DX: R10.A1 Flank pain, right side (principal); N39.0 Urinary tract infection, site not specified; R11.0 Nausea
CPT/HCPCS: 74177; 80053; 81001; 83690; 84703; 85025; 96361; 96365; 96375; 99282; Q9967; A4216; J0696; J2405